=== PATIENT | female | born 1975 | race Caucasian/White ===

== ENCOUNTER 2021-06-09 16:29 | Emergency (ER) | payer MEDICARE, MEDICAID, SELFPAY ==
--- NOTE | 2021-06-09 | ECG_ITS ---
Test Reason : NUMBNESS Blood Pressure : / mmHG Vent. Rate : 072 BPM Atrial Rate : 072 BPM P-R Int : 116 ms QRS Dur : 082 ms QT Int : 404 ms P-R-T Axes : 076 075 080 degrees QTc Int : 442 ms Normal sinus rhythm Normal ECG When compared with ECG of 10-JUN-2014 16:24, No significant change was found Referred By: Generic ED Physician Electronically Signed By:JORDON MOLINA
[2021-06-09 17:55] VITALS: BP 132/69; PULSE 96; RESP 18; TEMP 36.7; O2SAT 98; BMI 24.3
[2021-06-09 20:43] LABS: Alanine Aminotransferase 9 U/L (0-31); Albumin Level 4.3 g/dL (3.5-5.0); Alkaline Phosphatase 106 U/L (39-117); Anion Gap 14 (12-20); Aspartate Amino Transferase 12 U/L (5-31); Bilirubin Total 0.3 mg/dL (0.0-1.0); Blood Urea Nitrogen 8 mg/dL (9-16); Calcium 9.7 mg/dL (8.4-10.2); Carbon Dioxide 29 mmol/L (22-29); Chloride 102 mmol/L (96-108); Creatinine Clr Calc Pharmacy 84.6; Estimated Glomerular Filt Rate > 60; Glucose Random 92 mg/dL (60-115); Potassium 3.8 mmol/L (3.3-5.1); Sodium 141 mmol/L (135-145); Total Protein 6.8 g/dL (6.5-8.0)
[2021-06-09 20:46] LABS: Basophils Absolute Auto 0.1 X10*3/uL (0.0-0.2); Basophils Percent Auto 0.6 % (0-2); Eosinophils Absolute Auto 0.2 X10*3/uL (0.0-0.4); Hemoglobin 11.9 g/dl (12.0-16.0); Imm Gran Pct Auto 0.3 % (0.0-0.4); MANUAL DIFF FLAG SCAN; SCAN SMEAR FLAG 1
[2021-06-09 20:50] LABS: Hematocrit 35.2 % (37.0-47.0); Imm Gran Abs Auto 0.04 X10*3/uL (0.00-0.03); Lymphocytes Absolute Auto 4.3 X10*3/uL (1.2-4.9); Mean Corpuscular HGB Conc 33.8 g/dl (31.0-35.0); Mean Corpuscular Hemoglobin 30.5 pg (27.0-33.0); Mean Corpuscular Volume 90.3 fL (80.0-98.0); Monocytes Absolute Auto 0.6 X10*3/uL (0.1-1.2); Monocytes Percent Auto 4.9 % (2-11); Neutrophils Absolute Auto 6.4 x10*3/uL (2.0-8.3); Neutrophils Percent Auto 55.2 % (45-73); Platelet Count 281 X10*3/uL (160-400); Red Cell Distribution Width 14.4 % (11.0-16.0); White Blood Count 11.6 X10*3/uL (4.8-10.8)
[2021-06-09 21:15] LABS: SLIDE REVIEW VERIFIED
== END 2021-06-09 23:09 | disposition left against medical advice (07) ==
PROVIDERS: Emergency Provider Emergency Medicine; PCP Internal Medicine
DX: R07.89 Other chest pain (principal); R20.0 Anesthesia of skin
CPT/HCPCS: 36415; 80053; 85025; 93005; 99283

== ENCOUNTER 2022-01-15 05:39 | Outpatient (REF) | payer MEDICARE, MEDICAID, SELFPAY | END 2022-01-15 05:40 | disposition home or self-care (01) | LOC: HO.CT 05:39 | PROVIDERS: PCP Internal Medicine; Visit Provider Psychiatry & Neurology Neurology | DX: Z13.89 Encounter for screening for other disorder (principal) ==

== ENCOUNTER 2022-01-22 10:38 | Outpatient (REF) | payer MEDICARE, MEDICAID, SELFPAY ==
--- NOTE | ~2022-01-22 | CT_ITS ---
EXAMINATION: CT HEAD WITH/WITHOUT CONTRAST CLINICAL INFORMATION: 46-year-old with seizures. COMPARISON: 05/19/2014 CT TECHNIQUE: Contiguous axial imaging was performed from the skull base to vertex before and after the administration of 85 mL of Omnipaque [address] examination was performed using dose optimization techniques as appropriate, variously including the following: *Automated exposure control *Adjustment of mA and/or kV according to patient size (this includes techniques or standardized protocols for targeted exams where dose is matched to indication/reason for exam; i.e. extremities or head) *Use of iterative reconstruction technique DLP: 1561 mGy-cm FINDINGS: Brain Volume: Normal for age within the limitations of a qualitative assessment. Structural: Mild cystic dilatation of the vellum interpositum is noted, which is an anatomic variant, unchanged in appearance. Brain and Meninges: The brain appears structurally within normal limits and is unremarkable in morphology and attenuation within the limitations of the study (streak artifact from metallic piercings overlying the right orbit and left ear partially obscuring the anterior and middle cranial fossae as well as the posterior fossa.) Earl-white matter interface is preserved. No intracranial mass lesions, extra-axial fluid collections, space-occupying process or mass effect are identified. No pathologic intracranial enhancement identified within the limitations of the exam. Ventricles and Subarachnoid Spaces: The ventricular system and subarachnoid spaces are within normal limits without hydrocephalus. Orbital Structures: Grossly unremarkable within the limitations of the study. Osseous Structures, Sinuses/Mastoids, Extracranial Soft Tissues: Possible tiny retention cyst in the sphenoid sinus on the left versus retained secretions. Osseous structures appear intact. Visualized extra cranial soft tissue structures appear grossly unremarkable. CT/CT head/brain wo/w con IMPRESSION: Normal CT of the brain without and with contrast within the limitations of the study as described above.
[2022-01-22] MEDS: iohexoL 350 MG/ML 100 ML INFUS..BTL IV (11:35)
== END 2022-01-22 10:39 | disposition home or self-care (01) ==
LOC: HO.CT 10:38
PROVIDERS: PCP Internal Medicine; Visit Provider Psychiatry & Neurology Neurology
DX: R56.9 Unspecified convulsions (principal)
CPT/HCPCS: 70470; Q9967

== ENCOUNTER 2022-07-17 16:30 | Emergency (ER) | payer MEDICARE, MEDICAID, SELFPAY ==
--- NOTE | ~2022-07-17 | XR_ITS ---
EXAMINATION: CHEST 2 VIEWS CLINICAL INFORMATION: chest pain . COMPARISON: 07/17/2016. TECHNIQUE: PA and lateral views of the chest obtained. FINDINGS: The lungs are well expanded. No focal infiltrate, effusion, edema, or pneumothorax. Cardiac and mediastinal silhouettes are within normal limits for technique. No acute bony abnormality seen. Left-sided vagal nerve stimulator incidentally noted XR/XR chest 2V IMPRESSION: No evidence of acute disease compared to 07/17/2016
--- NOTE | ~2022-07-17 | US_ITS ---
EXAMINATION: US ABDOMEN LIMITED CLINICAL INFORMATION: Right upper quadrant pain. COMPARISON: CT abdomen pelvis 03/08/2015 TECHNIQUE: Real-time imaging of the right upper quadrant abdominal viscera. FINDINGS: PANCREAS: The pancreas appears unremarkable, without masses or ductal dilatation, with the exception of the tail which is obscured by bowel gas. LIVER: The liver is normal in size. The liver contour is normal. Parenchymal echogenicity is normal. No focal hepatic lesion. There is no intrahepatic biliary duct dilatation seen. GALLBLADDER: The gallbladder is physiologically distended without evidence of stones, sludge, polyps, wall thickening or pericholecystic fluid. COMMON BILE DUCT: Normal in caliber measuring 0.3 cm in diameter. RIGHT KIDNEY: No hydronephrosis. No renal calculi or focal parenchymal lesions. The kidney measures 11.6 cm in maximum dimension. FREE FLUID: None. US/US abdomen limited IMPRESSION: No significant abnormality is seen. A cause for the patient's right upper quadrant pain has not been found.
[2022-07-17 16:45] VITALS: BP 127/69; PULSE 81; RESP 18; TEMP 36.1; O2SAT 97; BMI 23.0
--- NOTE | 2022-07-17 16:45 | ED_ITS ---
HPI - Chest Pain General Chief Complaint: General Medical Stated Complaint: flank pain Time Seen by Provider: 07/17/22 20:32 Related Data Allergies Allergy/AdvReac Type Severity Reaction Status Date / Time ciprofloxacin [From CIPRO] Allergy Unknown UNKNOWN Verified 07/17/22 16:48 From CIPRO Allergy Unknown UNKNOWN Uncoded 06/09/21 17:55 ON LICENSE OF [facility] Social History Social History Advance Directives: No Advance Directives Information Provided: No Physical Exam Vital Signs: Vital Signs: Last Vital Signs Temp 97.7 F 07/17/22 20:12 Pulse 84 07/17/22 20:12 Resp 16 07/17/22 20:12 BP 103/65 07/17/22 20:12 Pulse Ox 99 07/17/22 20:12 O2 Del Method 07/17/22 20:12 BMI result Body Mass Index 23.0 Course Course Course Narrative: RME - 46 yo female with history of seizures presents to the ER for evaluation of acute onset of severe right lower pleuritic chest pain that radiates to her back that started 1 hour ago. Crying in triage, unable to sit or move. Unable to take a deep breath. Non-tender on exam, lungs are clear on the right. Feels like she is going to pass out. Labs, EKG, CXR ordered for now. Medical Decision Making Lab Data 07/17/22 17:16 07/17/22 17:16 Labs: Lab Results 07/17/22 07/17/22 07/17/22 Range/Units 17:16 17:16 17:16 WBC 13.0 H (4.8-10.8) X10*3/uL RBC 3.85 L (4.20-5.50) X10*6/uL Hgb 11.4 L (12.0-16.0) g/dl Hct 35.0 L (37.0-47.0) % MCV 90.9 (80.0-98.0) fL MCH 29.6 (27.0-33.0) pg MCHC 32.6 (31.0-35.0) g/dl RDW 14.2 (11.0-16.0) % Plt Count 253 (160-400) X10*3/uL MPV 9.2 L (9.4-12.3) fL Immature Gran % (Auto) 0.3 (0.0-0.4) % Neut % (Auto) 62.5 (45-73) % Lymph % (Auto) 29.5 (20-40) % Steele % (Auto) 5.6 (2-11) % Eos % (Auto) 1.5 (0-4) % Baso % (Auto) 0.6 (0-2) % Lymph # (Auto) 3.8 (1.2-4.9) X10*3/uL Steele # (Auto) 0.7 (0.1-1.2) X10*3/uL Eos # (Auto) 0.2 (0.0-0.4) X10*3/uL Baso # (Auto) 0.1 (0.0-0.2) X10*3/uL Abs Immat Gran (auto) 0.04 H (0.00-0.03) X10*3/uL Absolute Neuts (auto) 8.1 (2.0-8.3) x10*3/uL Absolute Nucleated RBC 0.000 (0.0-0.012) X10*3/uL Nucleated RBC % (auto) 0.0 (0.0-0.2) /100WBC PT 11.6 (10.0-13.1) SEC INR 1.0 (0.9-1.1) APTT (26.0-36.4) SEC Sodium 138 (135-145) mmol/L Potassium 4.3 (3.3-5.1) mmol/L Chloride 101 (96-108) mmol/L Carbon Dioxide 27 (22-29) mmol/L Anion Gap 14 (12-20) BUN 8 L (9-16) mg/dL Creatinine 0.69 (0.5-1.4) mg/dL Estim Creat Clear Calc 86.0 Estimated GFR > 60 Random Glucose 88 (60-115) mg/dL Calcium 9.5 (8.4-10.2) mg/dL Magnesium 1.9 (1.6-2.6) mg/dL Total Bilirubin 0.3 (0.0-1.0) mg/dL Direct Bilirubin < 0.2 (0.0-0.5) mg/dL AST 12 (5-31) U/L ALT 8 (0-31) U/L Alkaline Phosphatase 123 H (39-117) U/L Troponin I High Sens (<3.5-17.0) ng/L Total Protein 6.8 (6.5-8.0) g/dL Albumin 4.3 (3.5-5.0) g/dL Urine Color Urine Appearance Urine pH (5.0-9.0) Ur Specific Tutwiler (1.005-1.025) Urine Protein (Neg-Trace) mg/dL Urine Glucose (UA) (Negative) mg/dL Urine Ketones (Negative) mg/dL Urine Blood (Negative) Urine Nitrite (Negative) Ur Leukocyte Esterase (Negative) 07/17/22 07/17/22 07/17/22 Range/Units 17:16 17:16 20:20 WBC (4.8-10.8) X10*3/uL RBC (4.20-5.50) X10*6/uL Hgb (12.0-16.0) g/dl Hct (37.0-47.0) % MCV (80.0-98.0) fL MCH (27.0-33.0) pg MCHC (31.0-35.0) g/dl RDW (11.0-16.0) % Plt Count (160-400) X10*3/uL MPV (9.4-12.3) fL Immature Gran % (Auto) (0.0-0.4) % Neut % (Auto) (45-73) % Lymph % (Auto) (20-40) % Steele % (Auto) (2-11) % Eos % (Auto) (0-4) % Baso % (Auto) (0-2) % Lymph # (Auto) (1.2-4.9) X10*3/uL Steele # (Auto) (0.1-1.2) X10*3/uL Eos # (Auto) (0.0-0.4) X10*3/uL Baso # (Auto) (0.0-0.2) X10*3/uL Abs Immat Gran (auto) (0.00-0.03) X10*3/uL Absolute Neuts (auto) (2.0-8.3) x10*3/uL Absolute Nucleated RBC (0.0-0.012) X10*3/uL Nucleated RBC % (auto) (0.0-0.2) /100WBC PT (10.0-13.1) SEC INR (0.9-1.1) APTT 31.6 (26.0-36.4) SEC Sodium (135-145) mmol/L Potassium (3.3-5.1) mmol/L Chloride (96-108) mmol/L Carbon Dioxide (22-29) mmol/L Anion Gap (12-20) BUN (9-16) mg/dL Creatinine (0.5-1.4) mg/dL Estim Creat Clear Calc Estimated GFR Random Glucose (60-115) mg/dL Calcium (8.4-10.2) mg/dL Magnesium (1.6-2.6) mg/dL Total Bilirubin (0.0-1.0) mg/dL Direct Bilirubin (0.0-0.5) mg/dL AST (5-31) U/L ALT (0-31) U/L Alkaline Phosphatase (39-117) U/L Troponin I High Sens 4.1 (<3.5-17.0) ng/L Total Protein (6.5-8.0) g/dL Albumin (3.5-5.0) g/dL Urine Color Yellow Urine Appearance Clear Urine pH 5.5 (5.0-9.0) Ur Specific Tutwiler <= 1.005 (1.005-1.025) Urine Protein Negative (Neg-Trace) mg/dL Urine Glucose (UA) Negative (Negative) mg/dL Urine Ketones Negative (Negative) mg/dL Urine Blood Small (1+) H (Negative) Urine Nitrite Negative (Negative) Ur Leukocyte Esterase Negative (Negative)
--- NOTE | 2022-07-17 16:47 | ECG_ITS ---
Test Reason : CHEST PAIN Blood Pressure : / mmHG Vent. Rate : 076 BPM Atrial Rate : 076 BPM P-R Int : 126 ms QRS Dur : 076 ms QT Int : 414 ms P-R-T Axes : 071 078 068 degrees QTc Int : 465 ms Normal sinus rhythm Normal ECG When compared with ECG of 09-JUN-2021 19:54, No significant change was found Referred By: Mary Carmen Menchaca Electronically Signed By:Prosper Richard
--- OUTSIDE RECORDS SUMMARY | 2022-07-17 17:25 | XMS_ITS | Continuity of Care Document ---
:1975 Author Organization [address], [address] [place] [address]- Care Team Providers Name Role Phone Leana GUO, Jac Primary Care Physician [place] [facility] [place] 01/31/21 - 03/02/[address], [address] [place], [place] [address] Attending Physician: Marcos Lopez Admitting Physician: AdmtrMarcos Referring Physician: Admtr, Ar8 Allergies, Adverse Reactions, Alerts Substance Reaction Severity Status famotidine Famotidine allergy Persistent Severe Active dizzy,lightheaded Cipro rash Active Medications acetaminophen 325 mg oral capsule 2 capsule = 650 mg, By Mouth, Every 4 hours, PRN as needed for pain, # 90 capsule, 0 Refills, Maintenance, 01/31/21 13:18:00 EDT, Capsule, Partial fill upon patient request if the prescription is for aschedule II opioid drug. Start Date: 01/31/21 Status: Orderedacetaminophen-oxyCODONE 325 mg-5 mg oral tablet 1, tablet, By Mouth, Every 6 hours, PRN, # 20 tablet, Refills 0, Tot. Refills 0, Maintenance, Pain ,Moderate, 01/16/21 10:02:00 EDT, Route to Pharmacy Electronically, [id number] Tablet, Partial fill upon patient request if the prescr... Start Date: 01/16/21 Status: OrderedAlprazolam 0.5 mg, By Mouth, 4 times a day, Refills 0, Tot. Refills 0, 01/25/08 13:42:52 EDT Start Date: 01/25/08 Status: Orderedcitalopram 40 mg oral tablet 40 mg, 1, tablet, By Mouth, Daily in AM, # 30 tablet, Refills 0, Maintenance, 09/14/18 8:57:22 EDT Start Date: 09/14/18 Status: OrderedDilantin = 300 mg, By Mouth, 3 times a day, 0 Refills, 01/25/08 13:41:32 EDT Start Date: 01/25/08 Status: Orderedibuprofen 600 mg oral tablet 600 mg, 1, tablet, By Mouth, Every 6 hours, Refills 0, Maintenance, 01/16/21 7:44:00 EDT, Partial fill upon patient request if the prescription is for a schedule II opioid drug. Start Date: 01/16/21 Status: OrderedLorazepam 0 Refills, Maintenance, 01/03/21 10:41:00 EDT, Partial fill upon patient request if the prescriptionis for a schedule II opioid drug. Start Date: 01/03/21 Status: Ordered Social History Social History Type Response Smoking Status 10 or more cigarettes (1/2 p ack or more)/day in last 30 days entered on: 09/25/18 Sex Female
--- OUTSIDE RECORDS SUMMARY | 2022-07-17 17:25 | XMS_ITS | Continuity of Care Document ---
:1975 Author Organization [address], [address] [place] [address]- Care Team Providers Name Role Phone Leana GUO, [facility] Primary Care Physician Encounter [facility] [place] Date(s): 01/03/21 - 01/10/[address], [address] [place], [place] [address] Attending Physician: Alistair Petty MD Allergies, Adverse Reactions, Alerts Substance Reaction Severity Status famotidine Famotidine allergy Persistent Severe Active dizzy,lightheaded Cipro rash Active Medications Alprazolam 0.5 mg, By Mouth, 4 times a [...] 01/25/08 13:41:32 EDT Start Date: 01/25/08 Status: OrderedLorazepam 0 Refills, Maintenance, 01/03/21 10:41:00 EDT, Partial fill upon patient request if the prescriptionis for a schedule II opioid drug. Start Date: 01/03/21 Status: Ordered Vital Signs Most recent to oldest [Reference Range]: 1 Height 162.56 cm (01/03/21 10:38 AM) Weight 70.5 kg (01/03/21 10:38 AM) Body Mass Index [18.5-24.99] 26.68 *H* (01/03/21 10:38 AM) Social History Social History Type Response Smoking Status 10 or more cigarettes (1/2 p ack or more)/day in last 30 days entered on: 09/25/18 Sex Female
--- OUTSIDE RECORDS SUMMARY | 2022-07-17 17:25 | XMS_ITS | Continuity of Care Document ---
:1975 Author Organization [facility] Address [address] [place] [address]- Care Team Providers Name Role Phone Leana GUO, [facility] Primary Care Physician [id number] Date(s): 01/10/21 - 02/09/21 [facility] [address] [place] [address] Allergies, Adverse Reactions, Alerts Substance Reaction Severity [...] 01/16/21 10:02:00 EDT, Route to Pharmacy Electronically, [facility] #[id number] Tablet, Partial fill upon patient request if [...]
--- OUTSIDE RECORDS SUMMARY | 2022-07-17 17:25 | XMS_ITS | Continuity of Care Document ---
:1975 Author Organization [address], [address] [place] [address]- Care Team Providers Name Role Phone Leana GUO, Jac Primary Care Physician [place] [facility] [place](s): 09/06/20 - 10/06/[address], [address] [place] [address]- Attending Physician: Marcos Lopez Admitting Physician: AdmtrMarcos [...] 01/25/08 13:41:32 EDT Start Date: 01/25/08 Status: Ordered Social History Social History Type Response Smoking Status 10 or more cigarettes (1/2 p ack or more)/day in last 30 days entered on: 09/25/18 Sex Female
--- OUTSIDE RECORDS SUMMARY | 2022-07-17 17:25 | XMS_ITS | Continuity of Care Document ---
:1975 Author Organization [address], [address] [place] [address]- Care Team Providers Name Role Phone Leana GUO, Jac Primary Care Physician [place] [facility] [place] - 03/02/[address], [address] [place], [place] [address] Allergies, Adverse Reactions, Alerts Substance Reaction Severity [...] 01/16/21 10:02:00 EDT, Route to Pharmacy Electronically, [facility] #[id number] Tablet, Partial fill upon patient request if [...]
--- OUTSIDE RECORDS SUMMARY | 2022-07-17 17:25 | XMS_ITS | Continuity of Care Document ---
:1975 Author Organization [address], [address] [place] [address]- Care Team Providers Name Role Phone Jac Dueñas MD Primary Care Physician Encounter [facility] [place] Date(s): 01/05/21 - 03/02/[address], [address] [place], [place] [address] Attending Physician: Alistair Petty MD Referring Physician: Jac Dueñas MD Allergies, Adverse Reactions, Alerts Substance Reaction [...] 01/16/21 10:02:00 EDT, [id number] Tablet, Partial fill upon patient request if [...]
--- OUTSIDE RECORDS SUMMARY | 2022-07-17 17:25 | XMS_ITS | Continuity of Care Document ---
:1975 Author Organization [address], [address] [place] [address]- Care Team Providers Name Role Phone Jac Dueñas MD Primary Care Physician Encounter [facility] [place] Date(s): 01/31/21 - 02/07/[address], [address] [place], [place] [address] Attending Physician: Not on Staff, Attending MD Allergies, Adverse Reactions, Alerts Substance Reaction [...] 01/16/21 10:02:00 EDT, [id number] Tablet, Partial fill upon patient request if [...] oldest [Reference Range]: 1 Height 162.56 cm (01/31/21 1:16 PM) Weight 70.0 kg (01/31/21 1:16 PM) Body Mass Index [18.5-24.99] 26.49 *H* (01/31/21 1:16 PM) Social History Social History Type Response Smoking Status 10 or more cigarettes (1/2 p ack or more)/day in last 30 days entered on: 09/25/18 Sex Female
--- OUTSIDE RECORDS SUMMARY | 2022-07-17 17:25 | XMS_ITS ---
:1975 Author Care Team Providers Name Role Phone JUSTINE GARNER Primary Care Provider [phone] Allergies Code Code System Name Reaction Severity Status Onset NKDA ? Medications Name Status Start Date Stop Date ? ? alprazolam Completed ? 11/05/2021 alprazolam 0.5 mg tablet Active ? Not nicole ilable amoxicillin 500 mg capsule Active ? Not a vailable TAKE 1 CAPSULE EVERY 8 HOURS amoxicillin 875 mg tablet Completed ? 2021 TAKE 1 TABLET BY MOUTH TWICE DAILY FOR 5 DAYS amoxicillin 875 mg-potassium clavulanate 125 mg tablet Completed ? 11/05/2021 TAKE 1 TABLET BY MOUTH EVERY 12 HOURS FOR 10 DAYS cholecalciferol (vitamin D3) 50 mcg (2,000 unit) capsule Active ? Not available TAKE 1 CAPSULE BY MOUTH EVERY DAY citalopram Completed ? 11/05/2021 citalopram 40 mg tablet Active ? Not avai lable TAKE 1 TABLET BY MOUTH EVERY DAY diclofenac sodium 50 mg tablet,delayed release Active 0 02/11/2022 Not available TAKE 1 TABLET BY MOUTH TWICE DAILY ibuprofen Completed ? 02/11/2022 ibuprofen 600 mg tablet Completed ? 11/06/19 22 TAKE 1 TABLET BY MOUTH EVERY 8 HOURS NEEDED FOR PAIN ibuprofen 800 mg tablet Active ? Not avai lable TAKE 1 TABLET BY MOUTH THREE TIMES DAILY NEEDED lorazepam Completed ? 11/05/2021 lorazepam 2 mg tablet Active ? Not availa ble TAKE 1 TABLET BY MOUTH EVERY DAY AT BEDTIME nicotine 21 mg/24 hr daily transdermal patch Completed ? 11/05/2021 TENA 1 PATCH TO THE SKIN QD ofloxacin 0.3 % ear drops Active ? Not av ailable INSTILL 5 DROPS TO AFFECTED EAR TWICE DAILY FOR 7 DAYS oxycodone-acetaminophen 5 mg-325 mg tablet Completed ? 11/05/2021 TAKE 1 TABLET BY MOUTH EVERY 6 HOURS NEEDED FOR MODERATE CHRYSTAL N phenytoin sodium extended 100 mg capsule Completed ? 11/05/2021 TAKE 3 CAPSULES BY MOUTH THREE TIMES DAILY Xcopri 200 mg tablet Completed ? 11/05/2021 TAKE 1 TABLET BY MOUTH EVERY DAY Problems None recorded. Procedures Date Name Performed by ? ? Procedure on Ovary Information not avai lable Results Lab Results None recorded. Past Encounters Encounter Date Diagnosis Provider 02/11/2022 Otitis Externa of Left Ear Bibi cox PA: [address] [place], [place] [phone], Ph. 11/05/2021 Infection of Tooth Kornelia Moysis Mary barrera PA: [address] [place] [phone], Ph. Social History Tobacco Smoking Status Current Every Day Smoker Vaccine List None recorded. Plan of Care Reminders Provider Appointments None recorded. ? ? Lab None recorded. ? ? Referral None recorded. ? ? Procedures None recorded. ? ? Surgeries None recorded. ? ? Imaging None recorded. ? ? Vitals 02/11/2022 03:55PM Established Patient Blood Pressure 112/72 mm[Hg] 11/05/2021 03:45PM Established Patient Blood Pressure 119/73 mm[Hg] 12/08/2020 01:04PM New Patient Blood Pressure 122/80 mm[Hg]
--- OUTSIDE RECORDS SUMMARY | 2022-07-17 17:26 | XMS_ITS | Continuity of Care Document ---
:1975 Author Organization [address], [address] [place] [address]- Care Team Providers Name Role Phone Leana GUO, Jac Primary Care Physician Encounter [facility] [place] Date(s): 09/04/20 - 10/04/[address], [address] [place], [place] [address] Allergies, Adverse Reactions, Alerts Substance Reaction [...]
--- OUTSIDE RECORDS SUMMARY | 2022-07-17 17:26 | XMS_ITS | Continuity of Care Document ---
:1975 Author Organization [address], [address] [place] [address]- Care Team Providers Name Role Phone Leana GUO, Jac Primary Care Physician En[place] [facility] [place](s): 01/02/21 - 02/01/[address], [address] [place], [place] [address] Allergies, Adverse Reactions, Alerts Substance Reaction [...] 01/16/21 10:02:00 EDT, Route to Pharmacy Electronically, [facility] #[id number] Tablet, Partial fill upon patient request if [...]
--- OUTSIDE RECORDS SUMMARY | 2022-07-17 17:26 | XMS_ITS | Continuity of Care Document ---
:1975 Author Organization [address], [address] [place] [address]- Care Team Providers Name Role Phone Leana GUO, Jac Primary Care Physician En[place] [facility] [place] Date(s): 06/07/19 - 06/14/[address], [address] [place] [address]- [facility] Attending Physician: Jovanny GUO, Alistair Haynes Referring Physician: Jac Dueñas MD Allergies, Adverse [...] 13:41:32 EDT Start Date: 01/25/08 Status: Ordered Vital Signs Most recent to oldest [Reference Range]: 1 Height 162.56 cm (06/07/19 9:52 AM) Weight 67.75 kg (06/07/19 9:52 AM) Body Mass Index [18.5-24.99] 25.64 *H* (06/07/19 9:52 AM) Social History Social History Type Response Smoking Status 10 or more cigarettes (1/2 p ack or more)/day in last 30 days entered on: 09/25/18 Sex Female
--- OUTSIDE RECORDS SUMMARY | 2022-07-17 17:26 | XMS_ITS | Continuity of Care Document ---
:1975 Author Organization [address], [address] [place] [address]- Care Team Providers Name Role Phone Leana GUO, Jac Primary Care Physician [place] [facility] [facility] [place] - 10/06/[address], [address] [place], [place] [address] Attending Physician: Jovanny GUO, Alistair Haynes Allergies, Adverse Reactions, Alerts Substance Reaction Severity [...]
--- OUTSIDE RECORDS SUMMARY | 2022-07-17 17:26 | XMS_ITS | Continuity of Care Document ---
:1975 Author Organization [address], [address] [place] [address]- Care Team Providers Name Role Phone Leana GUO, Jac Primary Care Physician [place] [facility] [place]): [place] - 07/21/[address], [address] [place] [address]- [facility] Attending Physician: Jovanyn GUO, Alistair Haynes Referring Physician: Rohini Webb Allergies, Adverse Reactions, Alerts Substance Reaction Severity [...]
--- OUTSIDE RECORDS SUMMARY | 2022-07-17 17:26 | XMS_ITS | Continuity of Care Document ---
:1975 Author Organization [facility] Address [address] [place] [address]- Care Team Providers Name Role Phone Jac Dueñas MD Primary Care Physician Encounter [facility] Date(s): 01/16/21 - 01/16/[address] [address] Discharge Disposition: A-D/C Home Attending Physician: Alistair Petty MD Admitting Physician: Alistair Petty MD Referring Physician: Alistair Petty MD Allergies, Adverse Reactions, Alerts Substance Reaction Severity Status famotidine Famotidine allergy Persistent Severe Active dizzy,lightheaded Cipro rash Active Medications acetaminophen-oxyCODONE 325 mg-5 mg oral tablet 1, tablet, By Mouth, Every 6 hours, PRN, # 20 tablet, Refills 0, Tot. Refills 0, Maintenance, Pain ,Moderate, 01/16/21 10:02:00 EDT, [id number]t, Partial fill upon patient request if [...] 01/25/08 13:41:32 EDT Start Date: 01/25/08 Status: OrderedFENTanyl Inj 25 mcg, Injection, IV Push Slowly, Every 5 minutes for 8 doses/times, in PACU ONLY, Hold for: RR less than 8 or over-sedation, PRN for Pain , Moderate, Repeat until Pain Score is less than or equal to 2, Routine, 01/16/21 8:08:00 EDT, Stop date ... Start Date: 01/16/21 Stop Date: 01/16/21 Status: Discontinuedibuprofen 600 mg oral tablet 600 mg, 1, [...] Ordered Vital Signs Most recent to oldest 1 2 3 [Reference Range]: Height 162.56 cm 162.56 cm (01/16/21 7:48 AM) (01/09/21 5:04 PM) Weight 70.0 kg 70.0 kg (01/16/21 7:48 AM) (01/09/21 5:04 PM) Oxygen Saturation [94-100 95 % 97 % 96 % %] (01/16/21 9:30 AM) (01/16/21 9:15 AM) (01/16/21 9:0 0 AM) Pulse Rate [55-90 bpm] 70 bpm (01/16/21 7:48 AM) Body Mass Index 26.49 26.49 [18.5-24.99] *H* *H* (01/16/21 7:48 AM) (01/09/21 5:04 PM) Blood Pressure 97/56 mm Hg 97/60 mm Hg 101/67 mm Hg [90-138/55-84 mm Hg] (01/16/21 9:30 AM) (01/16/21 9:15 AM) ( 1 9:00 AM) Respiratory Rate [16-30 10 br/min 12 br/min 12 br/mi n br/min] *L* *L* *L* (01/16/21 9:30 AM) (01/16/21 9:15 AM) (01/16/21 9:0 5 AM) Temperature [96.8-100.4 97.4 DegF 97.0 DegF 97.6 Deg F DegF] (01/16/21 9:30 AM) (01/16/21 8:45 AM) (01/16/21 7:4 8 AM) Mode of Delivery (Oxygen) Room air Room air Room a ir (01/16/21 9:30 AM) (01/16/21 9:15 AM) (01/16/21 9:0 0 AM) Blood pressure sites Arm, right Arm, right (01/16/21 8:45 AM) (01/16/21 7:48 AM) Temperature Route Temporal Temporal Temporal (01/16/21 9:30 AM) (01/16/21 8:45 AM) (01/16/21 7:4 8 AM) Dry Weight 69.4 kg 70.0 kg (01/16/21 7:48 AM) (01/09/21 5:04 PM) Weight Obtained Via Patient/family stated (01/09/21 5:04 PM) Dry Weight Obtained Via Standing scale (01/16/21 7:48 AM) Social History Social History Type Response Smoking Status 10 or more cigarettes (1/2 p ack or more)/day in last 30 days entered on: 09/25/18 Sex Female
--- OUTSIDE RECORDS SUMMARY | 2022-07-17 17:26 | XMS_ITS | Continuity of Care Document ---
:1975 Author Organization [address], [address] [place] [address]- Care Team Providers Name Role Phone Leana GUO, Jac Primary Care Physician Encounter [facility] [place] Date(s): 06/21/19 - 07/01/[address], [address] [place] [address]- [facility] Attending Physician: Marcos Lopez Admitting Physician: AdmtrMarcos [...]
[2022-07-17 17:27] LABS: MANUAL DIFF FLAG NO
[2022-07-17 17:34] LABS: Prothrombin Time 11.6 SEC (10.0-13.1)
[2022-07-17 17:37] LABS: Basophils Absolute Auto 0.1 X10*3/uL (0.0-0.2); Basophils Percent Auto 0.6 % (0-2); Eosinophils Absolute Auto 0.2 X10*3/uL (0.0-0.4); Eosinophils Percent Auto 1.5 % (0-4); Hemoglobin 11.4 g/dl (12.0-16.0); Imm Gran Abs Auto 0.04 X10*3/uL (0.00-0.03); Imm Gran Pct Auto 0.3 % (0.0-0.4); Lymphocytes Absolute Auto 3.8 X10*3/uL (1.2-4.9); Lymphocytes Percent Auto 29.5 % (20-40); Mean Corpuscular HGB Conc 32.6 g/dl (31.0-35.0); Mean Corpuscular Hemoglobin 29.6 pg (27.0-33.0); Mean Corpuscular Volume 90.9 fL (80.0-98.0); Mean Platelet Volume 9.2 fL (9.4-12.3); Monocytes Absolute Auto 0.7 X10*3/uL (0.1-1.2); Monocytes Percent Auto 5.6 % (2-11); Neutrophils Absolute Auto 8.1 x10*3/uL (2.0-8.3); Neutrophils Percent Auto 62.5 % (45-73); Partial Thromboplastin Time 31.6 SEC (26.0-36.4); Platelet Count 253 X10*3/uL (160-400); Red Blood Count 3.85 X10*6/uL (4.20-5.50); Red Cell Distribution Width 14.2 % (11.0-16.0)
[2022-07-17 17:50] LABS: Alanine Aminotransferase 8 U/L (0-31); Albumin Level 4.3 g/dL (3.5-5.0); Alkaline Phosphatase 123 U/L (39-117); Anion Gap 14 (12-20); Aspartate Amino Transferase 12 U/L (5-31); Bilirubin Direct < 0.2 mg/dL (0.0-0.5); Bilirubin Total 0.3 mg/dL (0.0-1.0); Blood Urea Nitrogen 8 mg/dL (9-16); Calcium 9.5 mg/dL (8.4-10.2); Carbon Dioxide 27 mmol/L (22-29); Chloride 101 mmol/L (96-108); Estimated Glomerular Filt Rate > 60; Glucose Random 88 mg/dL (60-115); Magnesium 1.9 mg/dL (1.6-2.6); Potassium 4.3 mmol/L (3.3-5.1); Sodium 138 mmol/L (135-145); Total Protein 6.8 g/dL (6.5-8.0)
[2022-07-17 17:58] LABS: Troponin-I High Sensitivity 4.1 ng/L (<3.5-17.0)
[2022-07-17 20:12] VITALS: BP 103/65; PULSE 84; RESP 16; TEMP 36.5; O2SAT 99
--- NOTE | 2022-07-17 20:14 | MHC.EDTECH ---
this pct just assumed care of pt ,vitals sihn taken and urine sample send to lab .
[2022-07-17 20:34] LABS: Appearance Urine Clear; Color Urine Yellow; Glucose Urine UA Negative (Negative); Leukocyte Esterase Urine Negative (Negative); Nitrite Urine Negative (Negative); PH 5.5 (5.0-9.0); Specific Gravity - Urine <= 1.005 (1.005-1.025); UMIC TRIGGER UACC YES; Urine Blood Small (1+) (Negative); Urine Ketones Negative (Negative); Urine Protein Negative (Neg-Trace)
[2022-07-17 20:40] LABS: Bacteria Urine None Seen (None Seen); Hyaline Casts Urine 0-2 /LPF (0-2); RBC Urine 0-2 /HPF (0-2); Squamous Epithelial Cell Urine 0-2 /HPF (0-2); WBC Urine 0-5 /HPF (0-5)
[2022-07-17] MEDS: 0.9 % Sodium Chloride 1,000 ML 999 ML IV (21:02)
--- NOTE | 2022-07-17 21:11 | PC.NURSE ---
PT A&Ox4, reports 5/10 RUQ pain. States hurts to breath . IV established. PT refused ordered pain medications I don't want nothing that is going to make me dizzy . Provider notified.
--- NOTE | 2022-07-17 21:27 | ED.ABDPAIN ---
HPI - Abdominal Pain General Chief Complaint: General Medical Stated Complaint: flank pain Time Seen by Provider: 07/17/22 20:32 Source: patient Mode of arrival: ambulatory Limitations: no limitations History of Present Illness HPI narrative: Patient with no significant abdominal complaints history of seizures noticed sudden onset of pain in the right upper quadrant for last 2 days increases on deep breath no cough no nausea no vomiting no abdominal pain in the past no urinary complaints no fever or chills patient denies any shortness of breath no leg pain or swelling Related Data Previous Rx's Medication Instructions Recorded ibuprofen 600 mg tablet 600 mg PO Q6H PRN fever or pain 07/17/22 #30 tabs Allergies Allergy/AdvReac Type Severity Reaction Status Date / Time ciprofloxacin [From [facility]RO] Allergy Unknown UNKNOWN Verified 07/17/22 16:48 From C[facility]RO Allergy Unknown UNKNOWN Uncoded 06/09/21 17:55 Review of Systems Review of Systems Yes all other systems are reviewed and are negative PMFSH Social History Social History Alcohol intake: never Smoked in Last 30 Days: Yes Use of substances other than those prescribed or required for medical reasons: No Advance Directives: No Advance Directives Information Provided: No Patient : No Physical Exam ED Vital Signs: Vital Signs - 24 hr 07/17/22 16:45 07/17/22 20:12 07/17/22 21:43 Temperature 97.0 F 97.7 F Pulse Rate 81 84 78 Respiratory Rate 18 16 16 Blood Pressure 127/69 103/65 104/62 Pulse Oximetry 97 99 100 Oxygen Delivery Method Room Air Room Air Room Air 07/17/22 21:45 Temperature 97.8 F Pulse Rate Respiratory Rate Blood Pressure Pulse Oximetry Oxygen Delivery Method BMI result Body Mass Index 23.0 Appearance: Alert. Oriented X3. No acute distress. Eyes: PERRLA, No Nystagmus ENT: Pharynx normal. Oral Mucosa moist Neck: Normal inspection. Neck supple. CVS: Normal heart rate and rhythm. Pulses normal. Respiratory: No respiratory distress. Equal air entry bilateral, no wheezing/rales/rhonchi Abdomen: Soft , tenderness right upper quadrant no rebound tenderness or guarding Bowel sounds are present, no mass palpable, no CVA tenderness Skin: Skin warm and dry. Normal skin color. Normal skin turgor. Extremities: No lower extremity edema. No calf tenderness Neuro: Oriented X 3. No motor deficit. Medical Decision Making Medical Decision Making [facility] Narrative: Pain right upper quadrant pain without any nausea or vomiting etiology not very clear we will do ultrasound to rule out cholelithiasis Patient's labs are stable ultrasound negative urine negative slightly leukocytosis etiology not very clear patient D-dimer is also negative unlikely to be PE chest x-ray negative for pneumonia likely patient has pleurisy discharge patient home on ibuprofen Differential Diagnosis Cholelithiasis /cholecystitis/pneumonia/pleurisy/PE Lab Data [facility] Lab Attestation statement: I reviewed the patient's lab results. 07/17/22 17:16 07/17/22 17:16 Labs: Lab Results 07/17/22 07/17/22 07/17/22 Range/Units 17:16 17:16 17:16 WBC 13.0 H (4.8-10.8) X10*3/uL RBC 3.85 L (4.20-5.50) X10*6/uL Hgb 11.4 L (12.0-16.0) g/dl Hct 35.0 L (37.0-47.0) % MCV 90.9 (80.0-98.0) fL MCH 29.6 (27.0-33.0) pg MCHC 32.6 (31.0-35.0) g/dl RDW 14.2 (11.0-16.0) % Plt Count 253 (160-400) X10*3/uL MPV 9.2 L (9.4-12.3) fL Immature Gran % (Auto) 0.3 (0.0-0.4) % Neut % (Auto) 62.5 (45-73) % Lymph % (Auto) 29.5 (20-40) % [place] % (Auto) 5.6 (2-11) % Eos % (Auto) 1.5 (0-4) % Baso % (Auto) 0.6 (0-2) % Lymph # (Auto) 3.8 (1.2-4.9) X10*3/uL [place] # (Auto) 0.7 (0.1-1.2) X10*3/uL Eos # (Auto) 0.2 (0.0-0.4) X10*3/uL Baso # (Auto) 0.1 (0.0-0.2) X10*3/uL Abs Immat Gran (auto) 0.04 H (0.00-0.03) X10*3/uL Absolute Neuts (auto) 8.1 (2.0-8.3) x10*3/uL Absolute Nucleated RBC 0.000 (0.0-0.012) X10*3/uL Nucleated RBC % (auto) 0.0 (0.0-0.2) /100WBC PT 11.6 (10.0-13.1) SEC INR 1.0 (0.9-1.1) APTT (26.0-36.4) SEC D-Dimer High Sensitivty NG/ML Sodium 138 (135-145) mmol/L Potassium 4.3 (3.3-5.1) mmol/L Chloride 101 (96-108) mmol/L Carbon Dioxide 27 (22-29) mmol/L Anion Gap 14 (12-20) BUN 8 L (9-16) mg/dL Creatinine 0.69 (0.5-1.4) mg/dL Estim Creat Clear Calc 86.0 Estimated GFR > 60 Random Glucose 88 (60-115) mg/dL Calcium 9.5 (8.4-10.2) mg/dL Magnesium 1.9 (1.6-2.6) mg/dL Total Bilirubin 0.3 (0.0-1.0) mg/dL Direct Bilirubin < 0.2 (0.0-0.5) mg/dL AST 12 (5-31) U/L ALT 8 (0-31) U/L Alkaline Phosphatase 123 H (39-117) U/L Troponin I High Sens (<3.5-17.0) ng/L Total Protein 6.8 (6.5-8.0) g/dL Albumin 4.3 (3.5-5.0) g/dL Urine Color Urine Appearance Urine pH (5.0-9.0) Ur Specific [place] (1.005-1.025) Urine Protein (Neg-Trace) mg/dL Urine Glucose (UA) (Negative) mg/dL Urine Ketones (Negative) mg/dL Urine Blood (Negative) Urine Nitrite (Negative) Ur Leukocyte Esterase (Negative) Urine RBC (0-2) /HPF Urine WBC (0-5) /HPF Ur Squamous Epith Cells (0-2) /HPF Urine Bacteria (None Seen) Hyaline Casts (0-2) /LPF 07/17/22 07/17/22 07/17/22 Range/Units 17:16 17:16 20:20 WBC (4.8-10.8) X10*3/uL RBC (4.20-5.50) X10*6/uL Hgb (12.0-16.0) g/dl Hct (37.0-47.0) % MCV (80.0-98.0) fL MCH (27.0-33.0) pg MCHC (31.0-35.0) g/dl RDW (11.0-16.0) % Plt Count (160-400) X10*3/uL MPV (9.4-12.3) fL Immature Gran % (Auto) (0.0-0.4) % Neut % (Auto) (45-73) % Lymph % (Auto) (20-40) % [place] % (Auto) (2-11) % Eos % (Auto) (0-4) % Baso % (Auto) (0-2) % Lymph # (Auto) (1.2-4.9) X10*3/uL [place] # (Auto) (0.1-1.2) X10*3/uL Eos # (Auto) (0.0-0.4) X10*3/uL Baso # (Auto) (0.0-0.2) X10*3/uL Abs Immat Gran (auto) (0.00-0.03) X10*3/uL Absolute Neuts (auto) (2.0-8.3) x10*3/uL Absolute Nucleated RBC (0.0-0.012) X10*3/uL Nucleated RBC % (auto) (0.0-0.2) /100WBC PT (10.0-13.1) SEC INR (0.9-1.1) APTT 31.6 (26.0-36.4) SEC D-Dimer High Sensitivty 226 NG/ML Sodium (135-145) mmol/L Potassium (3.3-5.1) mmol/L Chloride (96-108) mmol/L Carbon Dioxide (22-29) mmol/L Anion Gap (12-20) BUN (9-16) mg/dL Creatinine (0.5-1.4) mg/dL Estim Creat Clear Calc Estimated GFR Random Glucose (60-115) mg/dL Calcium (8.4-10.2) mg/dL Magnesium (1.6-2.6) mg/dL Total Bilirubin (0.0-1.0) mg/dL Direct Bilirubin (0.0-0.5) mg/dL AST (5-31) U/L ALT (0-31) U/L Alkaline Phosphatase (39-117) U/L Troponin I High Sens 4.1 (<3.5-17.0) ng/L Total Protein (6.5-8.0) g/dL Albumin (3.5-5.0) g/dL Urine Color Yellow Urine Appearance Clear Urine pH 5.5 (5.0-9.0) Ur Specific [place] <= 1.005 (1.005-1.025) Urine Protein Negative (Neg-Trace) mg/dL Urine Glucose (UA) Negative (Negative) mg/dL Urine Ketones Negative (Negative) mg/dL Urine Blood Small (1+) H (Negative) Urine Nitrite Negative (Negative) Ur Leukocyte Esterase Negative (Negative) Urine RBC 0-2 (0-2) /HPF Urine WBC 0-5 (0-5) /HPF Ur Squamous Epith Cells 0-2 (0-2) /HPF Urine Bacteria None Seen (None Seen) Hyaline Casts 0-2 (0-2) /LPF Medications Administered Discontinued Medications Generic Name Dose Route Start Last Admin Trade Name Freq PRN Reason Stop Dose Admin Sodium Chloride 1,000 mls @ 999 mls/hr 07/17/22 20:53 07/17/22 21:02 Ns IV 07/17/22 21:53 999 mls/hr .Q1H1M ONE Administration Ketorolac Tromethamine 30 mg 07/17/22 21:15 07/17/22 21:46 Ketorolac Tromethamine 30 Mg/Ml Vial IVPUSH 07/17/22 21:16 30 mg ONCE ONE Administration Discharge Plan Discharge Clinical Impression: Pleurisy Patient Disposition: Home, Self-Care Instructions: Pleurisy (ED) Additional Instructions: Drink plenty of fluids Ibuprofen for pain Report to the ER if worsening of pain/shortness of breath/high-grade fever Prescriptions: New ibuprofen 600 mg tablet 600 mg PO Q6H PRN (Reason: fever or pain) Qty: 30 0RF Interventions: ED Discharge Assessment Last Done: 07/17/22 22:28 Discharge Date/Time: 07/17/22 22:32
[2022-07-17 21:43] VITALS: BP 104/62; PULSE 78; RESP 16; O2SAT 100
[2022-07-17 21:45] VITALS: TEMP 36.6
[2022-07-17] MEDS: Ketorolac Tromethamine 30 MG/ML VIAL IVPUSH (21:46)
[2022-07-17 21:50] LABS: D Dimer High Sensitivity 226 NG/ML
== END 2022-07-17 22:32 | disposition home or self-care (01) ==
PROVIDERS: Physician Assistant; Emergency Provider Internal Medicine; PCP Internal Medicine
DX: R10.11 Right upper quadrant pain (principal); R09.1 Pleurisy; Z79.899 Other long term (current) drug therapy
CPT/HCPCS: 36415; 71046; 76705; 80048; 80076; 81001; 83735; 84484; 85025; 85379; 85610; 85730; 93005; 96374; 99284; 99285; J1885

== ENCOUNTER 2023-02-06 10:33 | Emergency (ER) | payer MEDICARE, MEDICAID, SELFPAY ==
--- NOTE | ~2023-02-06 | XR_ITS ---
EXAMINATION: XR CHEST 2 VIEW CLINICAL INFORMATION: Chest tube back pain COMPARISON: 07/17/2022 TECHNIQUE: PA and lateral views of the chest obtained. FINDINGS: The lungs are clear. There are no pleural effusions. The cardiomediastinal silhouette is normal. A left-sided vagal nerve stimulation device is again noted.. XR/XR chest 2V IMPRESSION: No acute cardiopulmonary disease.
--- NOTE | 2023-02-06 11:08 | ED_ITS ---
HPI - General Adult General Chief complaint: Dizziness Stated complaint: dehydrated/ back pain Time Seen by Provider: 02/06/23 11:07 Source: patient and family (patient's mother) Mode of arrival: ambulatory Limitations: no limitations History of Present Illness HPI narrative: Patient is a 47 year old assigned female at with a history of a seizure disorder presenting to the emergency department today feeling generally unwell and left sided flank pain. Patient states that she has been feeling generally unwell over the last few days and at the same time, a burning / tingling sensation started on the left side of her rib cage. Patient states that she did have chickenpox as a child. Patient denies any lightheadedness, abdominal pain, nausea, vomiting, fever, chills, blurry vision, double vision, loss of vision, chest pain, difficulty breathing, shortness of breath, back pain, night sweats, pain with urination, increased urinary frequency, increased urinary urgency, blood in her urine or stool, syncope or a near syncopal episode, recent trauma or falls, bowel incontinence, bladder incontinence, bowel retention, bladder retention, or any other complaints at this time. Onset (ago): day(s) (4) Location: left (torso) Severity: mild Severity scale (1-10): 3 Quality: burning Pain Consistency: constant Relieving factors: none Exacerbating factors: none Associated symptoms: denies other symptoms Treatments prior to arrival: none Related Data Previous Rx's Medication Instructions Recorded ibuprofen 600 mg tablet 600 mg PO Q6H PRN fever or pain 07/17/22 #30 tabs prednisone 20 mg tablet 20 mg PO DAILY 7 days #7 tabs 02/06/23 valacyclovir 1 gram tablet 1,000 mg PO TID 7 days #21 tabs 02/06/23 Allergies Allergy/AdvReac Type Severity Reaction Status Date / Time ciprofloxacin [From [facility]] Allergy Unknown UNKNOWN Verified 02/06/23 10:45 From [facility] Allergy Unknown UNKNOWN Uncoded 02/06/23 10:45 Review of Systems Constitutional: Constitutional: Reports no additional constitutional complaints, Denies chills, Denies fever(s) and Denies night sweats Eyes: Eyes: Reports no additional eye complaints, Denies blurry vision, Denies change in vision, Denies diplopia, Denies eye discharge, Denies loss of vision and Denies eye pain ENT: Denies dizziness Cardiovascular: Cardiovascular: Reports no additional cardiovascular complaints, Denies chest pain, Denies lightheadedness, Denies Loss of Consciousness and Denies dyspnea Respiratory: Respiratory: Reports no additional respiratory complaints and Denies dyspnea Gastrointestinal: Gastrointestinal: Reports no additional gastrointestinal complaints, Denies abdominal pain, Denies melena, Denies hematochezia, Denies change in bowel habits and Denies change in stool character Genitourinary: Genitourinary: Denies hematuria, Denies urinary frequency, Denies dysuria, Denies urinary incontinence, Denies urinary hesitancy and Denies urinary urgency Musculoskeletal: Musculoskeletal: Reports no additional musculoskeletal complaints, Denies numbness and Denies tingling Integumentary/Breasts: Comments: left sided torso burning sensation Neurologic: Denies dizziness, Denies loss of vision, Denies numbness and Denies tingling Psychiatric: Psychiatric: Reports no additional psychiatric complaints Endocrine: Endocrine: Reports no additional endocrine complaints Hematologic/Lymphatic: Hematologic/Lymphatic: Reports no additional hematologic/lymphatic complaints Allergic/Immunologic: Allergic/Immunologic: Reports no additional allergic/immunologic complaints PMFSH Past Medical History Attestation statement: The following information was validated with the patient. (Patient's mother validated all information.) Source: old records reviewed, obtained from family (patient's mother provided additional history and confirmed the history provided by the patient.) and nursing notes reviewed Medical History Grand mal seizure Social History Social History Alcohol intake: never Smoked in Last 30 Days: Yes Use of substances other than those prescribed or required for medical reasons: No Advance Directives: No Advance Directives Information Provided: No Patient : No Physical Exam ED Vital Signs: Vital Signs - 24 hr 02/06/23 11:09 02/06/23 11:31 02/06/23 13:20 Temperature 98 F 98.0 F Pulse Rate 81 73 72 Respiratory Rate 19 18 14 Blood Pressure 119/61 129/66 111/66 Pulse Oximetry 98 100 Oxygen Delivery Method Room Air Room Air Room Air BMI result Body Mass Index 23.7 Const General: cooperative, no acute distress, alert and awake Nutritional Appearance: well nourished Orientation/consciousness: patient oriented x3 Limitations: no limitations HENMT Head: Yes normal to inspection and Yes atraumatic Ears: hearing grossly normal bilaterally and external ears normal General nose exam: Normal external nose present, no nasal discharge noted and no epistaxis Face and sinus: Yes normal facial exam, No abrasion and No laceration Mouth: Normal oral and palatal mucosa present, no drooling and no muffled voice Eyes General: appearance normal, both eyes and all related structures Periorbital: periorbital findings normal Eyelids: Yes eyelids normal Conjunctivae: conjunctivae normal Pupils: Equal, round and reactive pupils present EOM: EOMs intact bilaterally Neck Neck: Yes normal visual inspection, Yes full ROM and Yes no lymphadenopathy Chest Chest palpation & inspection: normal inspection of the chest Resp Effort & Inspection: normal respiratory effort and able to speak in complete sentences GI Inspection: Yes normal to inspection Neuro General: patient oriented x3 and moves all extremities Cranial nerves: Yes Equal, round and reactive pupils present Cognition (Neuro): normal cognition Motor exam (neuro): 5/5 motor strength present throughout Sensory Exam: Normal double simultaneous stimulation for sensation Coordination: [id number] test normal Extrem General: Yes normal to inspection, Yes full ROM and Yes capillary refill normal Psych Appearance: grossly normal Mental Status: mental status grossly normal Affect: normal affect Attitude: cooperative Thought process: Normal thought process present Thought content: Normal thought content present Insight: Good insight present (Psych) Course Course Course Narrative: This is a rapid medical exam: Additional HPI, ROS, PE not included below will be deferred to primary provider. Patient is a 47-year-old female presenting to the emergency department with complaint of decreased appetite, dehydration and left back pain which she describes as pins and needles since friday. Was seen at urgent care on Friday, was told that if symptoms did not improve patient should come to the ED. Plan: EKG, labs Medications Administered Generic Name Dose Route Start Last Admin Trade Name Freq PRN Reason Stop Dose Admin Sodium Chloride 1,000 mls @ 999 mls/hr 02/06/23 14:15 02/06/23 14:07 Ns IV 02/06/23 15:15 999 mls/hr .Q1H1M DENNIS Administration Discontinued Medications Generic Name Dose Route Start Last Admin Trade Name Freq PRN Reason Stop Dose Admin Sodium Chloride 1,000 mls @ 999 mls/hr 02/06/23 11:45 02/06/23 14:08 Ns IV 02/06/23 12:45 Infused .Q1H1M [facility] Infusion Sodium Chloride 250 mls @ 999 mls/hr 02/06/23 14:00 02/06/23 14:04 Ns IV 02/06/23 14:15 Not Given .Q16M DENNIS Medical Decision Making Medical Decision Making [facility] Narrative: Patient is a 47 year old assigned female at with a history of a seizure disorder presenting to the emergency department today with left sided torso stinging and feeling generally unwell. Patient's physical exam was unremarkable. Patient's blood work was unremarkable. Patient's urine showed no acute process. Patient's EKG was unremarkable. Patient's chest x-ray showed no acute process. I explained my physical exam findings as well as all test results to the patient and the patient's mother. I answered all questions asked by the patient and the patient's mother. Patient received IV fluids which she stated helped her symptoms significantly. Patient's clinical presentation is most consistent with the beginning of a shingles out break. Will treat with anti-viral and oral steroid. I stressed the importance of the patient taking her medication as prescribed. I stressed the importance of the patient following up with her primary care provider. I stressed the importance of the patient returning to the emergency department immediately if her symptoms were to worsen or if she were to develop any dizziness, shortness of breath, difficulty breathing, chest pain, blurry vision, loss of vision, nausea, vomiting, abdominal pain, fever, chills, back pain, or any other complaints. Patient and the patient's mother verbalized agreement and understanding with this treatment plan and discharge. Differential Diagnosis Differential Diagnoses: The differential diagnosis associated with the presentation includes Shingles Fatigue Viral illness Admission/Observation Consideration of admission/observation: Escalation of care including admission/observation considered Patient would have been admitted to the hospital had her work up had any findings where hospital admission was appropriate and her clinical presentation warranted hospital admission. Lab Data MDM Lab Attestation statement: I reviewed the patient's lab results. My interpretation of these studies and their corresponding values is that they are grossly normal. 02/06/23 12:29 02/06/23 12:29 Labs: Lab Results 02/06/23 02/06/23 02/06/23 Range/Units 12:10 12:29 12:29 WBC 10.9 H (4.8-10.8) X10*3/uL RBC 3.96 L (4.20-5.50) X10*6/uL Hgb 11.8 L (12.0-16.0) g/dl Hct 35.5 L (37.0-47.0) % MCV 89.6 (80.0-98.0) fL MCH 29.8 (27.0-33.0) pg MCHC 33.2 (31.0-35.0) g/dl RDW 13.8 (11.0-16.0) % Plt Count 261 (160-400) X10*3/uL MPV 9.2 L (9.4-12.3) fL Immature Gran % (Auto) 0.4 (0.0-0.4) % Neut % (Auto) 63.1 (45-73) % Lymph % (Auto) 29.3 (20-40) % Esmeralda % (Auto) 5.9 (2-11) % Eos % (Auto) 0.7 (0-4) % Baso % (Auto) 0.6 (0-2) % Lymph # (Auto) 3.2 (1.2-4.9) X10*3/uL Esmeralda # (Auto) 0.6 (0.1-1.2) X10*3/uL Eos # (Auto) 0.1 (0.0-0.4) X10*3/uL Baso # (Auto) 0.1 (0.0-0.2) X10*3/uL Abs Immat Gran (auto) 0.04 H (0.00-0.03) X10*3/uL Absolute Neuts (auto) 6.9 (2.0-8.3) x10*3/uL Absolute Nucleated RBC 0.000 (0.0-0.012) X10*3/uL Nucleated RBC % (auto) 0.0 (0.0-0.2) /100WBC Sodium 140 (135-145) mmol/L Potassium 4.3 (3.3-5.1) mmol/L Chloride 101 (96-108) mmol/L Carbon Dioxide 26 (22-29) mmol/L Anion Gap 17 (12-20) BUN 7 L (9-16) mg/dL Creatinine 0.66 (0.5-1.4) mg/dL Estim Creat Clear Calc 89.0 Estimated GFR > 60 Random Glucose 92 (60-115) mg/dL Calcium 9.5 (8.4-10.2) mg/dL Total Bilirubin 0.3 (0.0-1.0) mg/dL AST 11 (5-31) U/L ALT 10 (0-31) U/L Alkaline Phosphatase 94 (39-117) U/L Troponin I High Sens (<3.5-17.0) ng/L Total Protein 6.8 (6.5-8.0) g/dL Albumin 4.3 (3.5-5.0) g/dL Urine Color Yellow Urine Appearance Clear Urine pH 6.0 (5.0-9.0) Ur Specific [place] 1.010 (1.005-1.025) Urine Protein Negative (Neg-Trace) mg/dL Urine Glucose (UA) Negative (Negative) mg/dL Urine Ketones 15 (Negative) mg/dL Urine Blood Moderate (2+) H (Negative) Urine Nitrite Negative (Negative) Ur Leukocyte Esterase Negative (Negative) Urine RBC 11-20 H (0-2) /HPF Urine WBC 0-5 (0-5) /HPF Ur Squamous Epith Cells 6-10 (0-2) /HPF Urine Bacteria None Seen (None Seen) Hyaline Casts 0-2 (0-2) /LPF 02/06/23 Range/Units 12:29 WBC (4.8-10.8) X10*3/uL RBC (4.20-5.50) X10*6/uL Hgb (12.0-16.0) g/dl Hct (37.0-47.0) % MCV (80.0-98.0) fL MCH (27.0-33.0) pg MCHC (31.0-35.0) g/dl RDW (11.0-16.0) % Plt Count (160-400) X10*3/uL MPV (9.4-12.3) fL Immature Gran % (Auto) (0.0-0.4) % Neut % (Auto) (45-73) % Lymph % (Auto) (20-40) % Esmeralda % (Auto) (2-11) % Eos % (Auto) (0-4) % Baso % (Auto) (0-2) % Lymph # (Auto) (1.2-4.9) X10*3/uL Esmeralda # (Auto) (0.1-1.2) X10*3/uL Eos # (Auto) (0.0-0.4) X10*3/uL Baso # (Auto) (0.0-0.2) X10*3/uL Abs Immat Gran (auto) (0.00-0.03) X10*3/uL Absolute Neuts (auto) (2.0-8.3) x10*3/uL Absolute Nucleated RBC (0.0-0.012) X10*3/uL Nucleated RBC % (auto) (0.0-0.2) /100WBC Sodium (135-145) mmol/L Potassium (3.3-5.1) mmol/L Chloride (96-108) mmol/L Carbon Dioxide (22-29) mmol/L Anion Gap (12-20) BUN (9-16) mg/dL Creatinine (0.5-1.4) mg/dL Estim Creat Clear Calc Estimated GFR Random Glucose (60-115) mg/dL Calcium (8.4-10.2) mg/dL Total Bilirubin (0.0-1.0) mg/dL AST (5-31) U/L ALT (0-31) U/L Alkaline Phosphatase (39-117) U/L Troponin I High Sens < 2.7 (<3.5-17.0) ng/L Total Protein (6.5-8.0) g/dL Albumin (3.5-5.0) g/dL Urine Color Urine Appearance Urine pH (5.0-9.0) Ur Specific [place] (1.005-1.025) Urine Protein (Neg-Trace) mg/dL Urine Glucose (UA) (Negative) mg/dL Urine Ketones (Negative) mg/dL Urine Blood (Negative) Urine Nitrite (Negative) Ur Leukocyte Esterase (Negative) Urine RBC (0-2) /HPF Urine WBC (0-5) /HPF Ur Squamous Epith Cells (0-2) /HPF Urine Bacteria (None Seen) Hyaline Casts (0-2) /LPF Independent Interpretation I performed an independent interpretation of an: EKG and Plain X-Ray Interpretation: My interpretation is in agreement with the radiologist's impression of this imaging study. --- EXAMINATION: XR CHEST 2 VIEW CLINICAL INFORMATION: Chest tube back pain COMPARISON: 07/17/2022 TECHNIQUE: PA and lateral views of the chest obtained. FINDINGS: The lungs are clear. There are no pleural effusions. The cardiomediastinal silhouette is normal. A left-sided vagal nerve stimulation device is again noted.. XR/XR chest 2V IMPRESSION: No acute cardiopulmonary disease. Dictated By: Raoul Ahumada MD Signed By: Electronically signed by Raoul Ahumada MD 02/06/23 1148 Vent. Rate: 069 BPM ? ? Atrial Rate: 069 BPM P-R Int: 128 ms? QRS Dur: 084 ms QT Int: 412 ms ? ? ? P-R-T Axes: 073 078 079 degrees QTc Int: 441 ms ? Normal sinus rhythm with sinus arrhythmia Normal ECG When compared with ECG of 17-JUL-2022 17:07, No significant change was found DD/ 1208 Radiology Impression Discussion of test interpretation with radiology: I have reviewed the radi ologist's reading. Independent Historian Clinical information obtained from an independent historian. History obtained from or confirmed by: Parent (patient's mother provided additional history and confirmed the history provided by the patient.) Prescription Management I considered prescription management with: Antiviral (patient prescribed an antiviral for shingles) and Other (patient prescribed an oral corticosteroids) Chronic Conditions Patient?s care impacted by: Other (seizure disorder) Discharge Plan Discharge Clinical Impression: Shingles Patient Disposition: Home, Self-Care Instructions: Shingles (ED) Additional Instructions: Follow up with your primary care provider. Return to the emergency department immediately if your symptoms worsen or if you develop any dizziness, shortness of breath, difficulty breathing, chest pain, blurry vision, loss of vision, nausea, vomiting, abdominal pain, fever, chills, back pain, or any other complaints. Prescriptions: New valacyclovir 1 gram tablet 1,000 mg PO TID 7 Days Qty: 21 0RF prednisone 20 mg tablet 20 mg PO DAILY 7 Days Qty: 7 0RF No Action ibuprofen 600 mg tablet 600 mg PO Q6H PRN (Reason: fever or pain) Qty: 30 0RF Referrals: Jac Dueñas MD [Primary Care Provider] - Stand Alone Forms: Work/School Release Print Language: Arabic
[2023-02-06 11:09] VITALS: BP 119/61; PULSE 81; RESP 19; TEMP 36.6; O2SAT 98; BMI 23.7
--- NOTE | 2023-02-06 11:17 | ECG_ITS ---
Test Reason : chest pain Blood Pressure : / mmHG Vent. Rate : 069 BPM Atrial Rate : 069 BPM P-R Int : 128 ms QRS Dur : 084 ms QT Int : 412 ms P-R-T Axes : 073 078 079 degrees QTc Int : 441 ms Normal sinus rhythm with sinus arrhythmia Normal ECG When compared with ECG of 17-JUL-2022 17:07, No significant change was found Referred By: Nannette Owens Electronically Signed By:JORDON MOLINA
[2023-02-06 11:31] VITALS: BP 129/66; PULSE 73; RESP 18; TEMP 36.7
[2023-02-06 12:15] LABS: Appearance Urine Clear; Color Urine Yellow; Glucose Urine UA Negative (Negative); Leukocyte Esterase Urine Negative (Negative); Nitrite Urine Negative (Negative); UMIC TRIGGER UACC YES; Urine Blood Moderate (2+) (Negative); Urine Ketones 15 mg/dL (Negative); Urine Protein Negative (Neg-Trace)
[2023-02-06 12:18] LABS: Bacteria Urine None Seen (None Seen); Hyaline Casts Urine 0-2 /LPF (0-2); WBC Urine 0-5 /HPF (0-5)
--- NOTE | 2023-02-06 12:31 | PC.NURSE ---
pt a&ox3, vss, nsr on the hospital monitor, ekg displayed nsr, pt comes in d/t lack of PO intake and dehydration. pt verbalizes 6/10 pain on the left side of the back/abdomen. pain is a pins/needles/burning sensation. pt has a hx of grand mal seizure - states that her last seizure was on friday. pt verbalizes that she is able to notice an aura prior to the seizure. urine previously sent to lab. labs drawn and sent to lab by [facility].
[2023-02-06 12:34] LABS: MANUAL DIFF FLAG NO
[2023-02-06 12:35] LABS: Basophils Absolute Auto 0.1 X10*3/uL (0.0-0.2); Basophils Percent Auto 0.6 % (0-2); Eosinophils Absolute Auto 0.1 X10*3/uL (0.0-0.4); Eosinophils Percent Auto 0.7 % (0-4); Hematocrit 35.5 % (37.0-47.0); Hemoglobin 11.8 g/dl (12.0-16.0); Imm Gran Abs Auto 0.04 X10*3/uL (0.00-0.03); Imm Gran Pct Auto 0.4 % (0.0-0.4); Lymphocytes Absolute Auto 3.2 X10*3/uL (1.2-4.9); Lymphocytes Percent Auto 29.3 % (20-40); Mean Corpuscular HGB Conc 33.2 g/dl (31.0-35.0); Mean Corpuscular Hemoglobin 29.8 pg (27.0-33.0); Mean Corpuscular Volume 89.6 fL (80.0-98.0); Mean Platelet Volume 9.2 fL (9.4-12.3); Monocytes Absolute Auto 0.6 X10*3/uL (0.1-1.2); Monocytes Percent Auto 5.9 % (2-11); Neutrophils Absolute Auto 6.9 x10*3/uL (2.0-8.3); Neutrophils Percent Auto 63.1 % (45-73); Platelet Count 261 X10*3/uL (160-400); Red Blood Count 3.96 X10*6/uL (4.20-5.50); Red Cell Distribution Width 13.8 % (11.0-16.0); White Blood Count 10.9 X10*3/uL (4.8-10.8)
[2023-02-06 12:55] LABS: Alanine Aminotransferase 10 U/L (0-31); Albumin Level 4.3 g/dL (3.5-5.0); Alkaline Phosphatase 94 U/L (39-117); Anion Gap 17 (12-20); Aspartate Amino Transferase 11 U/L (5-31); Bilirubin Total 0.3 mg/dL (0.0-1.0); Blood Urea Nitrogen 7 mg/dL (9-16); Calcium 9.5 mg/dL (8.4-10.2); Carbon Dioxide 26 mmol/L (22-29); Chloride 101 mmol/L (96-108); Estimated Glomerular Filt Rate > 60; Glucose Random 92 mg/dL (60-115); Potassium 4.3 mmol/L (3.3-5.1); Sodium 140 mmol/L (135-145); Total Protein 6.8 g/dL (6.5-8.0)
[2023-02-06] MEDS: 0.9 % Sodium Chloride 1,000 ML 999 ML IV ×2 (13:01→14:07)
[2023-02-06 13:07] LABS: Troponin-I High Sensitivity < 2.7 ng/L (<3.5-17.0)
[2023-02-06 13:20] VITALS: BP 111/66; PULSE 72; RESP 14; O2SAT 100
--- NOTE | 2023-02-06 14:09 | PC.NURSE ---
IVF administered per provider order.
== END 2023-02-06 15:26 | disposition home or self-care (01) ==
PROVIDERS: Registered Nurse Emergency; Emergency Provider Student in an Organized Health Care Education/Training Program; PCP Internal Medicine
DX: B02.8 Zoster with other complications (principal); R07.89 Other chest pain; R42 Dizziness and giddiness; E86.0 Dehydration; M54.50 Low back pain, unspecified; Z79.899 Other long term (current) drug therapy
CPT/HCPCS: 36415; 71046; 80053; 81001; 84484; 85025; 93005; 96360; 99284; 99285

== ENCOUNTER → 2023-02-06 11:17 | Outpatient (BNV) | payer MEDICARE, MEDICAID, SELFPAY | PROVIDERS: Emergency Provider Student in an Organized Health Care Education/Training Program; PCP Internal Medicine; Visit Provider Internal Medicine | DX: I49.9 Cardiac arrhythmia, unspecified (principal) | CPT/HCPCS: 93010 ==

== ENCOUNTER 2023-07-11 21:57 | Observation (INO) | payer MEDICARE, MEDICAID, SELFPAY ==
[2023-07-11 22:03] VITALS: BP 102/52; PULSE 97; RESP 20; TEMP 36.3; O2SAT 100; BMI 24.9
--- NOTE | 2023-07-11 22:37 | ED.GENADULT ---
HPI - General Adult General Chief complaint: General Medical Stated complaint: Flank pain Time Seen by Provider: 07/11/23 22:33 Source: patient Mode of arrival: ambulatory Limitations: no limitations History of Present Illness HPI narrative: 47 yo female with PMH of seizures, anxiety notes she was diagnosed with bronchitis a couple of weeks ago and was treated with cough medications but no abx or steroids. She notes she woke up last night with worsening symptoms, weakness, coughing, difficulty breathing and pain on R side when she takes a deep breath. She has not traveled and takes no OCPs, family member notes about a year ago she had pleurisy. MD complaint: R sided rib pain Onset (ago): hour(s) (middle of the night 130am) Location: chest Radiation: non-radiation Severity: severe Quality: stabbing Pain Consistency: constant Relieving factors: none Exacerbating factors: other (inspiration, movement, coughing) Associated symptoms: cough, loss of appetite and malaise Treatments prior to arrival: none Related Data Previous Rx's Medication Instructions Recorded ibuprofen 600 mg tablet 600 mg PO Q6H PRN fever or pain 07/17/22 #30 tabs prednisone 20 mg tablet 20 mg PO DAILY 7 days #7 tabs 02/06/23 valacyclovir 1 gram tablet 1,000 mg PO TID 7 days #21 tabs 02/06/23 Allergies Allergy/AdvReac Type Severity Reaction Status Date / Time ciprofloxacin [From CIPRO] Allergy Unknown UNKNOWN Verified 02/06/23 10:45 From CIPRO Allergy Unknown UNKNOWN Uncoded 02/06/23 10:45 Review of Systems Review of Systems: Constitutional : No Weight loss, No Fever, pos Chills ENT/Mouth : No sore throat, No Rhinorrhea Eyes: No Eye Pain, No Swelling Cardiovascular : pos Chest Pain, pos SOB, no Dyspnea on Exertion, No Orthopnea, No Edema, No Palpitations Respiratory : pos Cough, No Sputum Gastrointestinal : pos Nausea, No Vomiting, No Diarrhea, No abdominal Pain, No Hematochezia, No Melena Genitourinary : No Dysuria, No Urinary Frequency Musculoskeletal : No joint pain, No Myalgias, No Joint Swelling Skin : No Skin Lesions, No rash Neuro : pos Weakness, No Numbness, No Dizziness, No Headache Psych : No Anxiety/Panic, No Depression All other systems reviewed and are negative [facility] Past Medical History Attestation statement: The following information was validated with the patient. Source: old records reviewed Onset Date is defined in the Problem List Problems that require an onset date and time if occurred within 24 hrs of arrival to the ED Aortic Dissection and Rupture; Neurologic impairment; Cardiopulmonary Arrest; Endotracheal Intubation; Insertion or Replacement of Mechanical Circulatory Assist Device Medical History Grand mal seizure Social History Social History (Updated 07/11/23 @ 23:10 by Nereida Hope DO) Alcohol intake: never Patient Tobacco Use Status: Tobacco use Unknown Advance Directives: No Advance Directives Information Provided: No Physical Exam ED Vital Signs: Vital Signs - 24 hr 07/11/23 22:03 07/11/23 23:43 Temperature 97.4 F 97 F Pulse Rate 97 84 Respiratory Rate 20 14 Blood Pressure 102/52 L 112/62 Pulse Oximetry 100 100 Oxygen Delivery Method Room Air Room Air BMI result Body Mass Index 24.9 Appearance: Alert. Oriented X3. No acute distress. Eyes: Pupils equal, round and reactive to light. ENT: Pharynx normal. Neck: Normal inspection. Neck supple. CVS: Normal heart rate and rhythm. Pulses normal. Respiratory: No respiratory distress. Breath sounds diminished R base with splinting ?rales R base. Abdomen: Soft and nontender. Skin: Skin warm and dry. Normal skin color. Normal skin turgor. Extremities: No lower extremity edema. No calf ttp Neuro: Oriented X 3. No motor deficit. No sensory deficit. Course Course Course Narrative: repeat morphine for pain with some improvement no issues with bleeding or black/bloody stools - lovenox ordered discussed PE - states Dad had VTE but mom states he was hospitalized and blamed it after prostate cancer Medications Administered Discontinued Medications Generic Name Dose Route Start Last Admin Trade Name Freq PRN Reason Stop Dose Admin Sodium Chloride 1,000 mls @ 999 mls/hr 07/11/23 23:00 07/12/23 00:51 Ns IV 07/12/23 00:00 Infused .Q1H1M DENNIS Infusion Ceftriaxone Sodium 1 gm/ 50 mls @ 100 mls/hr 07/11/23 23:00 07/12/23 00:53 Sodium Chloride IV 07/11/23 23:29 Infused ONCE ONE Infusion Iohexol 65 ml 07/12/23 00:16 07/12/23 00:17 Iohexol 350 Mg/Ml 100 Ml Infus..Btl IV 07/12/23 00:17 65 ml ONCE ONE Administration Ketorolac Tromethamine 15 mg 07/11/23 22:51 07/11/23 23:15 Ketorolac Tromethamine 15 Mg/Ml Vial IVPUSH 07/11/23 22:52 15 mg ONCE ONE Administration Morphine Sulfate 4 mg 07/11/23 22:51 07/11/23 23:17 Morphine Sulfate 4 Mg/Ml Cartridge IVPUSH 07/11/23 22:52 4 mg ONCE ONE Administration Protocol Medical Decision Making Medical Decision Making MDM Narrative: 47 yo female with PMH of seizures, anxiety here with 2 weeks of bronchitis no steroids or antibiotics now with abrupt worsening R sided pain and cough - at this time diminished lung sounds in RLL possible pneumonia, PTX - will obtain labs, CXR, EKG, troponin, ddimer - IV morphine and toradol for pain ordered. Differential Diagnosis Differential Diagnoses: The differential diagnosis associated with the presentation includes pneumonia, VTE, bronchitis, pleurisy Admission/Observation Consideration of admission/observation: Escalation of care including admission/observation considered admit for pain control for infarction and PE Consult Healthcare Provider Management of the patient was discussed with: Hospitalist (will admit) Lab Data [facility] Lab Attestation statement: I reviewed the patient's lab results. 07/11/23 23:11 07/11/23 23:11 Labs: Lab Results 07/11/23 07/11/23 07/11/23 Range/Units 22:25 23:11 23:50 WBC 13.4 H (4.8-10.8) X10*3/uL RBC 3.65 L (4.20-5.50) X10*6/uL Hgb 10.9 L (12.0-16.0) g/dl Hct 32.6 L (37.0-47.0) % MCV 89.3 (80.0-98.0) fL MCH 29.9 (27.0-33.0) pg MCHC 33.4 (31.0-35.0) g/dl RDW 14.3 (11.0-16.0) % Plt Count 301 (160-400) X10*3/uL MPV 8.8 L (9.4-12.3) fL Immature Gran % (Auto) 0.4 (0.0-0.4) % Neut % (Auto) 78.1 H (45-73) % Lymph % (Auto) 14.2 L (20-40) % [place] % (Auto) 6.5 (2-11) % Eos % (Auto) 0.4 (0-4) % Baso % (Auto) 0.4 (0-2) % Lymph # (Auto) 1.9 (1.2-4.9) X10*3/uL [place] # (Auto) 0.9 (0.1-1.2) X10*3/uL Eos # (Auto) 0.1 (0.0-0.4) X10*3/uL Baso # (Auto) 0.1 (0.0-0.2) X10*3/uL Abs Immat Gran (auto) 0.06 H (0.00-0.03) X10*3/uL Absolute Neuts (auto) 10.5 H (2.0-8.3) x10*3/uL Absolute Nucleated RBC 0.000 (0.0-0.012) X10*3/uL Nucleated RBC % (auto) 0.0 (0.0-0.2) /100WBC D-Dimer High Sensitivty 320 NG/ML Sodium 141 (135-145) mmol/L Potassium 3.8 (3.3-5.1) mmol/L Chloride 104 (96-108) mmol/L Carbon Dioxide 27 (22-29) mmol/L Anion Gap 14 (12-20) BUN 11 (9-16) mg/dL Creatinine 0.81 (0.5-1.4) mg/dL Estim Creat Clear Calc 78.4 Estimated GFR > 60 Random Glucose 114 (60-115) mg/dL Lactic Acid 1.3 (0.5-2.0) mmol/L Calcium 9.5 (8.4-10.2) mg/dL Magnesium 1.9 (1.6-2.6) mg/dL Total Bilirubin 0.3 (0.0-1.0) mg/dL Direct Bilirubin 0.2 (0.0-0.5) mg/dL AST 12 (5-31) U/L ALT 7 (0-31) U/L Alkaline Phosphatase 121 H (39-117) U/L Troponin I High Sens < 2.7 (<3.5-17.0) ng/L Total Protein 6.8 (6.5-8.0) g/dL Albumin 3.9 (3.5-5.0) g/dL Urine Color Yellow Urine Appearance Clear Urine pH >= 9.0 (5.0-9.0) Ur Specific [place] 1.010 (1.005-1.025) Urine Protein Negative (Neg-Trace) mg/dL Urine Glucose (UA) Negative (Negative) mg/dL Urine Ketones Negative (Negative) mg/dL Urine Blood Small (1+) H (Negative) Urine Nitrite Negative (Negative) Ur Leukocyte Esterase Negative (Negative) Urine RBC 6-10 H (0-2) /HPF Urine WBC 0-5 (0-5) /HPF Ur Squamous Epith Cells 0-2 (0-2) /HPF Urine Bacteria None Seen (None Seen) Hyaline Casts 0-2 (0-2) /LPF Influenza Type A (PCR) NEGATIVE (Negative) Influenza Type B (PCR) NEGATIVE (Negative) RSV RNA Qual (PCR) NEGATIVE (Negative) SARS-CoV-2 RNA (RT-PCR) NEGATIVE (Negative) Independent Interpretation I performed an independent interpretation of an: EKG, Plain X-Ray (RLL opacity) and CT Scan (VTE) Interpretation: Rate: 94 Rhythm: NSR [place]: normal Normal P waves. Normal BORA. Normal QRS complex. ST T wave : normal no VIVEK qTC: 447 prior studies: no acute ischemia The study has been interpreted contemporaneously by me. . Radiology Impression Discussion of test interpretation with radiology: I discussed test interpretation with the radiologist and I have reviewed the radiologist's reading. Independent Historian Clinical information obtained from an independent historian. History obtained from or confirmed by: Parent External Record Review External record reviewed: Inpatient record Critical Care Time Critical Care Time Critical Care Time: Yes Total Critical Care Time: 60 Attestation: repeat IV morphine for pain x 2, treatment with lovenox for PE I attest to this time spent taking care of the patient Discharge Plan Discharge Clinical Impression: Embolism, pulmonary with infarction, Pleuritic chest pain Patient Disposition: Admitted As Inpatient Prescriptions: No Action ibuprofen 600 mg tablet 600 mg PO Q6H PRN (Reason: fever or pain) Qty: 30 0RF valacyclovir 1 gram tablet 1,000 mg PO TID 7 Days Qty: 21 0RF prednisone 20 mg tablet 20 mg PO DAILY 7 Days Qty: 7 0RF
[2023-07-11 23:43] VITALS: BP 112/62; PULSE 84; RESP 14; TEMP 36.1; O2SAT 100
--- NOTE | 2023-07-12 01:27 | PM.IMHP ---
History of Present Illness Date of Service: 07/12/23 Chief Complaint: Chest Pain This is a 47-year-old female with pertinent history of seizure disorder, mood disorder who presents to the emergency department for evaluation of chest pain. Patient states she started having right-sided chest pain 3 weeks prior to presentation. It has been progressive and worse 1 day prior to presentation. No relieving factors. Worse with inspiration. She went to urgent care about 3 weeks ago and was diagnosed with bronchitis. No relief with inhalers. No similar complaints in the past. Patient states her dad had a history of blood clots in the legs and lungs. No personal history of blood clots. No recent travels, history of trauma. No personal history of malignancy. No fever, chills, nausea, vomiting, palpitations, shortness of breath, abdominal pain, changes in urinary or bowel habits. Endorses dry cough. Not on OCPs In the emergency department, imaging with right-sided pulmonary embolus Review of Systems Constitutional: Constitutional: Reports no additional constitutional complaints Cardiovascular: Cardiovascular: Reports no additional cardiovascular complaints Respiratory: Respiratory: Reports cough and Reports pain on inspiration Gastrointestinal: Gastrointestinal: Reports no additional gastrointestinal complaints Genitourinary: Genitourinary: Reports no additional female genitourinary complaints [facility] Medical History Mood disorder Grand mal seizure Pertinent family history: No family history of early CAD Social History Alcohol intake: never Patient Tobacco Use Status: Tobacco use Unknown Smoked in Last 30 Days: Yes Use of substances other than those prescribed or required for medical reasons: No Advance Directives: No Advance Directives Information Provided: No Patient : No Meds Allergies Allergy/AdvReac Type Severity Reaction Status Date / Time ciprofloxacin [From CIPRO] Allergy Unknown UNKNOWN Verified 02/06/23 10:45 From CIPRO Allergy Unknown UNKNOWN Uncoded 02/06/23 10:45 Home Medications Medication Instructions Recorded Confirmed Last Taken Type alprazolam 0.5 mg tablet 0.5 mg PO DAILY 07/12/23 07/12/23 Unknown History alprazolam 1 mg tablet 1 mg PO TID 07/12/23 07/12/23 Unknown History citalopram 40 mg tablet 40 mg PO DAILY 07/12/23 07/12/23 Unknown History fluoxetine 10 mg capsule 10 mg PO DAILY 07/12/23 07/12/23 Unknown History lorazepam 2 mg tablet 2 mg PO BEDTIME 07/12/23 07/12/23 Unknown History Physical Exam Vital Signs and Narrative: Vital Signs: Last Vital Signs Temp 97 F 07/11/23 23:43 Pulse 84 07/11/23 23:43 Resp 14 07/11/23 23:43 BP 112/62 07/11/23 23:43 Pulse Ox 100 07/11/23 23:43 O2 Del Method Room Air 07/11/23 23:43 BMI result Body Mass Index 24.9 Middle-aged female lying in bed in no distress Neck supple, no JVD Regular rate and rhythm, S1-S2 heard Regular breath sounds bilaterally, no wheezing or crackles appreciated Abdomen soft nontender, no guarding, no rigidity Patient is awake, alert and oriented to self, place, time and person ; no focal motor deficit Psych: Normal mood No pedal edema Results Labs 07/11/23 23:11 07/11/23 23:11 Labs: Laboratory Results - last 24 hr 07/11/23 07/11/23 07/11/23 22:25 23:11 23:50 MCV 89.3 MCH 29.9 MCHC 33.4 RDW 14.3 Plt Count 301 MPV 8.8 L Immature Gran % (Auto) 0.4 Neut % (Auto) 78.1 H Lymph % (Auto) 14.2 L [place] % (Auto) 6.5 Eos % (Auto) 0.4 Baso % (Auto) 0.4 Lymph # (Auto) 1.9 [place] # (Auto) 0.9 Eos # (Auto) 0.1 Baso # (Auto) 0.1 Abs Immat Gran (auto) 0.06 H Absolute Neuts (auto) 10.5 H Absolute Nucleated RBC 0.000 Nucleated RBC % (auto) 0.0 PT 11.3 INR 0.9 APTT 30.5 D-Dimer High Sensitivty 320 Anion Gap 14 Estim Creat Clear Calc 78.4 Estimated GFR > 60 Random Glucose 114 Lactic Acid 1.3 Calcium 9.5 Magnesium 1.9 Total Bilirubin 0.3 Direct Bilirubin 0.2 AST 12 ALT 7 Alkaline Phosphatase 121 H Total Protein 6.8 Albumin 3.9 Urine Color Yellow Urine Appearance Clear Urine pH >= 9.0 Ur Specific [place] 1.010 Urine Protein Negative Urine Glucose (UA) Negative Urine Ketones Negative Urine Blood Small (1+) H Urine Nitrite Negative Ur Leukocyte Esterase Negative Urine RBC 6-10 H Urine WBC 0-5 Ur Squamous Epith Cells 0-2 Urine Bacteria None Seen Hyaline Casts 0-2 Influenza Type A (PCR) NEGATIVE Influenza Type B (PCR) NEGATIVE RSV RNA Qual (PCR) NEGATIVE SARS-CoV-2 RNA (RT-PCR) NEGATIVE Imaging Radiologist's Impressions: Impressions Chest X-Ray 07/11/23 22:35 IMPRESSION: 1. New focal airspace opacities in the right lower lobe concerning for aspiration or pneumonia in the appropriate clinical context. 2. Possible trace amount of right-sided pleural fluid. Chest CTA 07/12/23 00:00 IMPRESSION: Right lower lobe pulmonary emboli. Right lower lung field infiltrate likely early infarction and less likely early infiltrate. VTE: positive. Assessment and Plan (1) Embolism, pulmonary with infarction: Status: Acute Plan This is a 47-year-old female with pertinent history of seizure disorder, mood disorder who presents to the emergency department for evaluation of chest pain #. Acute right lower lobe PE, non massive: Will admit patient and initiate therapeutic Lovenox. Symptomatic p.r.n. for analgesia. Transition to p.o. anticoagulants prior to discharge. Patient's dad with history of VTE. Outpatient follow-up with Hematology. #. Reactive leukocytosis: Defer antibiotics #. Seizure disorder: On Dilantin #. Mood disorder: Continue home antihypertensives Med rec pending DVT prophylaxis: Therapeutic Lovenox Full code Quality Stroke Does the patient have a stroke diagnosis?: No VTE Prior VTE?: No VTE Risk Level:: Medical - moderate - high VTE Device Contraindication: Treatment Not Indicated VTE Drug Contraindication: N/A - Med Ordered
--- NOTE | 2023-07-12 01:48 | PC.NURSE ---
Tool over care at 11:30pm from DAVID Mccollum, pt medicated per sep and pain management. pt able to speak in full sentence, no respiratory distress at this time. report given to DAVID Hand.
[2023-07-12 01:52] VITALS: BP 112/61; PULSE 81; RESP 14; O2SAT 99
--- NOTE | 2023-07-12 02:10 | PC.NURSE ---
pt states feeling too tired to completed rec unsure of accuracy.
--- NOTE | 2023-07-12 02:54 | PC.NURSE ---
pt brought to main ed from [facility] at this time. pt changed into hospital gown. pt reports having home med phenytoin in purse; med counted with pt at bedside med placed in pharmacy bag signed with pt. belongings sheet done with Nima RUSS. nsr on monitor. resp even and unlabored. pt reports pain improved with meds per sep. mom at bedside. call cohen within reach.
--- NOTE | 2023-07-12 06:32 | PC.NURSE ---
pt refusing tylenol/oxy PRN for back pain; requests morphine. Dr. Harlan johnson. nad. call cohen within reach.
[2023-07-12 07:48] VITALS: BP 104/62; PULSE 86; RESP 20; O2SAT 97
--- NOTE | 2023-07-12 07:52 | PC.NURSE ---
assumed care of this pt at 0700. pt a +o x3, vss. she reports 8/10 lower back pain and abdominal soreness that she relates to getting Lovenox shots in her belly. pt given po pain med, effectiveness pending. breakfast given, mother at bedside in recliner. no complaints at this time. plan of care remains the same.
--- NOTE | 2023-07-12 08:16 | PHA.MEDREC ---
Addendum entered by Alicia Medina [facility] 07/12/23 08:23: OF NOTE: patient is on celexa and prozac together, I made sure to mention to the patient that this is not typical but patient endorsed that their PCP wants them on this combination Original Note: Pharmacy Consult ? Medication Reconciliation Pharmacy has completed the medication reconciliation. OF NOTE: patient said she takes Dilantin QID but its prescribed TID, she also stated she splits all her 1 mg alprazolams in half and takes each half 6 x a day instead of taking 1 full tablet three times a day.
--- NOTE | 2023-07-12 11:02 | PM.DS ---
DS: Providers Provider Date of Service: 07/12/23 Date of admission: 07/12/23 01:24 Primary care physician: Jac Dueñas MD DS: Diagnosis Discharge Diagnosis (1) Embolism, pulmonary with infarction: Status: Acute DS: Summary Hospital Course Hospital Course: This is a 47-year-old female with pertinent history of seizure disorder, mood disorder who presents to the emergency department for evaluation of chest pain. Patient states she started having right-sided chest pain 3 weeks prior to presentation. It has been progressive and worse 1 day prior to presentation. No relieving factors. Worse with inspiration. She went to urgent care about 3 weeks ago and was diagnosed with bronchitis. No relief with inhalers. No similar complaints in the past. Patient states her dad had a history of blood clots in the legs and lungs. No personal history of blood clots. No recent travels, history of trauma. No personal history of malignancy. No fever, chills, nausea, vomiting, palpitations, shortness of breath, abdominal pain, changes in urinary or bowel habits. Endorses dry cough. Not on OCPs. In the emergency department, imaging with right-sided pulmonary embolus 47-year-old woman treated for chest pain secondary to acute right lower lobe pulmonary embolus. Patient had reported that she had bronchitis type symptoms for 2 weeks with cough and more sedentary than usual. Chest CT showed pulmonary embolus, non massive, was initially started on Lovenox, changed over to Eliquis. Plan for patient to continue Eliquis 10 mg twice a day for 7 days and 5 mg twice daily, she should also follow-up with Hematology for coagulopathy workup outpatient. COVID, flu and RSV negative. Plan is for patient discharge home. Seizure disorder. No seizure during hospitalization. On [facility]. Continue medications Time Attestation Discharge coordination time: Greater than 30 minutes Quality: Safe Use of Opioids Does Pt have an Active Cancer Diagnosis on the Problem List?: No Quality: Stroke Does the patient have a stroke diagnosis?: No Physical Exam Vital Signs: Vital Signs: Last Vital Signs Temp 97 F 07/11/23 23:43 Pulse 86 07/12/23 07:48 Resp 20 07/12/23 07:48 BP 104/62 07/12/23 07:48 Pulse Ox 97 07/12/23 07:48 O2 Del Method Room Air 07/12/23 07:48 BMI result Body Mass Index 24.9 Appearing in no acute distress head is normocephalic atraumatic eyes pupils are PERRLA sclera is anicteric mouth throat mucous membranes are intact and moist neck is supple no lymphadenopathy, no JVD noted lung sounds are clear to auscultation heart regular rate rhythm, clear S1, S2 positive bowel sounds, abdomen is soft, nontender neuro patient is alert x3, no focal deficits DS: Data Data Completed and Pending Labs on day of discharge: Laboratory Results - last 24 hr 07/11/23 07/11/23 07/11/23 22:25 23:11 23:50 WBC 13.4 H RBC 3.65 L Hgb 10.9 L Hct 32.6 L MCV 89.3 MCH 29.9 MCHC 33.4 RDW 14.3 Plt Count 301 MPV 8.8 L Immature Gran % (Auto) 0.4 Neut % (Auto) 78.1 H Lymph % (Auto) 14.2 L [place] % (Auto) 6.5 Eos % (Auto) 0.4 Baso % (Auto) 0.4 Lymph # (Auto) 1.9 [place] # (Auto) 0.9 Eos # (Auto) 0.1 Baso # (Auto) 0.1 Abs Immat Gran (auto) 0.06 H Absolute Neuts (auto) 10.5 H Absolute Nucleated RBC 0.000 Nucleated RBC % (auto) 0.0 PT 11.3 INR 0.9 APTT 30.5 D-Dimer High Sensitivty 320 Sodium 141 Potassium 3.8 Chloride 104 Carbon Dioxide 27 Anion Gap 14 BUN 11 Creatinine 0.81 Estim Creat Clear Calc 78.4 Estimated GFR > 60 Random Glucose 114 Lactic Acid 1.3 Calcium 9.5 Magnesium 1.9 Total Bilirubin 0.3 Direct Bilirubin 0.2 AST 12 ALT 7 Alkaline Phosphatase 121 H Troponin I High Sens < 2.7 B-Natriuretic Peptide < 10 Total Protein 6.8 Albumin 3.9 Beta HCG, Quant 6 Urine Color Yellow Urine Appearance Clear Urine pH >= 9.0 Ur Specific [place] 1.010 Urine Protein Negative Urine Glucose (UA) Negative Urine Ketones Negative Urine Blood Small (1+) H Urine Nitrite Negative Ur Leukocyte Esterase Negative Urine RBC 6-10 H Urine WBC 0-5 Ur Squamous Epith Cells 0-2 Urine Bacteria None Seen Hyaline Casts 0-2 Influenza Type A (PCR) NEGATIVE Influenza Type B (PCR) NEGATIVE RSV RNA Qual (PCR) NEGATIVE SARS-CoV-2 RNA (RT-PCR) NEGATIVE 07/12/23 05:50 WBC 10.5 RBC 3.22 L Hgb 9.6 L Hct 29.2 L MCV 90.7 MCH 29.8 MCHC 32.9 RDW 14.5 Plt Count 263 MPV 9.4 Immature Gran % (Auto) 0.5 H Neut % (Auto) 62.5 Lymph % (Auto) 28.1 [place] % (Auto) 7.4 Eos % (Auto) 1.0 Baso % (Auto) 0.5 Lymph # (Auto) 2.9 [place] # (Auto) 0.8 Eos # (Auto) 0.1 Baso # (Auto) 0.1 Abs Immat Gran (auto) 0.05 H Absolute Neuts (auto) 6.6 Absolute Nucleated RBC 0.000 Nucleated RBC % (auto) 0.0 PT INR APTT D-Dimer High Sensitivty Sodium 139 Potassium 3.9 Chloride 107 Carbon Dioxide 25 Anion Gap 11 L BUN 11 Creatinine 0.65 Estim Creat Clear Calc 97.7 Estimated GFR > 60 Random Glucose 80 Lactic Acid Calcium 8.2 L D Magnesium Total Bilirubin Direct Bilirubin AST ALT Alkaline Phosphatase Troponin I High Sens B-Natriuretic Peptide Total Protein Albumin Beta HCG, Quant Urine Color Urine Appearance Urine pH Ur Specific [place] Urine Protein Urine Glucose (UA) Urine Ketones Urine Blood Urine Nitrite Ur Leukocyte Esterase Urine RBC Urine WBC Ur Squamous Epith Cells Urine Bacteria Hyaline Casts Influenza Type A (PCR) Influenza Type B (PCR) RSV RNA Qual (PCR) SARS-CoV-2 RNA (RT-PCR) Discharge Plan Discharge Anticipated Discharge Date/Time: 07/12/23 10:37 Patient Disposition: Home, Self-Care Discharge Diagnosis: Pulmonary embolism Referrals: Jaja Berger MD [Physician] - 1 Week Jac Dueñas MD [Primary Care Provider] - 1 Week Discharge Medications: New Eliquis 5 mg Tablet 10 mg PO BID@1000,2200 Qty: 70 0RF Rx Instructions: Take 10mg BID for 7 days then 5 mg BID Continued ibuprofen 600 mg tablet 600 mg PO Q6H PRN (Reason: fever or pain) Qty: 30 0RF citalopram 40 mg tablet 40 mg PO DAILY alprazolam 1 mg tablet 1 mg PO 6XD Rx Instructions: patient reports cutting all 1 mg in half and taking 1 half six times a day @0700,0900,1200,1400, 1600, 1830 alprazolam 0.5 mg tablet 0.5 mg PO DAILY@0400 lorazepam 2 mg tablet 2 mg PO DAILY@1800 fluoxetine 10 mg capsule 15 mg PO DAILY phenytoin sodium extended 100 mg capsule 100 mg PO QID Rx Instructions: @0400, 0600, 1300, 1830 fluticasone propionate 50 mcg/actuation spray,suspension 2 spray intranasal DAILY albuterol sulfate [Ventolin HFA] 90 mcg/actuation Hfa Aerosol Inhaler 1 puff INHALATION Q4H PRN (Reason: Wheezing) Discharge Orders: Discharge Order (Routine); Ordered 07/12/23 Ordered By: Petrona Estevez Diet: Advance to usual diet Activity on Discharge: As tolerated Stand Alone Forms: Patient Portal Discharge page Care Plan Goals: Take medications as prescribed Health Concerns: Pulmonary embolism Plan of Treatment: Follow up with primary care provider as needed Follow up with hematology for further workup regarding pulmonary embolism Assessment: See discharge summary
== END 2023-07-12 12:29 | disposition home or self-care (01) ==
LOC: HO.ED 07-12 01:23 → HO.EDOVER 07-12 01:29
PROVIDERS: Admitting Provider Student in an Organized Health Care Education/Training Program; Emergency Provider Emergency Medicine; PCP Internal Medicine; Visit Provider Nurse Practitioner Acute Care
DX: I26.09 Other pulmonary embolism with acute cor pulmonale (principal); D72.828 Other elevated white blood cell count; G40.909 Epilepsy, unspecified, not intractable, without status epilepticus; F39 Unspecified mood [affective] disorder; R05.9 Cough, unspecified; R07.9 Chest pain, unspecified; R10.9 Unspecified abdominal pain; R07.1 Chest pain on breathing; R07.81 Pleurodynia; R06.00 Dyspnea, unspecified; Z20.822 Contact with and (suspected) exposure to COVID-19; Z20.828 Contact with and (suspected) exposure to other viral communicable diseases
CPT/HCPCS: 0241U; 36415; 71045; 71275; 80048; 80076; 81001; 83605; 83735; 83880; 84484; 84702; 85025; 85379; 85610; 85730; 87040; 93005; 96365; 96372; 96375; 96376; 99221; 99285; J0696; J1650; J1885; J2270; Q9967

== ENCOUNTER → 2023-07-11 22:52 | Outpatient (BNV) | payer MEDICARE, MEDICAID, SELFPAY | PROVIDERS: Admitting Provider Student in an Organized Health Care Education/Training Program; Emergency Provider Emergency Medicine; PCP Internal Medicine; Visit Provider Internal Medicine Cardiovascular Disease | DX: I26.99 Other pulmonary embolism without acute cor pulmonale (principal); R06.02 Shortness of breath | CPT/HCPCS: 93010 ==

== ENCOUNTER → 2023-07-12 01:24 | Outpatient (BNV) | payer MEDICARE, MEDICAID, SELFPAY | PROVIDERS: Admitting Provider Student in an Organized Health Care Education/Training Program; Emergency Provider Emergency Medicine; PCP Internal Medicine; Visit Provider Student in an Organized Health Care Education/Training Program | DX: I26.99 Other pulmonary embolism without acute cor pulmonale (principal) | CPT/HCPCS: 99235; 99499 ==

== ENCOUNTER → 2023-07-30 15:00 | Outpatient (BNV) | payer MEDICARE, MEDICAID, SELFPAY | PROVIDERS: PCP Internal Medicine; Visit Provider Internal Medicine | DX: I26.99 Other pulmonary embolism without acute cor pulmonale (principal); Z79.01 Long term (current) use of anticoagulants | CPT/HCPCS: 99204; 99213 ==

== ENCOUNTER 2024-03-30 09:38 | Emergency (ER) | payer MEDICARE, MEDICAID, SELFPAY ==
--- NOTE | ~2024-03-30 | XR_ITS ---
EXAMINATION: XR CHEST CLINICAL INFORMATION: Back and shoulder pain COMPARISON: 07/11/2023 TECHNIQUE: 2 views of the chest were obtained. FINDINGS: Lungs clear. No pleural effusions. Heart and pulmonary vessels are normal. Neural stimulating device overlies the left chest and left neck. Metallic radiodensity overlies the thoracic inlet as seen on the prior study. XR/XR chest 2V IMPRESSION: Unremarkable examination. Electronically signed by: Vicente Hernandez MD 03/30/2024 11:51 AM EDT
--- NOTE | ~2024-03-30 | CT_ITS ---
EXAMINATION: CT HEAD WITHOUT CONTRAST CLINICAL INFORMATION: Dizziness and difficulty walking COMPARISON: 12/23/2021. TECHNIQUE: Contiguous axial imaging was performed from the skull base to vertex without intravenous administration of contrast. This CT examination was performed using dose optimization techniques as appropriate, variously including the following: *Automated exposure control *Adjustment of mA and/or kV according to patient size (this includes techniques or standardized protocols for targeted exams where dose is matched to indication/reason for exam; i.e. extremities or head) *Use of iterative reconstruction technique DLP: 645 mGy-cm FINDINGS: There is prominence to the sulci and ventricles with mild deep white matter gliosis, which appears more conspicuous today than on 01/22/2022. However, no intra or extra-axial fluid collection or hemorrhage, mass or mass effect. Calvarium is intact. There is mild mucoperiosteal thickening in the left frontal sinus extending to the left ethmoid sinus. CT/CT head/brain wo IV con IMPRESSION: Involutional changes more than one would expect for a patient of this age. Consideration should be given to an MRI. Electronically signed by: Vicente Hernandez MD 03/30/2024 01:38 PM EDT
[2024-03-30 09:47] VITALS: BP 110/69; PULSE 83; RESP 16; TEMP 36.8; O2SAT 100; BMI 27.8
--- NOTE | 2024-03-30 09:52 | ECG_ITS ---
Test Reason : neuro symtoms Blood Pressure : / mmHG Vent. Rate : 073 BPM Atrial Rate : 073 BPM P-R Int : 130 ms QRS Dur : 080 ms QT Int : 412 ms P-R-T Axes : 037 068 059 degrees QTc Int : 453 ms Normal sinus rhythm Normal ECG When compared with ECG of 11-JUL-2023 23:01, No significant change was found Referred By: Generic ED Physician Electronically Signed By:RADHA MOREIRA
[2024-03-30 10:26] LABS: MANUAL DIFF FLAG NO
[2024-03-30 10:39] LABS: Basophils Absolute Auto 0.1 X10*3/uL (0.0-0.2); Basophils Percent Auto 0.7 % (0-2); Eosinophils Absolute Auto 0.1 X10*3/uL (0.0-0.4); Eosinophils Percent Auto 1.1 % (0-4); Hematocrit 35.1 % (37.0-47.0); Imm Gran Abs Auto 0.04 X10*3/uL (0.00-0.03); Imm Gran Pct Auto 0.4 % (0.0-0.4); Lymphocytes Absolute Auto 2.9 X10*3/uL (1.2-4.9); Lymphocytes Percent Auto 27.6 % (20-40); Mean Corpuscular HGB Conc 34.2 g/dl (31.0-35.0); Mean Corpuscular Hemoglobin 30.8 pg (27.0-33.0); Mean Platelet Volume 8.9 fL (9.4-12.3); Monocytes Absolute Auto 0.5 X10*3/uL (0.1-1.2); Monocytes Percent Auto 4.9 % (2-11); Neutrophils Absolute Auto 6.8 x10*3/uL (2.0-8.3); Neutrophils Percent Auto 65.3 % (45-73); Platelet Count 279 X10*3/uL (160-400); Prothrombin Time 23.4 SEC (10.9-12.4); Red Cell Distribution Width 14.6 % (11.0-16.0); White Blood Count 10.4 X10*3/uL (4.8-10.8)
[2024-03-30 10:41] LABS: Alanine Aminotransferase 8 U/L (0-31); Albumin Level 3.8 g/dL (3.5-5.0); Alkaline Phosphatase 119 U/L (39-117); Anion Gap 10 (12-20); Aspartate Amino Transferase 13 U/L (5-31); Bilirubin Total 0.3 mg/dL (0.0-1.0); Blood Urea Nitrogen 13 mg/dL (9-16); Calcium 8.8 mg/dL (8.4-10.2); Carbon Dioxide 28 mmol/L (22-29); Chloride 107 mmol/L (96-108); Creatinine Clr Calc Pharmacy 91.8; Estimated Glomerular Filt Rate > 60; Glucose Random 89 mg/dL (60-115); Potassium 4.3 mmol/L (3.3-5.1); Sodium 141 mmol/L (135-145); Total Protein 6.5 g/dL (6.5-8.0)
[2024-03-30 10:46] VITALS: BP 137/72; PULSE 77; RESP 14; TEMP 36.4; O2SAT 98
[2024-03-30 10:49] LABS: Troponin-I High Sensitivity 3.1 ng/L (<3.5-17.0)
--- NOTE | 2024-03-30 12:06 | ED_ITS ---
HPI - Neuro Symptoms/Deficit General Chief Complaint: Neuro Symptoms/Deficit Stated Complaint: Blurry vision, L shoulder/back pain Time Seen by Provider: 03/30/24 12:06 History of Present Illness ED Provider: Seferino PINEDA Narrative: The patient is a 48-year-old female with a history of a pulmonary embolism who is on warfarin. She says that she is not able to take DOACs because they interfere with her antiepileptic medications. She went to her regular doctor's office today because she has been having pain in the region of her posterior left shoulder that radiates down her left back both in the left posterior thorax on the left lower back. The pain has been present for over a month and is worse with movements. Sometimes it is severe she says. She does not think she had any injury. She also says that for about the last week and a half she has been having episodes of lightheadedness and dizziness. Her last significant episode was 2 days ago on Friday. She gets episodes of dizziness associated with blurred vision, fatigue and shaking as. The episodes can last about 10 minutes. Over the past month her INRs have been somewhat labile. On February 24 her INR was 7.3 Although it was 1.82 days later. Her INR was 4.0 yesterday. The patient was seen at a primary care doctor's office this morning and mentioned these symptoms and the PCP felt the patient should be evaluated at the emergency department. Patient has not had any significant headache. No definite chest pain other than the left-sided posterior thoracic pain. She does not feel like she has symptoms consistent with her pulmonary embolism. No nausea or vomiting. No fever, sweats, chills. No pain or swelling in her legs. Patient says that she has been told that she should be on lifelong anticoagulation because her pulmonary embolism was unprovoked. The patient is a smoker. Related Data Home Medications ?Medication ?Instructions ?Recorded ?Confirmed albuterol sulfate 90 mcg/actuation 1 puff inhalation Q4H PRN Wheezing 07/12/23 10/13/23 aerosol inhaler (Ventolin HFA) alprazolam 0.5 mg tablet 0.5 mg PO DAILY@0400 07/12/23 10/13/23 alprazolam 1 mg tablet 1 mg PO 6XD 07/12/23 10/13/23 citalopram 40 mg tablet 40 mg PO DAILY 07/12/23 10/13/23 fluoxetine 10 mg capsule 15 mg PO DAILY 07/12/23 10/13/23 fluticasone propionate 50 2 spray intranasal DAILY 07/12/23 10/13/23 mcg/actuation nasal spray,suspension lorazepam 2 mg tablet 2 mg PO DAILY@1800 07/12/23 10/13/23 phenytoin sodium extended 100 mg 100 mg PO QID 07/12/23 10/13/23 capsule Previous Rx's ?Medication ?Instructions ?Recorded cyanocobalamin (vitamin B-12) 1,000 mcg PO DAILY #90 tabs 08/01/23 1,000 mcg tablet (Vitamin B-12) folic acid 0.8 mg capsule 0.8 mg PO DAILY #90 caps 08/01/23 warfarin 5 mg tablet 5 mg PO DAILY #30 tabs 08/01/23 Allergies Allergy/AdvReac Type Severity Reaction Status Date / Time ciprofloxacin [From [facility]RO] Allergy Unknown UNKNOWN Verified 03/30/24 09:50 From CIPRO Allergy Unknown UNKNOWN Uncoded 10/13/23 15:13 Review of Systems 2 Review of Systems: Yes all other systems are reviewed and are negative [facility] Past Medical History Medical History (Updated 03/30/24 @ 13:57 by Neto Gentile MD) Mood disorder Grand mal seizure Surgical History S/P removal of right ovary S/P removal of left ovary Family History Family History Maternal Grandmother Breast CA Maternal Aunt Lung cancer Father Prostate CA Social History Social History Household Members: Spouse Alcohol intake: never Patient Tobacco Use Status: Current everyday Tobacco user Smoked in Last 30 Days: Yes Use of substances other than those prescribed or required for medical reasons: No Advance Directives: No Advance Directives Information Provided: No Patient : No service: No Current occupational status: disabled Physical Exam 2 Vital Signs: Vital Signs: Last Vital Signs Temp 97.5 F 03/30/24 14:05 Pulse 77 03/30/24 14:05 Resp 14 03/30/24 14:05 BP 137/72 03/30/24 14:05 Pulse Ox 98 03/30/24 14:05 O2 Del Method Room Air 03/30/24 14:05 BMI result Body Mass Index 27.8 Const: Other: The patient is a 48-year-old woman who looks older than her age but who does not appear in acute distress. She is pleasant cooperative. HEENT: Other: the face is symmetrical. Mucous membranes are moist. Tongue is midline. Posterior pharynx is unremarkable. Eyes: Other: Pupils are round equal. Extraocular movements are intact. No nystagmus. Conjunctivae are clear. Neck: Other: The neck is supple. No cervical adenopathy. Resp: Effort & Inspection: normal respiratory effort Auscultation: clear to auscultation bilaterally Cardio: Rate: regular rate Rhythm: regular rhythm Heart sounds: S1 normal heart sound present and S2 normal heart sound present GI: Other: The abdomen is soft and nontender Back/Spine/Pelvis: Other: The patient seems to have a lot of muscular tenderness in the left posterior thorax near the scapula and also in the left lower back. Skin: Other: skin is dry and unremarkable. Neuro: Other: The patient is awake and alert with normal mental status and normal level of consciousness. Pupils are round equal, extraocular movements are intact, no nystagmus. face is symmetrical. Speech is clear without aphasia or dysarthria. She has symmetrical strength in the extremities. There is no pronator drift. Finger-nose is normal. She seemed very mildly unsteady when she changed position to a standing position but ultimately she seemed to walk fairly steadily although slowly. No broad-based gait. No ataxia. Medical Decision Making Medical Decision Making [facility] Narrative: the patient is a 48-year-old woman with a history of a seizure disorder. She also has a history of a pulmonary embolism and is on warfarin. She has had left-sided back pain that extends from her left shoulder down the left side of the back to the left lower back for over a month. On physical exam this seems to be muscular pain. She also describes almost daily episodes of dizziness and lightheadedness associated with blurry vision and nausea for about a week. Clinically she does not appear obviously acutely ill to me. Her vital signs are all unremarkable. She has an essentially normal EKG which is unchanged from previous EKGs. Labs are unremarkable and show a normal white count and differential. She is mildly anemic but less anemic than she usually has been when her blood has been tested. Her INR is therapeutic at 2.0. Her comprehensive metabolic panel is unremarkable. Overall my suspicion for a particularly dangerous process in this patient is clinically very low. I think her back pain is musculoskeletal. I do not have a good explanation for the episodes of dizziness and lightheadedness she has been experiencing but these episodes do not really sound like a stroke or any other kind of vascular emergency to me. The patient also did not seem to think that she was having any kind of an acute emergency. I think the patient may be discharged. She should resume her normal warfarin scheduling. She has a neurologist and I think who be good for her to follow-up with her neurologist. If acutely worse she should return to the emergency room. Lab Data 03/30/24 10:21 03/30/24 10:21 Labs: Lab Results 03/30/24 Range/Units 10:21 WBC 10.4 (4.8-10.8) X10*3/uL RBC 3.90 L (4.20-5.50) X10*6/uL Hgb 12.0 (12.0-16.0) g/dl Hct 35.1 L (37.0-47.0) % MCV 90.0 (80.0-98.0) fL MCH 30.8 (27.0-33.0) pg MCHC 34.2 (31.0-35.0) g/dl RDW 14.6 (11.0-16.0) % Plt Count 279 (160-400) X10*3/uL MPV 8.9 L (9.4-12.3) fL Immature Gran % (Auto) 0.4 (0.0-0.4) % Neut % (Auto) 65.3 (45-73) % Lymph % (Auto) 27.6 (20-40) % Overton % (Auto) 4.9 (2-11) % Eos % (Auto) 1.1 (0-4) % Baso % (Auto) 0.7 (0-2) % Lymph # (Auto) 2.9 (1.2-4.9) X10*3/uL Overton # (Auto) 0.5 (0.1-1.2) X10*3/uL Eos # (Auto) 0.1 (0.0-0.4) X10*3/uL Baso # (Auto) 0.1 (0.0-0.2) X10*3/uL Abs Immat Gran (auto) 0.04 H (0.00-0.03) X10*3/uL Absolute Neuts (auto) 6.8 (2.0-8.3) x10*3/uL Absolute Nucleated RBC 0.000 (0.0-0.012) X10*3/uL Nucleated RBC % (auto) 0.0 (0.0-0.2) /100WBC PT 23.4 H (10.9-12.4) SEC INR 2.0 H (0.9-1.1) Sodium 141 (135-145) mmol/L Potassium 4.3 (3.3-5.1) mmol/L Chloride 107 (96-108) mmol/L Carbon Dioxide 28 (22-29) mmol/L Anion Gap 10 L (12-20) BUN 13 (9-16) mg/dL Creatinine 0.72 (0.5-1.4) mg/dL Estim Creat Clear Calc 91.8 Estimated GFR > 60 Random Glucose 89 (60-115) mg/dL Calcium 8.8 D (8.4-10.2) mg/dL Total Bilirubin 0.3 (0.0-1.0) mg/dL AST 13 (5-31) U/L ALT 8 (0-31) U/L Alkaline Phosphatase 119 H (39-117) U/L Troponin I High Sens 3.1 (<3.5-17.0) ng/L Total Protein 6.5 (6.5-8.0) g/dL Albumin 3.8 (3.5-5.0) g/dL Independent Interpretation I performed an independent interpretation of an: EKG Interpretation: EKG at 10:09 shows normal sinus rhythm at 73 beats per minute. No acute ischemic changes. No significant change from previous EKGs. Discharge Plan Discharge Clinical Impression: Dizziness, Left-sided back pain Patient Disposition: Home, Self-Care Additional Instructions: Your testing in the emergency room today seems reassuring. With regard to your warfarin dosing your INR today is 2.0 so it was appropriate for to resume your warfarin dosing. Please stay in touch with the whoever supervise his your warfarin dosing for additional advice going forward. Please contact your neurologist to make an appointment to discuss the episodes of dizziness. Please follow up with your regular doctor's office as well. Continue Tylenol as needed for your left-sided pain which I think is muscular pain. Return to the emergency room if you feel significantly worse. Prescriptions: No Action warfarin 5 mg tablet 5 mg PO DAILY Qty: 30 0RF folic acid 0.8 mg Capsule 0.8 mg PO DAILY Qty: 90 1RF cyanocobalamin (vitamin B-12) [Vitamin B-12] 1,000 mcg Tablet 1,000 mcg PO DAILY Qty: 90 1RF citalopram 40 mg tablet 40 mg PO DAILY alprazolam 1 mg tablet 1 mg PO 6XD Rx Instructions: patient reports cutting all 1 mg in half and taking 1 half six times a day @0700,0900,1200,1400, 1600, 1830 alprazolam 0.5 mg tablet 0.5 mg PO DAILY@0400 lorazepam 2 mg tablet 2 mg PO DAILY@1800 fluoxetine 10 mg capsule 15 mg PO DAILY phenytoin sodium extended 100 mg capsule 100 mg PO QID Rx Instructions: @0400, 0600, 1300, 1830 fluticasone propionate 50 mcg/actuation spray,suspension 2 spray intranasal DAILY albuterol sulfate [Ventolin HFA] 90 mcg/actuation Hfa Aerosol Inhaler 1 puff INHALATION Q4H PRN (Reason: Wheezing) Referrals: Kaylin Jiménez MD [Physician] - (episodes of dizziness) Jac Dueñas MD [Primary Care Provider] - (Left-sided back pain, episodes of dizziness) Interventions: ED Discharge Assessment Last Done: 03/30/24 14:05 Discharge Date/Time: 03/30/24 14:07 Print Language: Russian
[2024-03-30 14:05] VITALS: BP 137/72; PULSE 77; RESP 14; TEMP 36.4; O2SAT 98
== END 2024-03-30 14:07 | disposition home or self-care (01) ==
PROVIDERS: Emergency Provider Emergency Medicine; PCP Internal Medicine
DX: R42 Dizziness and giddiness (principal); H53.8 Other visual disturbances; M54.50 Low back pain, unspecified; Z86.711 Personal history of pulmonary embolism; Z79.01 Long term (current) use of anticoagulants; Z79.899 Other long term (current) drug therapy
CPT/HCPCS: 36415; 70450; 71046; 80053; 84484; 85025; 85610; 93005; 99284; 99285

== ENCOUNTER 2025-01-19 09:06 | Outpatient (AMB) | payer MEDICARE, MEDICAID, SELFPAY ==
--- OUTSIDE RECORDS SUMMARY | 2025-01-19 09:22 | XMS_ITS | Clinical Summary ---
Author Organization [facility] [address] [place] [address] Address [address] [place] [address] Phone Care Team Providers Care Hand Iii Cutter Name Role Phone Jac Dueñas MD Primary Care Provider [phone] Allergies Active Allergy Reactions Criticality Noted Date Comments Ciprofloxacin Rash 08/14/2006 dizzy and nausea Ciprofloxacin Hcl 06/11/2024 Famotidine 01/07/2024 Other Reaction(s): dizzy,lightheaded, Famotidine allergy Other reaction(s): dizzy,lightheaded, Famotidine allergy Medications acetaminophen (TYLENOL) 325 mg capsule OTC Active ALPRAZolam (XANAX) 1 mg tablet Take 1 tablet (1 mg total) by mouth 3 (three) times a day if needed for anxiety. Take in the day time only Prescribed by neurologist Active citalopram (CeleXA) 40 mg tablet Take 1 tablet (40 mg total) by mouth 1 (one) time each day. Patient by neurologist Active phenytoin sodium extended (DILANTIN ORAL) Take 100 mg by mouth 3 (three) times a day. 300 mg morning and 400 mg in the afternoon and 300 mg in the evening Prescribe by neurologist Active FLUoxetine (PROzac) 10 mg tablet Take 1.5 tablets (15 mg total) by mouth 1 (one) time each day. Prescribed by neurologist Active folic acid (FOLVITE) 800 mcg tablet 0 Refills, Maintenance, 09/03/23 10:38:00 EST, Partial fill upon patient request if the prescription is for a schedule II opioid drug. 09/03/19 24 Active LORazepam (ATIVAN) 2 mg tablet Take 1 tablet (2 mg total) by mouth 1 (one) time each day. Patient takes at bedtime Prescribed by Neurologist Active omeprazole (PriLOSEC) [address] capsule TAKE 1 CAPSULE BY MOUTH TWICE DAILY BEFORE MEALS 180 capsule 1 09/10/19 25 Active fluticasone propionate (FLONASE) 50 mcg/actuation nasal spray USE 1 SPRAY IN EACH NOSTRIL EVERY DAY 48 g 1 10/08/19 25 Active diclofenac (VOLTAREN) 1 % topical gel Apply 2 gram four times daily to affected joint 100 g 12/21/19 25 Active warfarin (COUMADIN) 5 mg tablet TAKE 1 TO 1.5 TABLETS(5 TO 7.5 MG) BY MOUTH 1 TIME EACH DAY 60 tablet 01/06/20 25 Active warfarin (COUMADIN) 5 mg tablet Take 1-1.5 tablets (5-7.5 mg total) by mouth 1 (one) time each day. 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 Final recommendations still pending from GI Mild concentric left ventricular hypertrophy (LV H) 09/16/2023 Right ovarian cyst 03/28/2017 Tobacco use disorder 07/11/2006 Iron deficiency anemia 07/02/2005 Overview (06/11/2024): S/p hysterectomy Irritable bowel syndrome 07/02/2005 Migraine without aura 07/02/2005 Overview (06/11/2024): IMO update Paroxysmal supraventricular tachycardia (CMS/HCC V24) 07/02/2005 Convulsions (CMS/HCC V24, CMS/HCC V28) 5 Overview (06/11/2024): s/p stimulator placement at [facility], followed by Dr. Jiménez Encounters Date Type Department Care Team Description 01/05/2025 9:45 AM EDT Anticoagulation - Warfarin Visit Coumadin [address] [phone] Pulmonary embolism, unspecified chronicity, unspecified pulmonary embolism type, unspecified whether acute cor pulmonale present (CMS/HCC V24, CMS/HCC V28) (Primary Dx); residential (current) use of anticoagulants 12/20/2024 11:00 AM EDT Office Visit [address] [phone] Rome Velazquez, [employer] Carpal tunnel syndrome of right wrist (Primary Dx); Right wrist pain; Pulmonary embolism, unspecified chronicity, unspecified pulmonary embolism type, unspecified whether acute cor pulmonale present (CMS/HCC V24, CMS/HCC V28); Seizure (CMS/HCC V24, CMS/HCC V28); Anxiety and depression; Gastroesophageal reflux disease without esophagitis; Need for hepatitis C screening test; Encounter for screening mammogram for malignant neoplasm of breast; Encounter for screening for cardiovascular disorders 12/20/[address] [phone] Rome Velazquez, [employer] Labs Only (Elevated Alk Phose ) 12/15/2024 9:45 AM EDT Anticoagulation - Warfarin Visit Coumadin [address] [phone] Pulmonary embolism, unspecified chronicity, unspecified pulmonary embolism type, unspecified whether acute cor pulmonale present (CMS/HCC V24, CMS/HCC V28) (Primary Dx); 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 12/08/2024 9:00 AM EDT Anticoagulation - Warfarin Visit Coum[address] [phone] Pulmonary embolism, unspecified chronicity, unspecified pulmonary embolism type, unspecified whether acute cor pulmonale present (CMS/HCC V24, CMS/HCC V28) (Primary Dx); 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 11/12/2024 11:45 AM EDT Anticoagulation - Warfarin Visit Coumadin [address] [phone] Pulmonary embolism, unspecified chronicity, unspecified pulmonary embolism type, unspecified whether acute cor pulmonale present ([facility] V24, [facility] V28) (Primary Dx); 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 11/04/2024 1:30 PM EDT Anticoagulation - Warfarin Visit Coumadin [address] [phone] Ramila Monte LPN Pulmonary embolism, unspecified chronicity, unspecified pulmonary embolism type, unspecified whether acute cor pulmonale present ([facility] V24, [facility] V28) (Primary Dx); 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 10/26/2024 11:45 AM EDT Anticoagulation - Warfarin Visit Coumadin [address] [phone] Ramila Monte LPN Pulmonary embolism, unspecified chronicity, unspecified pulmonary embolism type, unspecified whether acute cor pulmonale present ([facility] V24, [facility] V28) (Primary Dx); residential (current) use of anticoagulants from Last 3 Months Immunizations Name Administration Dates Next Due Tdap Tetanus diptheria acell ular pertussis (Boostrix; Adacel) 7yo and older 12/06/2008 Surgical History Surgery Date Site/Laterality Comments HYSTERECTOMY 05/14/2005 PROCEDURE: HISTORICAL HYSTERECTOMY; COMMENT: [facility] Pastrana), endometriosis excised SALPINGOOPHORECTOMY Right PROCEDURE: TX LAPAROSCOPY W/RMVL ADNEXAL STRUCTURES; COMMENT: cysteadenoma benign OTHER SURGICAL HISTORY PROCEDURE: NERVE STIMULATOR FOR TX [place] Medical History Medical History Date Comments Migraine without aura, witho ut mention of intractable migraine without mention of status migrainosus 07/02/2005 DX:Migraine with out aura, without mention of intractable migraine without mention of status migrainosus Irritable bowel syndrome 07/02/2005 DX:Irri table bowel syndrome Paroxysmal supraventricular tachycardia ([facility] V24) 07/02/2005 DX:Paroxysmal supraventricul ar tachycardia (HCC) Iron deficiency anemia, unspecified 07/02/2005 DX:Iron deficiency anemia, unspecified Endometriosis of pelvic peritoneum 05/14/2005 DX:Endometriosis of pelvic peritoneum; COMMENT: S/P hysterectomy, ovaries conserved Other convulsions 07/02/2005 DX:Other convu lsions Paroxysmal supraventricular tachycardia (CMS/HCC V24) 07/02/2005 DX:Paroxysmal supraventricul ar tachycardia (HCC) Convulsions, unspecified con vulsion type (CMS/HCC V24, CMS/HCC V28) 07/02/2005 DX:Convulsions, unspec ified convulsion type (HCC); COMMENT: s/p stimulator placement at [facility], followed by Dr. Jiménez Family History Medical History Relation Name Comments Lung cancer Aunt No Known Problems Brother Other: a fib Father DM, Breast cancer Maternal Grandmother Diabetes Maternal Grandmother Diabetes Mother Blindness Neg Hx Cataracts Neg Hx Glaucoma Neg Hx Macular degeneration Neg Hx Strabismus Neg Hx Relation Name Status Comments Aunt Alive Brother Alive Father Alive Maternal Grandmother Mother Alive Social History Tobacco Use Types Packs/Day Years Used Date Smoking Tobacco: Every Day Cigarettes Smokeless Tobacco: Never Alcohol Use Standard Drinks/Week Comments No 0 (1 standard drink = 0.6 oz pur e alcohol) Comments Unknown Sex and Gender Information Value Date Recorded Sex Assigned at Not on file Legal Sex Female 3:22 AM EST Gender Identity Female 08/09/2023 6:27 AM EST Sexual Orientation Straight 08/09/2023 6: 27 AM EST Obstetrics History Last Filed Vital Signs Vital Sign Reading Time Taken Comments Blood Pressure 108/77 12/20/2024 9:41 AM EDT Pulse 97 12/20/2024 9:41 AM EDT Temperature 35.8 C (96.4 F) 12/20/2024 9:41 AM EDT Respiratory Rate 16 12/20/2024 9:41 AM EDT Oxygen Saturation 98% 12/20/2024 9:41 AM EDT Inhaled Oxygen Concentration - - Weight 80.1 kg (176 lb 9.6 oz) 12/20/2024 9:41 A M EDT Height 162.6 cm (5' 4 ) 12/20/2024 9:41 AM EDT Body Mass Index 30.31 12/20/2024 9:41 AM EDT Plan of Treatment Upcoming Encounters Date Type Department Care Team (Late st Contact Info) Description 01/20/2025 11:45 AM EDT Anticoagulation - Warfarin Visit [facility] [place] [address] [place] [phone] 02/02/2025 11:30 AM EDT Consult Orthopedic Surgery - [place] [address] [facility] [address] [place] [phone] Kayla Medina PA [address] [facility] [address] [place] [phone] 06/21/2025 9:00 AM EST Office Visit Adult Medicine [facility] [address] [place] [phone] Jac Dueñas MD [address] [place] [address] Health Maintenance Due Date Last Done Comments Breast Cancer Screening 1975 Cervical Cancer Screening: Pap Smear 12/05/2009 12/05/2008 Medicare Annual Wellness Visit 06/13/2022 Social Influencers of Health Screening 06/13/2022 Influenza Vaccine (#1) 2025 Depression Screening 12/20/2025 12/20/2024 Cholesterol Screening (Lipid Panel) 12/20/2029 12/20/2024, 03/04/2023 Colorectal Cancer Screening: Colonoscopy 04/21/2034 04/21/2024, 04/21/2024 DTaP,Tdap,and Td Vaccines Discontinued 12/06/2008 COVID-19 Vaccine Discontinued 12/20/2020, 11/29/2020 Hepatitis C Screening Completed 12/20/2024 HIB Vaccines Aged Out No longer eligi ble based on patient's age to complete this topic HIV Screening Discontinued HPV Vaccines Aged Out No longer eligi ble based on patient's age to complete this topic Hepatitis A Vaccines Aged Out No long er eligible based on patient's age to complete this topic Hepatitis B Vaccines Discontinued IPV Vaccines Aged Out No longer eligi ble based on patient's age to complete this topic MMR Vaccines Aged Out No longer eligi ble based on patient's age to complete this topic Meningococcal ACWY Vaccine Aged Out N o longer eligible based on patient's age to complete this topic Meningococcal B Vaccine Aged Out No l onger eligible based on patient's age to complete this topic Pneumococcal Vaccine: 50+ Years Discontinued RSV Immunization Patients Under 20 months Aged Out No longer eligible based on patient's age to complete this topic Varicella Vaccines Aged Out No longer eligible based on patient's age to complete this topic Zoster Vaccines Discontinued Procedures Procedure Name Priority Date/Time Associated Diagnosis Comments POC PROTIME INR BLOOD Routine 01/05/2025 Pulmonary embolism, unspecified chronicity, unspecified pulmonary embolism type, unspecified whether acute cor pulmonale present (CMS/HCC V24, CMS/HCC V28) 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 CBC WITH AUTO DIFFERENTIAL Routine 12/20/2024 10:48 AM EDT Carpal tunnel syndrome of right wrist Right wrist pain Need for hepatitis C screening test Encounter for screening mammogram for malignant neoplasm of breast Encounter for screening for cardiovascular disorders HEPATITIS C ANTIBODY Routine 12/20/2024 10:48 AM EDT Need for hepatitis C screening test LIPID PANEL WITH REFLEX TO DIRECT LDL Routine 12/20/2024 10:48 AM EDT Encounter for screening for cardiovascular disorders CBC AND DIFFERENTIAL Routine 12/20/2024 10:48 AM EDT Carpal tunnel syndrome of right wrist Right wrist pain Need for hepatitis C screening test Encounter for screening mammogram for malignant neoplasm of breast Encounter for screening for cardiovascular disorders THYROID STIMULATING HORMONE WITH REFLEX TO FREE T4 AND FREE T3 Routine 12/20/2024 10:48 AM EDT Carpal tunnel syndrome of right wrist Right wrist pain Need for hepatitis C screening test Encounter for screening mammogram for malignant neoplasm of breast Encounter for screening for cardiovascular disorders COMPREHENSIVE METABOLIC PANEL Routine 12/20/2024 10:48 AM EDT Carpal tunnel syndrome of right wrist Right wrist pain Need for hepatitis C screening test Encounter for screening mammogram for malignant neoplasm of breast Encounter for screening for cardiovascular disorders POC PROTIME INR BLOOD Routine 12/15/2024 Pulmonary embolism, unspecified chronicity, unspecified pulmonary embolism type, unspecified whether acute cor pulmonale present (CMS/HCC V24, CMS/HCC V28) residential (current) use of anticoagulants PROTHROMBIN TIME WITH INR Routine 12/08/2024 POC PROTIME INR BLOOD Routine 11/12/2024 Pulmonary embolism, unspecified chronicity, unspecified pulmonary embolism type, unspecified whether acute cor pulmonale present (CMS/HCC V24, CMS/HCC V28) residential (current) use of anticoagulants POC PROTIME INR BLOOD Routine 11/04/2024 Pulmonary embolism, unspecified chronicity, unspecified pulmonary embolism type, unspecified whether acute cor pulmonale present (CMS/HCC V24, CMS/HCC V28) residential (current) use of anticoagulants POC PROTIME INR BLOOD Routine 10/26/2024 Pulmonary embolism, unspecified chronicity, unspecified pulmonary embolism type, unspecified whether acute cor pulmonale present (CMS/HCC V24, CMS/HCC V28) 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 Lot Number INR POC 3.0 Prothrombin Time POC Exp Date Blood 01/05/2025 Cely Hawthorne MD POINT OF CARE TEST ENTER/EDIT ORDERABLES Final Result * Hepatitis C antibody (12/20/2024 10:48 AM EDT) Hepatitis C Antibody Negative Negative LAB CHEMISTRY METHOD 12/20/2024 5:58 PM EDT [facility] Blood Venous blood specimen / Unknown Venipuncture / Unknown 12/20/2024 10:48 AM EDT 12/20/2024 10:48 AM EDT Rome Velazquez [employer] LAB BLOOD ORDERABLES Final R esult Performing Organization Address [facility]/ZIP Co de Phone Number [facility] [address] [place] [address], [place] [phone] * Thyroid stimulating hormone with reflex to free t4 and free t3 (12/20/2024 10:48 AM EDT) TSH 0.97 0.40 - 4.00 mcIU/mL LAB CHEMISTRY METHOD 12/20/2024 5:18 PM EDT [facility] Blood Venous blood specimen / Unknown Venipuncture / Unknown 12/20/2024 10:48 AM EDT 12/20/2024 10:48 AM EDT Rome Velazquez [employer] LAB BLOOD ORDERABLES Final R esult Performing Organization Address [facility] Co de Phone Number [facility] [address] [place] [address], [place] [phone] * (ABNORMAL) Lipid panel with reflex to direct LDL (12/20/2024 10:48 AM EDT) Cholesterol 261(H) 0 - 200 mg/dL LAB CHEMISTRY METHOD 12/20/2024 4:52 PM EDT [facility] Triglycerides 249(H) 0 - 150 mg/dL LAB CHEMISTRY METHOD 12/20/2024 4:52 PM EDT [facility] HDL 73 >=40 mg/dL LAB CHEMISTRY METHOD 12/20/2024 4:52 PM EDT [facility] LDL Calculated 138(H) 0 - 100 mg/dL LAB CHEMISTRY METHOD 12/20/2024 4:52 PM EDT [facility] VLDL Cholesterol [place] 49.8 mg/dL LAB CHEMISTRY METHOD 12/20/2024 4:52 PM EDT [facility] Non HDL Chol. (LDL+VLDL) 188(H) <145 mg/dL LAB CHEMISTRY METHOD 12/20/2024 4:52 PM EDT [facility] Chol/HDL Ratio 3.6 0.0 - 4.4 LAB CHEMISTRY METHOD 12/20/2024 4:52 PM EDT [facility] Blood Venous blood specimen / Unknown Venipuncture / Unknown 12/20/2024 10:48 AM EDT 12/20/2024 10:48 AM EDT us Rome Velazquez [employer] LAB BLOOD ORDERABLES Final R esult [facility] [address] [place] [address], * (ABNORMAL) CBC auto differential (12/20/2024 10:48 AM EDT) WBC 9.7 4.8 - 10.8 K/mcL LAB HEMETOLOGY METHOD 12/20/2024 12:[address] [facility] RBC 3.80 3.80 - 4.80 M/mcL LAB HEMETOLOGY METHOD 12/20/2024 12:[address] [facility] Hemoglobin 11.3(L) 11.5 - 16.0 g/dL LAB HEMETOLOGY METHOD 12/20/2024 12:[address] [facility] Hematocrit 35.2 35.0 - 47.0 % LAB HEMETOLOGY METHOD 12/20/2024 12:[address] [facility] MCV 92.6 79.0 - 98.0 FL LAB HEMETOLOGY METHOD 12/20/2024 12:[address] [facility] MCH 29.7 27.0 - 32.0 pcg LAB HEMETOLOGY METHOD 12/20/2024 12:[address] [facility] MCHC 32.1 32.0 - 37.0 g/dL LAB HEMETOLOGY METHOD 12/20/2024 12:[address] [facility] RDW 15.0 11.0 - 15.0 % LAB HEMETOLOGY METHOD 12/20/2024 12:[address] [facility] Platelets 305 130 - 400 K/mcL LAB HEMETOLOGY METHOD 12/20/2024 12:[address] [facility] MPV 9.7 7.0 - 11.0 FL LAB HEMETOLOGY METHOD 12/20/2024 12:[address] [facility] NRBC 0.0 <1.0 % LAB HEMETOLOGY METHOD 12/20/2024 12:[address] [facility] NRBC Absolute 0.00 <0.10 K/mcL LAB HEMETOLOGY METHOD 12/20/2024 12:[address] [facility] Neutrophils Relative 52.0 % LAB HEMETOLOGY METHOD 12/20/2024 12:[address] [facility] Lymphocytes Relative 39.5 % LAB HEMETOLOGY METHOD 12/20/2024 12:[address] [facility] Monocytes Relative 6.0 % LAB HEMETOLOGY METHOD 12/20/2024 12:[address] [facility] Eosinophils Relative 1.4 % LAB HEMETOLOGY METHOD 12/20/2024 12:[address] [facility] Basophils Relative 0.7 % LAB HEMETOLOGY METHOD 12/20/2024 12:[address] [facility] Immature Granulocytes Relative 0.4 % LAB HEMETOLOGY METHOD 12/20/2024 12:[address] [facility] Neutrophils Absolute 5.03 1.50 - 7.00 K/mcL LAB HEMETOLOGY METHOD 12/20/2024 12:41 PM EDT [facility] Lymphocytes Absolute 3.83 1.00 - 5.00 K/mcL LAB HEMETOLOGY METHOD 12/20/2024 12:41 PM EDT [facility] Monocytes Absolute 0.58 0.20 - 1.00 K/mcL LAB HEMETOLOGY METHOD 12/20/2024 12:41 PM EDT [facility] Eosinophils Absolute 0.14 0.00 - 0.50 K/[facility] HEMETOLOGY METHOD 12/20/2024 12:41 PM EDT [facility] Basophils Absolute 0.07 0.00 - 0.20 K/[facility] HEMETOLOGY METHOD 12/20/2024 12:41 PM EDT [facility] Immature Granulocytes Absolute 0.04(H) 0.00 - 0.03 K/[facility] HEMETOLOGY METHOD 12/20/2024 12:41 PM EDT [facility] Blood Venous blood specimen / Unknown Venipuncture / Unknown 12/20/2024 10:48 AM EDT 12/20/2024 10:48 AM EDT us Rome Velazquez [employer] LAB BLOOD ORDERABLES Final R esult [facility] [address] [place] [address], * (ABNORMAL) Comprehensive metabolic panel (12/20/2024 10:48 AM EDT) Sodium 139 133 - 145 mmol/L LAB CHEMISTRY METHOD 12/20/2024 4:52 PM EDT [facility] Potassium 4.5 3.5 - 5.5 mmol/L LAB CHEMISTRY METHOD 12/20/2024 4:52 PM EDT [facility] Chloride 106 96 - 110 mmol/L LAB CHEMISTRY METHOD 12/20/2024 4:[address] [facility] CO2 30 21 - 32 mmol/L LAB CHEMISTRY METHOD 12/20/2024 4:[address] [facility] Anion Gap 3 3 - 11 LAB CHEMISTRY METHOD 12/20/2024 4:[address] [facility] Glucose 89 70 - 100 mg/dL LAB CHEMISTRY METHOD 12/20/2024 4:[address] [facility] BUN 12 5 - 25 mg/dL LAB CHEMISTRY METHOD 12/20/2024 4:[address] [facility] Creatinine 0.78 0.50 - 1.10 mg/dL LAB CHEMISTRY METHOD 12/20/2024 4:[address] [facility] eGFR 92 >=60 mL/min/1. 73m2 LAB CHEMISTRY METHOD 12/20/2024 4:[address] [facility] Comment:Calculation based on the Chronic Kidney Disease Epidemiology Collaboration (CKD-EPI) equation refit without adjustment for race. BUN/Creatinine Ratio 15.4 LAB CHEMISTRY METHOD 12/20/2024 4:[address] [facility] Calcium 8.7 8.5 - 10.5 mg/dL LAB CHEMISTRY METHOD 12/20/2024 4:[address] [facility] AST (SGOT) 20 10 - 42 unit/L LAB CHEMISTRY METHOD 12/20/2024 4:[address] [facility] ALT (SGPT) 20 10 - 60 unit/L LAB CHEMISTRY METHOD 12/20/2024 4:[address] [facility] Alkaline Phosphatase 155(H) 42 - 121 unit/L LAB CHEMISTRY METHOD 12/20/2024 4:[address] [facility] Total Protein 6.6 6.0 - 8.0 g/dL LAB CHEMISTRY METHOD 12/20/2024 4:[address] [facility] Albumin 3.4 3.2 - 5.0 g/dL LAB CHEMISTRY METHOD 12/20/2024 4:52 PM EDT [facility] Total Bilirubin 0.2 0.0 - 1.4 mg/dL LAB CHEMISTRY METHOD 12/20/2024 4:52 PM EDT [facility] Blood Venous blood specimen / Unknown Venipuncture / Unknown 12/20/2024 10:48 AM EDT 12/20/2024 10:48 AM EDT Rome Velazquez NP LAB BLOOD ORDERABLES Final R esult [facility] [address] [place] [address], * Prothrombin time with INR (12/08/2024) INR 1.8 Prothrombin Time POC Blood Venous blood specimen / Unknown 12/08/2024 Cely Hawthorne MD LAB BLOOD ORDERABL ES Final Result * Colonoscopy (04/21/2024) Colonoscopy abnormal, abstracted Anatomical Region Laterality Modality Other Historical Provider HEALTH MAINTENANCE Final Result * Pap Smear (12/05/2008) Pap smear no interpretation , abstracted Historical Provider HEALTH MAINTENANCE Final Result from Last 3 Months or Most Recently Relevant to Health Maintenance Insurance MEDICARE [place]ICA[place] - [place] Care Teams Hand Iii Cutter Relationship Specialty Start Date End Date Jac Dueñas MD [address] [place] [id number] PCP - General 05/06/1999
--- NOTE | 2025-01-19 09:23 | MHC.OFFVIS ---
Intake Visit Reasons: f/u for Seizures Allergies ciprofloxacin (From CIPRO) Allergy (Unknown, Verified 03/30/24 09:50) UNKNOWN From CIPRO Allergy (Unknown, Uncoded 10/13/23 15:13) UNKNOWN Medication List - Last Reconciled 01/19/25 by Kaylin Jiménez MD albuterol sulfate 90 mcg/actuation (Ventolin HFA) 1 puff inhalation Q4H PRN alprazolam 0.5 mg PO .7 Xd citalopram 40 mg PO DAILY fluoxetine 10 mg PO DAILY fluticasone propionate 50 mcg/actuation 2 sprays intranasal DAILY lorazepam 2 mg PO DAILY@1800 phenytoin sodium extended 100 mg orally TAKE 3 CAPSULES BY MOUTH EVERY MORNING, TAKE 4 CAPSULES IN THE AFTERNOON AND 3 CAPSULES EVERY EVENING; 30 days warfarin 5 mg PO DAILY HPI Comments Details: 49yr old woman with 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 For the first time she went 6 months with no Sz of any type till 2024 had 3-4 Sz with 1 GM Sz in sleep with tongue biting an dincontinence followed by 3 partial Sz. iIn April we reduced Alprazolam by 1/2 mg 9 from 3.5 to 3mg a day) and she had 7 GM Sz in 2 weeks.? She has since gone back on it at 3.5mg/ day. Also had a sz on 07/04/24. Medication reviewed and explaned to patient. She had a single GM sz 03/09/24 during sleep. VNS battery replaced 10/03/2023. Had aura sz 10/09/2023, 10/10/2023, and 10/12/2023. She gets a warning before this type, body starts to feel funny and goes numb. Partner says she stares into space for about 5 minutes. Afterwards, she is confused, tired, and sore. No triggers. Previous VNS battery changed in January 2021. She is still doing TAC 12%( Ultra Sour Chem OG Preroll) 1 drag tid. No longer driving as she had a GM Sz driving on 03/13/20 but daughter was able to control the car. She had multiple GM Sz at night. Briviact 100mg hs for 5 months ineffective. She has intractable epilepsy . [facility] Medical History (Updated 01/19/25 @ 09:31 by Kaylin Jiménez MD) Localization-related (focal) (partial) idiopathic epilepsy and epileptic syndromes with seizures of localized onset, intractable, without status epilepticus Panic attacks Seizures Partial epilepsy with impairment of consciousness, with intractable epilepsy Mood disorder Grand mal seizure Surgical History (Updated 01/17/25 @ 11:11 by Andree Blum MA) S/P placement of VNS (vagus nerve stimulation) device S/P removal of right ovary S/P removal of left ovary Family History Maternal Grandmother Breast CA Maternal Aunt Lung cancer Father Prostate CA Social History Household Members: Spouse Alcohol intake: never Patient Tobacco Use Status: Current everyday Tobacco user service: No Current occupational status: disabled Review of Systems Const Details: General/Constitutional:? Change in appetitedenies.? Fatiguedenies.? Feverdenies.? Weight gaindenies.? Weight lossdenies. ???Sleep:? Difficulty getting to sleepdenies.? Difficulty maintaining sleepdenies?.? Daytime sleepinessdenies. ???Respiratory:? Shortness of breathdenies.? Chest paindenies. ???Cardiovascular:? Chest pain at restdenies.? Chest pain with exertiondenies.? Dizzinessdenies.? Fluid accumulation in the legsdenies.? Irregular heartbeatdenies.? Palpitationsdenies. ???Gastrointestinal:? Constipationdenies.? Diarrheadenies.? Difficulty swallowingdenies.? Heartburndenies.? Nauseadenies. ???Genitourinary:? Frequent urinationdenies.? Urgencydenies.? Incontinencedenies. ???Musculoskeletal:? Neck paindenies.? Back paindenies.? Joint stiffnessdenies.? Sciaticadenies. ???Neurologic:? Difficulty swallowingdenies.? Balance difficultydenies.? Coordinationnormal.? Difficulty speakingdenies.? Dizzinessdenies.? Faintingdenies.? Gait abnormalitydenies.? Headachedenies.? Loss of strengthdenies.? Loss of use of extremitydenies.? Low back paindenies.? Memory lossdenies.? Seizuresadmits.? Ticsdenies.? Tingling/Numbnessdenies.? Transient loss of visiondenies.? Tremordenies. ???Psychiatric:? Anxietythat is severe.? Auditory/visual hallucinationsdenies.? Delusionsdenies.? Depressed moodadmits.? Stressorsboth at work and in family.? Suicidal thoughtsdenies. Physical Exam Neuro Other: Mini Mental Status Exam: Level of Consciousness:??Alert.?Orientation:??Knows correct year, month, date, day and season,?Knows correct city, county and state. Knows correct location and floor.?Registration:??Able to register 3 objects.?Attention:??Serial 7's performed accurately.?Recall:??Able to recall 3 out of 3 objects.?Language:??Normal spontaneous speech, fluency, repetition,naming, comprehension, reading and writing.?Total Score:??30/30.? Neurological: Abnormal neurological findings:??none.?Mental Status:??alert and oriented X 3,?Normal attention, orientation, memory and affect.?Cranial Nerves:??Pupils are equal, round and reactive to light. Fundoscopy shows normal disc bilaterally. External occular muscles are intact. Visual diggs are full, no ptosis. Face is symmetrical, no facial weakness or droop. Facial sensations are normal. Tongue protrudes in midline. Palate elevates symmetrically. Shoulder shrugging is normal..?Motor Examination:??Normal muscle tone, bulk and strength,?No atrophy or fasciculations,?No drift of the extended upper extremities,?Deep tendon reflexes are 2+?,?Plantars are flexor?.?Straight Leg Raising:??90 degrees.?Sensory Exam:??Normal light touch, temperature, pinprick, vibration and joint-position sensations?,?Rhomberg sign is absent.?Coordination:??no ataxia,?no titubation,?mrjycp-[id number]-hfpy, pipi-vqfk-wzbe test and rapid alternating movements were normal.?Gait Exam:??Within normal limits.?Cerebellar Signs:??Pbpxtf-bd-vxdc and abeo-ey-caim is normal,?no dysdiadochokinesia?.?Extrapyramidal System:??No tremor, rigidity with normal facial expressions,?No bradykinesia, no bradyphrenia. Normal arm swing and posture. No propulsion or retropulsion.?Speech:??Normal,?no dysphasia or dysarthria..? General Examination: GENERAL APPEARANCE:??normal,?in no acute distress.?HEART:??S1, S2 normal,?no murmurs.?LUNGS:??clear anteriorly and posteriorly.?MUSCULOSKELETAL:??normal.?EXTREMITIES:??no edema.?PSYCH:??alert, oriented,?cognitive function intact,?cooperative with exam.? Assessment & Plan Assessment & Plan (1) Partial epilepsy with impairment of consciousness, with intractable epilepsy: Code(s): G40.219 - Localization-related (focal) (partial) symptomatic epilepsy and epileptic syndromes with complex partial seizures, intractable, without status epilepticus Category: Medical Plan Continue current meds. VNS working Medications: Changed From lorazepam 2 mg PO DAILY@1800 To lorazepam 2 mg PO DAILY@1800 30 tabs 4RF 30 days Coding Level of Care Code Est Pt Level 4 (47496) Diagnoses Partial epilepsy with impairment of consciousness, with intractable epilepsy G40.219
== END 2025-01-19 09:46 | disposition home or self-care (01) ==
LOC: HO.HSM 09:07
PROVIDERS: PCP Internal Medicine; Visit Provider Psychiatry & Neurology Neurology
DX: G40.219 Localization-related (focal) (partial) symptomatic epilepsy and epileptic syndromes with complex partial seizures, intractable, without status epilepticus (principal)
CPT/HCPCS: 99214

== ENCOUNTER → 2025-01-19 09:06 | Outpatient (BNVA) | payer MEDICARE, MEDICAID, SELFPAY | PROVIDERS: PCP Internal Medicine; Visit Provider Psychiatry & Neurology Neurology | DX: G40.219 Localization-related (focal) (partial) symptomatic epilepsy and epileptic syndromes with complex partial seizures, intractable, without status epilepticus (principal) | CPT/HCPCS: 99212 ==

== ENCOUNTER 2025-02-28 19:15 | Emergency (ER) | payer MEDICARE, MEDICAID, SELFPAY ==
--- NOTE | ~2025-02-28 | CT_ITS ---
CLINICAL HISTORY: LLQ abd pain CT abdomen and pelvis with contrast Comparison: CT/SR - CT CHEST ANGIOGRAPHY WITH IV CONTRAST - 07/11/23 23:54 EST US/SR - US ABDOMEN LIMITED - 07/17/22 21:02 EST Findings: Bibasilar dependent atelectasis. The gallbladder is unremarkable. Stable 1 cm right adrenal lipoma. Other solid organs unremarkable. No renal stones. No bowel obstruction, pneumoperitoneum, or pneumatosis. Status post appendectomy. Status post TAHBSO. Urinary bladder unremarkable. The bones are intact. IMPRESSION: No acute findings. This document has been electronically signed by: Ga Odonnell MD on 02/28/2025 23:42:21
[2025-02-28 19:24] VITALS: BP 111/68; PULSE 82; RESP 18; TEMP 35.9; O2SAT 100; BMI 28.3
--- NOTE | 2025-02-28 19:26 | ED.GENADULT ---
HPI - General Adult General Chief complaint: Abdominal Pain Stated complaint: bad abd pain Time Seen by Provider: 02/28/25 22:12 Source: patient and family Mode of arrival: ambulatory Limitations: no limitations History of Present Illness ED Provider: Dr. Janene Krueger HPI narrative: 49-year-old female with history of seizure disorder, pulmonary embolism on warfarin presenting with generalized abdominal pain, nausea, vomiting and diarrhea ongoing for the last several hours today. Denies recent travel intake or known sick contacts. Potential for questionable fried chicken that she may have eaten yesterday but her ate the same chicken in his not sick. No hematemesis or hematochezia. No reported fever. Denies urine complaints. Denies chest pain or difficulty breathing. Had been feeling well prior to this. Only abdominal surgery is total hysterectomy. Related Data Home Medications ?Medication ?Instructions ?Recorded ?Confirmed albuterol sulfate 90 mcg/actuation 1 puff inhalation Q4H PRN Wheezing 07/12/23 01/19/25 aerosol inhaler (Ventolin HFA) citalopram 40 mg tablet 40 mg PO DAILY 07/12/23 01/19/25 fluticasone propionate 50 2 spray intranasal DAILY 07/12/23 01/19/25 mcg/actuation nasal spray,suspension alprazolam 1 mg tablet 0.5 mg PO .7 Xd 01/19/25 01/19/25 fluoxetine 10 mg capsule 10 mg PO DAILY 01/19/25 01/19/25 Previous Rx's ?Medication ?Instructions ?Recorded warfarin 5 mg tablet 5 mg PO DAILY #30 tabs 08/01/23 phenytoin sodium extended 100 mg 100 mg PO .COMPLEX 30 days #300 01/04/25 capsule caps lorazepam 2 mg tablet 2 mg PO DAILY@1800 30 days #30 tabs 01/19/25 dicyclomine 20 mg tablet 20 mg PO TID #10 tabs 03/01/25 ondansetron 4 mg disintegrating 4 mg PO Q8H PRN nausea and 03/01/25 tablet vomiting #10 tabs Allergies Allergy/AdvReac Type Severity Reaction Status Date / Time ciprofloxacin (From CIPRO) Allergy Unknown UNKNOWN Verified 02/28/25 19:27 From CIPRO Allergy Unknown UNKNOWN Uncoded 02/28/25 19:27 Review of Systems Review of Systems: As per HPI, full review of systems performed and negative but for the above mentioned pertinent positives and negatives. [facility] Past Medical History Medical History Localization-related (focal) (partial) idiopathic epilepsy and epileptic syndromes with seizures of localized onset, intractable, without status epilepticus Panic attacks Seizures Partial epilepsy with impairment of consciousness, with intractable epilepsy Mood disorder Grand mal seizure Surgical History S/P placement of VNS (vagus nerve stimulation) device S/P removal of right ovary S/P removal of left ovary Family History Family History Maternal Grandmother Breast CA Maternal Aunt Lung cancer Father Prostate CA Social History Social History Household Members: Spouse Alcohol intake: never Patient Tobacco Use Status: Current everyday Tobacco user service: No Current occupational status: disabled Physical Exam ED Exam Exam: GENERAL: Ill-Appearing, appears uncomfortable. SKIN: Normal skin color for ethnicity, warm, dry, no rashes noted. HEENT: Normocephalic, atraumatic, no stridor, dry mucous membranes, dentition intact, EOMI, PERRLA. NECK: Soft, supple, full ROM, midline structures nontender, no step-offs, no deformities, no lymphadenopathy. CHEST: Heart regular tachycardia, no murmurs, symmetric chest rise and fall. PULMONARY: Clear to auscultation bilaterally, diminished at the bases, no labored breathing, no wheezes/rhales/rhonchi. ABDOMINAL: Soft, nondistended, diffusely tender to palpation with voluntary guarding, no rebound tenderness, hyperactive bowel sounds in all quadrants. : Deferred. MUSCULOSKELETAL: Normal tone, full range of motion, no deformities, no peripheral edema. NEURO: Alert and oriented x3, CN II through XII intact, equal strength and sensation bilateral upper and lower extremities, no focal neurologic deficits. PSYCHIATRIC: Flat affect, fluid speech, good eye contact and appropriate demeanor. Vital Signs: Vital Signs - 24 hr 02/28/25 21:33 02/28/25 22:35 03/01/25 00:51 Temperature 98.3 F 98 F Pulse Rate 70 75 Respiratory Rate 16 16 16 Blood Pressure 124/73 109/70 Pulse Oximetry 100 99 Oxygen Delivery Method Room Air Room Air BMI result Body Mass Index 28.3 Course Course Course Narrative: Rapid medical examination performed in triage by Sadie Berman PA-C. Patient is a 49 year old assigned female at presenting to the emergency department with left sided abdominal pain. Detailed physical exam and review of systems are deferred to the substance abuse clinician. Labs ordered. Patient placed back in the waiting room pending room availability and results. Medications Administered Discontinued Medications Generic Name Dose Route Start Last Admin Trade Name Abiodun PRN Reason Stop Dose Admin Lactated Ringer's 1,000 mls @ 999 mls/hr 02/28/25 22:28 02/28/25 23:40 Lr IV 02/28/25 23:28 Infused .Q1H1M ONE Infusion Iohexol 100 ml 02/28/25 23:05 02/28/25 23:06 Iohexol 350 Mg/Ml 100 Ml Infus..Btl IV 02/28/25 23:06 85 ml ONCE ONE Administration Morphine Sulfate 4 mg 02/28/25 22:28 02/28/25 22:35 Morphine Sulfate 4 Mg/Ml Cartridge IVPUSH 02/28/25 22:29 4 mg ONCE ONE Administration Protocol Ondansetron HCl 4 mg 02/28/25 22:28 02/28/25 22:35 Ondansetron Hcl 4 Mg/2 Ml Vial IVPUSH 02/28/25 22:29 4 mg ONCE ONE Administration Medical Decision Making Medical Decision Making MDM Narrative: Patient presents today with a chief complaint of vomiting. Differential diagnosis includes surgical emergency such as obstruction or enteritis, as well as hyperglycemia, acidosis, food or drug ingestion, pancreatitis, CVA, allergic reaction such as anaphylaxis, cannabis hyperemesis syndrome or cyclic vomiting syndrome, among many others. Patient is not showing signs of acute dehydration or hemodynamic instability. They are having associated abdominal pain. Broad-based work-up was initiated based on above history and physical exam. CT does not show evidence of acute process. Suspect viral gastroenteritis. Discussed this with patient at length who is now feeling improved after medications for vomiting and IV fluids. Using shared decision making, plan for discharge home to follow-up with primary care and/or specialist. Patient understands and agrees with plan for discharge. Discharged home in stable condition. Differential Diagnosis Differential Diagnoses: The differential diagnosis associated with the presentation includes (As above) Admission/Observation Consideration of admission/observation: Escalation of care including admission/observation considered Lab Data MDM Lab Attestation statement: I reviewed the patient's lab results. 02/28/25 19:37 02/28/25 19:37 Labs: Lab Results 02/28/25 02/28/25 02/28/25 Range/Units 19:37 21:33 22:45 WBC 12.6 H (4.8-10.8) X10*3/uL RBC 3.68 L (4.20-5.50) X10*6/uL Hgb 11.3 L (12.0-16.0) g/dl Hct 32.6 L (37.0-47.0) % MCV 88.6 (80.0-98.0) fL MCH 30.7 (27.0-33.0) pg MCHC 34.7 (31.0-35.0) g/dl RDW 15.1 (11.0-16.0) % Plt Count 259 (160-400) X10*3/uL MPV 8.9 L (9.4-12.3) fL Immature Gran % (Auto) 0.2 (0.0-0.4) % Neut % (Auto) 60.2 (45-73) % Lymph % (Auto) 32.0 (20-40) % [place] % (Auto) 5.3 (2-11) % Eos % (Auto) 1.7 (0-4) % Baso % (Auto) 0.6 (0-2) % Lymph # (Auto) 4.0 (1.2-4.9) X10*3/uL [place] # (Auto) 0.7 (0.1-1.2) X10*3/uL Eos # (Auto) 0.2 (0.0-0.4) X10*3/uL Baso # (Auto) 0.1 (0.0-0.2) X10*3/uL Abs Immat Gran (auto) 0.03 (0.00-0.03) X10*3/uL Absolute Neuts (auto) 7.6 (2.0-8.3) x10*3/uL Absolute Nucleated RBC 0.000 (0.0-0.012) X10*3/uL Nucleated RBC % (auto) 0.0 (0.0-0.2) /100WBC Smear Tech's Comments VERIFIED PT 29.2 H D (10.9-12.4) SEC INR 2.5 H (0.9-1.1) Sodium 138 (135-145) mmol/L Potassium 4.2 (3.3-5.1) mmol/L Chloride 102 (96-108) mmol/L Carbon Dioxide 26 (22-29) mmol/L Anion Gap 14 (12-20) BUN 9 (9-16) mg/dL Creatinine 0.82 (0.5-1.4) mg/dL Estim Creat Clear Calc 80.4 Estimated GFR > 60 Random Glucose 92 (60-115) mg/dL Calcium 8.7 (8.4-10.2) mg/dL Magnesium 1.8 (1.6-2.6) mg/dL Total Bilirubin 0.2 (0.0-1.0) mg/dL AST 22 (5-31) U/L ALT 12 (0-31) U/L Alkaline Phosphatase 154 H (39-117) U/L Total Protein 6.5 (6.5-8.0) g/dL Albumin 4.1 (3.5-5.0) g/dL Urine Color Yellow Urine Appearance Clear Urine pH 6.0 (5.0-9.0) Ur Specific [place] <= 1.005 (1.005-1.025) Urine Protein Negative (Neg-Trace) mg/dL Urine Glucose (UA) Negative (Negative) mg/dL Urine Ketones Negative (Negative) mg/dL Urine Blood Moderate (2+) H (Negative) Urine Nitrite Negative (Negative) Ur Leukocyte Esterase Negative (Negative) Urine RBC 11-20 H (0-2) /HPF Urine WBC 0-5 (0-5) /HPF Ur Squamous Epith Cells 0-2 (0-2) /HPF Urine Bacteria None Seen (None Seen) Hyaline Casts 0-2 (0-2) /LPF COVID-19 (LINH) Negative (Negative) COVID-19 Clin Com See Note Influenza Type A (MIHAI) Negative (Negative) Influenza Type B (MIHAI) Negative (Negative) Influenza A & B Note See Note Radiology Impression Discussion of test interpretation with radiology: I have reviewed the radiologist's reading. Radiologist Impression: CT abdomen and pelvis with contrast Comparison: CT/SR - CT CHEST ANGIOGRAPHY WITH IV CONTRAST - 07/11/23 23:54 EST US/SR - US ABDOMEN LIMITED - 07/17/22 21:02 EST Findings: Bibasilar dependent atelectasis. The gallbladder is unremarkable. Stable 1 cm right adrenal lipoma. Other solid organs unremarkable. No renal stones. No bowel obstruction, pneumoperitoneum, or pneumatosis. Status post appendectomy. Status post TAHBSO. Urinary bladder unremarkable. The bones are intact. IMPRESSION: No acute findings. This document has been electronically signed by: Ga Odonnell MD on 02/28/2025 23:42:21 Independent Historian Clinical information obtained from an independent historian. History obtained from or confirmed by: Spouse Prescription Management I considered prescription management with: Pain Medication and Other (Antiemetics) Chronic Conditions Patient?s care impacted by: Other (Epilepsy, PE) Discharge Plan Discharge Clinical Impression: Viral gastroenteritis, Acute abdominal pain Patient Disposition: Home, Self-Care Instructions: Enteritis (ED) Additional Instructions: DIAGNOSIS & TREATMENT: You were seen in the Emergency Department for your abdominal pain. We performed[laboratory work and a CT scan of your abdomen and pelvis which did not reveal any acute abnormalities that would explain your symptoms. FURTHER CARE: We have not found any emergent physical exam or lab abnormalities that would require admission to the hospital today. Many people who come to the ER with abdominal pain do not leave with a specific diagnosis at the end of their visit. In the Emergency Department we try to make sure that there is no emergent problem that needs surgery or antibiotics right now. This does not mean that your evaluation is complete--please be sure to follow up with your regular doctor as additional testing as an outpatient may be indicated Please be certain to drink plenty of fluids over the next several. You should advance your diet as tolerated. You may wish to start with the BRAT diet (bananas, rice, applesauce, toast). WHEN YOU SHOULD BE SEEN NEXT: Please follow-up with your primary care provider within the next 2-3 days for reevaluation of your symptoms. WHEN TO RETURN TO THE ED: Monitor your symptoms closely and return to the emergency department immediately for any new/worsening symptoms, worsening abdominal pain, pain which changes location (particularly if it moved to the right lower quadrant), nausea, vomiting, blood in your stool, black/tarry stools, chest pain, shortness of breath, fevers, chills, night sweats, you are unable to arrange follow-up care, or any other concerning symptoms. For reference, your INR was 2.5 Prescriptions: New dicyclomine 20 mg tablet 20 mg PO TID Qty: 10 0RF ondansetron 4 mg tablet,disintegrating 4 mg PO Q8H PRN (Reason: nausea and vomiting) Qty: 10 0RF No Action phenytoin sodium extended 100 mg capsule 100 mg PO .COMPLEX 30 Days Qty: 300 5RF Rx Instructions: 100 mg orally TAKE 3 CAPSULES BY MOUTH EVERY MORNING, TAKE 4 CAPSULES IN THE AFTERNOON AND 3 CAPSULES EVERY EVENING; warfarin 5 mg tablet 5 mg PO DAILY Qty: 30 0RF citalopram 40 mg tablet 40 mg PO DAILY fluticasone propionate 50 mcg/actuation spray,suspension 2 spray intranasal DAILY albuterol sulfate [Ventolin HFA] 90 mcg/actuation Hfa Aerosol Inhaler 1 puff INHALATION Q4H PRN (Reason: Wheezing) alprazolam 1 mg tablet 0.5 mg PO .7 Xd Rx Instructions: patient reports cutting all 1 mg in half and taking 1 half seven times a day @0700,0900,1200,1400, 1600, 1800, 2000 fluoxetine 10 mg capsule 10 mg PO DAILY lorazepam 2 mg tablet 2 mg PO DAILY@1800 30 Days Qty: 30 4RF Interventions: ED Discharge Assessment Last Done: 03/01/25 00:51 Discharge Date/Time: 03/01/25 00:52 Print Language: Urdu
[2025-02-28 19:44] LABS: Hematocrit 32.6 % (37.0-47.0); Hemoglobin 11.3 g/dl (12.0-16.0); Imm Gran Abs Auto 0.03 X10*3/uL (0.00-0.03); Imm Gran Pct Auto 0.2 % (0.0-0.4); Lymphocytes Absolute Auto 4.0 X10*3/uL (1.2-4.9); MANUAL DIFF FLAG SCAN; Mean Corpuscular HGB Conc 34.7 g/dl (31.0-35.0); Mean Corpuscular Hemoglobin 30.7 pg (27.0-33.0); Mean Corpuscular Volume 88.6 fL (80.0-98.0); NRBC Abs Auto 0.000 X10*3/uL (0.0-0.012); NRBC Pct Auto 0.0 /100WBC (0.0-0.2); Platelet Count 259 X10*3/uL (160-400); Red Blood Count 3.68 X10*6/uL (4.20-5.50); SCAN SMEAR FLAG 1; White Blood Count 12.6 X10*3/uL (4.8-10.8)
[2025-02-28 19:58] LABS: COVID-19 Test Negative (Negative); IDNOW Serial# 08D9AD1C
[2025-02-28 20:00] LABS: Alanine Aminotransferase 12 U/L (0-31); Albumin Level 4.1 g/dL (3.5-5.0); Alkaline Phosphatase 154 U/L (39-117); Anion Gap 14 (12-20); Aspartate Amino Transferase 22 U/L (5-31); Blood Urea Nitrogen 9 mg/dL (9-16); Calcium 8.7 mg/dL (8.4-10.2); Carbon Dioxide 26 mmol/L (22-29); Chloride 102 mmol/L (96-108); Creatinine Clr Calc Pharmacy 80.4; Estimated Glomerular Filt Rate > 60; Magnesium 1.8 mg/dL (1.6-2.6); Potassium 4.2 mmol/L (3.3-5.1); Sodium 138 mmol/L (135-145); Total Protein 6.5 g/dL (6.5-8.0)
[2025-02-28 20:01] LABS: IDNOW Serial# 58CA691E; Influenza B2 Negative (Negative)
[2025-02-28 21:33] VITALS: BP 124/73; PULSE 70; RESP 16; TEMP 36.8; O2SAT 100
[2025-02-28 21:43] LABS: Appearance Urine Clear; Glucose Urine UA Negative (Negative); PH 6.0 (5.0-9.0); Specific Gravity - Urine <= 1.005 (1.005-1.025); UMIC TRIGGER UACC YES
--- OUTSIDE RECORDS SUMMARY | 2025-02-28 21:49 | XMS_ITS ---
Author Name [facility] Organization Unknown Care Team Organization Name Specialty Phone Email Start Date End Da te [facility] 02/23/2025 [facility] 05/14/2022 02/23/2024
--- OUTSIDE RECORDS SUMMARY | 2025-02-28 21:49 | XMS_ITS | Clinical Summary ---
Author Organization [facility] [address] [place] [address] Address [address] [place] [address] Phone Care Team Providers Care Primer Inspector Name Role Phone Jac Dueñas MD Primary Care Provider [phone] Allergies Active Allergy Reactions Criticality Noted Date [...] (COUMADIN) 5 mg tablet TAKE 1 TO 1 AND 1/2 TABLETS(5 TO 7.5 MG) BY MOUTH DAILY 135 tablet 1 02/16/20 25 Active warfarin (COUMADIN) 5 mg tablet TAKE 1 TO 1.5 TABLETS(5 TO 7.5 MG) BY MOUTH 1 TIME EACH DAY 60 tablet 01/06/20 25 025 Discontinued Active Problems Problem Noted Date Diagnosed Date Pulmonary embolism (CMS/[facility] V24, CMS/HCC V28) 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, followed by Dr. 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 02/14/2025 9:00 AM EDT Consult Orthopedic Surgery - [place] [address] [place] [address] Kayla Medina PA Carpal tunnel syndrome of right wrist; Right wrist pain 01/20/2025 11:45 AM EDT Anticoagulation - Warfarin Visit Coumadin [address] [phone] Pulmonary embolism, unspecified chronicity, unspecified pulmonary embolism type, unspecified whether acute cor pulmonale present ([facility]/HCC V24, CMS/HCC V28) (Primary Dx); 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 01/05/2025 9:45 AM EDT Anticoagulation - Warfarin Visit Coumadin [address] [phone] Pulmonary embolism, unspecified chronicity, unspecified pulmonary embolism type, unspecified whether acute cor pulmonale present ([facility]/HCC V24, CMS/HCC V28) (Primary Dx); 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 12/20/2024 11:00 AM EDT Office Visit Adult [address] [phone] Rome Velazquez [employer] Carpal tunnel syndrome of right wrist (Primary [...] for screening for cardiovascular disorders 12/20/2024 Telephone Adult [address] [phone] Rome Velazquez NP 12/15/2024 9:45 AM EDT Anticoagulation - Warfarin Visit [facility] Clinic [address] [phone] Pulmonary embolism, unspecified chronicity, unspecified pulmonary embolism type, unspecified whether acute cor pulmonale present (CMS/HCC V24, CMS/HCC V28) (Primary Dx); 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 12/08/2024 9:00 AM EDT Anticoagulation - Warfarin Visit Coumadin Clinic [address] [phone] Pulmonary embolism, unspecified chronicity, unspecified pulmonary embolism type, unspecified whether acute cor pulmonale present (CMS/HCC V24, CMS/HCC V28) (Primary Dx); 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 from Last 3 Months Immunizations Name Administration Dates Next Due Tdap Tetanus diptheria acell ular pertussis (Boostrix; Adacel) 7yo and older 12/06/2008 Surgical History Surgery Date Site/Laterality Comments HYSTERECTOMY 05/14/2005 PROCEDURE: HISTORICAL HYSTERECTOMY; COMMENT: [facility]), endometriosis excised SALPINGOOPHORECTOMY Right PROCEDURE: [place] LAPAROSCOPY W/RMVL ADNEXAL STRUCTURES; COMMENT: cysteadenoma benign OTHER SURGICAL HISTORY PROCEDURE: NERVE STIMULATOR FOR TX [place] Medical History Medical History Date Comments Migraine without aura, witho ut mention of intractable migraine without mention of status migrainosus 07/02/2005 DX:Migraine with out aura, without mention of intractable migraine without mention of status migrainosus Irritable bowel syndrome 07/02/2005 DX:Irri table bowel syndrome Paroxysmal supraventricular tachycardia (CMS/HCC V24) 07/02/2005 DX:Paroxysmal [...] type (HCC); COMMENT: s/p stimulator placement at [facility], followed by Dr. Jiménez Family History Medical [...] EDT Inhaled Oxygen Concentration - - Weight 79.4 kg (175 lb) 02/14/2025 8:52 AM EDT Height 162.6 cm (5' 4 ) 02/14/2025 8:52 AM EDT Body Mass Index 30.04 02/14/2025 8:52 AM EDT Plan of Treatment Upcoming Encounters Date Type Department Care Team (Late st Contact Info) Description 03/21/2025 11:00 AM EDT Anticoagulation - Warfarin Visit Coumadin [address] [phone] 03/28/2025 10:00 AM EDT Office Visit Orthopedic Surgery - [place] [address] [place] [address] Kayla Medina PA [address] [place] [phone] 06/21/2025 9:00 AM EST Office Visit Adult Medicine [facility] [place] [address] [place] [phone] Jac Dueñas MD [address] [place] [address] Health Maintenance Due Date Last Done Comments Breast Cancer Screening 1975 Cervical Cancer Screening: Pap Smear 12/05/2009 12/05/2008 Medicare Annual Wellness Visit 06/13/2022 Social Influencers of Health Screening 06/13/2022 Influenza Vaccine (#1) 2025 Cholesterol Screening (Lipid Panel) 12/20/2029 12/20/2024, 03/04/2023 Colorectal Cancer Screening: Colonoscopy 04/21/2034 04/21/2024, 04/21/2024 DTaP,Tdap,and Td Vaccines Discontinued 12/06/2008 COVID-19 Vaccine Discontinued 12/20/2020, 11/29/2020 Depression Screening Completed 12/20/2024 Hepatitis C Screening Completed 12/20/2024 HIB Vaccines [...] Diagnosis Comments POC PROTIME INR BLOOD Routine 02/22/2025 Pulmonary embolism, unspecified chronicity, unspecified pulmonary embolism type, unspecified whether acute cor pulmonale present (CMS/HCC V24, CMS/HCC V28) 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 POC PROTIME INR BLOOD Routine 01/20/2025 Pulmonary embolism, unspecified chronicity, unspecified pulmonary embolism type, unspecified whether acute cor pulmonale present (CMS/HCC V24, CMS/HCC V28) 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 POC PROTIME INR BLOOD Routine 01/05/2025 Pulmonary embolism, unspecified chronicity, unspecified pulmonary embolism type, unspecified whether acute cor pulmonale present (CMS/HCC V24, CMS/HCC V28) 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 Lot Number INR POC 2.3 Prothrombin Time POC Exp Date Blood 02/22/2025 us Felicity Welsh MD POINT OF CARE TEST ENT ER/EDIT ORDERABLES Final Result * Hepatitis C antibody (12/20/2024 10:48 AM EDT) Pathologist [facility] Hepatitis C Antibody Negative Negative LAB CHEMISTRY METHOD 12/20/2024 5:58 PM EDT [facility] Blood Venous blood specimen / Unknown Venipuncture / Unknown 12/20/2024 10:48 AM EDT 12/20/2024 10:48 AM EDT us Rome Velazquez NP LAB BLOOD ORDERABLES Final R esult [facility] [address] [place] [address], [place] [phone] * Thyroid stimulating hormone with reflex to free t4 and free t3 (12/20/2024 10:48 AM EDT) TSH 0.97 0.40 - 4.00 mcIU/mL LAB CHEMISTRY METHOD 12/20/2024 5:18 PM EDT [facility] Blood Venous blood specimen / Unknown Venipuncture / Unknown 12/20/2024 10:48 AM EDT 12/20/2024 10:48 AM EDT us Rome Velazquez [employer] LAB BLOOD ORDERABLES Final R esult [facility] [address] [place] [address], [place] [phone] * (ABNORMAL) Lipid panel with reflex to direct LDL (12/20/2024 10:48 AM EDT) Cholesterol 261(H) 0 - 200 mg/dL LAB CHEMISTRY [facility] Triglycerides 249(H) 0 - 150 mg/dL LAB CHEMISTRY METHOD 12/20/2024 4:52 PM [facility] HDL 73 >=40 mg/dL LAB CHEMISTRY METHOD 12/20/2024 4:52 PM T [facility] LDL Calculated 138(H) 0 - 100 mg/dL LAB CHEMISTRY METHOD 12/20/2024 4:52 PM [facility] VLDL Cholesterol Kend[place] 49.8 mg/dL LAB CHEMISTRY METHOD 12/20/2024 4:52 PM T [facility] Non HDL Chol. (LDL+VLDL) 188(H) <145 mg/dL LAB CHEMISTRY METHOD 12/20/2024 4:52 PM [facility] Chol/HDL Ratio 3.6 0.0 - 4.4 LAB CHEMISTRY METHOD 12/20/2024 4:52 PM [facility] Blood Venous blood specimen / Unknown Venipuncture / Unknown 12/20/2024 10:48 AM EDT 12/20/2024 10:48 AM EDT us Rome Velazquez [employer] LAB BLOOD ORDERABLES Final R esult [facility] [address] [place] [address], [place] [phone] * (ABNORMAL) CBC auto differential (12/20/2024 10:48 AM EDT) WBC 9.7 4.8 - 10.8 K/mcL LAB HEMETOLOGY METHOD 12/20/2024 12:41 PM EDT [facility] RBC 3.80 3.80 - 4.80 M/mcL LAB HEMETOLOGY METHOD 12/20/2024 12:41 PM EDT [facility] Hemoglobin 11.3(L) 11.5 - 16.0 g/dL LAB HEMETOLOGY METHOD 12/20/2024 12:41 PM EDT [facility] Hematocrit 35.2 35.0 - 47.0 % LAB HEMETOLOGY METHOD 12/20/2024 12:41 PM EDT [facility] MCV 92.6 79.0 - 98.0 FL LAB HEMETOLOGY METHOD 12/20/2024 12:41 PM EDT [facility] MCH 29.7 27.0 - 32.0 pcg LAB HEMETOLOGY METHOD 12/20/2024 12:41 PM EDT [facility] MCHC 32.1 32.0 - 37.0 g/dL LAB HEMETOLOGY METHOD 12/20/2024 12:41 PM EDT [facility] RDW 15.0 11.0 - 15.0 % LAB HEMETOLOGY METHOD 12/20/2024 12:[facility] Platelets 305 130 - 400 K/mcL LAB HEMETOLOGY METHOD 12/20/2024 12:41 PM EDT [facility] MPV 9.7 7.0 - 11.0 FL LAB HEMETOLOGY METHOD 12/20/2024 12:41 PM [facility] NRBC 0.0 <1.0 % LAB HEMETOLOGY METHOD 12/20/2024 12:41 PM [facility] NRBC Absolute 0.00 <0.10 K/mcL LAB HEMETOLOGY METHOD 12/20/2024 12:41 PM [facility] Neutrophils Relative 52.0 % LAB HEMETOLOGY METHOD 12/20/2024 12:41 PM [facility] Lymphocytes Relative 39.5 % LAB HEMETOLOGY METHOD 12/20/2024 12:41 PM [facility] Monocytes Relative 6.0 % LAB HEMETOLOGY METHOD 12/20/2024 12:41 PM [facility] Eosinophils Relative 1.4 % LAB HEMETOLOGY METHOD 12/20/2024 12:41 PM [facility] Basophils Relative 0.7 % LAB HEMETOLOGY METHOD 12/20/2024 12:41 PM [facility] Immature Granulocytes Relative 0.4 % LAB HEMETOLOGY METHOD 12/20/2024 12:41 PM [facility] Neutrophils Absolute 5.03 1.50 - 7.00 K/mcL LAB HEMETOLOGY METHOD 12/20/2024 12:41 PM [facility] Lymphocytes Absolute 3.83 1.00 - 5.00 K/mcL LAB HEMETOLOGY METHOD 12/20/2024 12:41 PM [facility] Monocytes Absolute 0.58 0.20 - 1.00 K/mcL LAB HEMETOLOGY METHOD 12/20/2024 12:41 PM [facility] Eosinophils Absolute 0.14 0.00 - 0.50 K/mcL LAB HEMETOLOGY METHOD 12/20/2024 12:41 PM EDT [facility] Basophils Absolute 0.07 0.00 - 0.20 K/mcL LAB HEMETOLOGY METHOD 12/20/2024 12:41 PM EDT [facility] Immature Granulocytes Absolute 0.04(H) 0.00 - 0.03 K/mcL LAB HEMETOLOGY METHOD 12/20/2024 12:41 PM T [facility] Blood Venous blood specimen / Unknown Venipuncture / Unknown 12/20/2024 10:48 AM EDT 12/20/2024 10:48 AM EDT us Rome Velazquez [employer] LAB BLOOD ORDERABLES Final R esult [facility] [address] [place] [address], [place] [phone] * (ABNORMAL) Comprehensive metabolic panel (12/20/2024 10:48 AM EDT) Sodium 139 133 - 145 mmol/L LAB CHEMISTRY METHOD 12/20/2024 4:52 PM [facility] Potassium 4.5 3.5 - 5.5 mmol/L LAB CHEMISTRY METHOD 12/20/2024 4:52 PM [facility] Chloride 106 96 - 110 mmol/L LAB CHEMISTRY METHOD 12/20/2024 4:52 PM [facility] CO2 30 21 - 32 mmol/L LAB CHEMISTRY METHOD 12/20/2024 4:52 PM [facility] Anion Gap 3 3 - 11 LAB CHEMISTRY METHOD 12/20/2024 4:52 PM [facility] Glucose 89 70 - 100 mg/dL LAB CHEMISTRY METHOD 12/20/2024 4:52 PM [facility] BUN 12 5 - 25 mg/dL LAB CHEMISTRY METHOD 12/20/2024 4:52 PM [facility] Creatinine 0.78 0.50 - 1.10 mg/dL LAB CHEMISTRY METHOD 12/20/2024 4:52 PM [facility] eGFR 92 >=60 mL/min/1. 73m2 LAB CHEMISTRY METHOD 12/20/2024 4:52 PM [facility] Comment:Calculation based on the Chronic Kidney Disease Epidemiology Collaboration (CKD-EPI) equation refit without adjustment for race. BUN/Creatinine Ratio 15.4 LAB CHEMISTRY METHOD 12/20/2024 4:52 PM [facility] Calcium 8.7 8.5 - 10.5 mg/dL LAB CHEMISTRY METHOD 12/20/2024 4:52 PM [facility] AST (SGOT) 20 10 - 42 unit/L LAB CHEMISTRY METHOD 12/20/2024 4:52 PM [facility] ALT (SGPT) 20 10 - 60 unit/L LAB CHEMISTRY METHOD 12/20/2024 4:52 PM [facility] Alkaline Phosphatase 155(H) 42 - 121 unit/L LAB CHEMISTRY METHOD 12/20/2024 4:52 PM [facility] Total Protein 6.6 6.0 - 8.0 g/dL LAB CHEMISTRY METHOD 12/20/2024 4:52 PM [facility] Albumin 3.4 3.2 - 5.0 g/dL LAB CHEMISTRY METHOD 12/20/2024 4:52 PM [facility] Total Bilirubin 0.2 0.0 - 1.4 mg/dL LAB CHEMISTRY METHOD 12/20/2024 4:52 PM [facility] Blood Venous blood specimen / Unknown Venipuncture / Unknown 12/20/2024 10:48 AM EDT 12/20/2024 10:48 AM EDT us Rome Velazquez NP LAB BLOOD ORDERABLES Final R esult [facility] [address] [place] [address], [place] [phone] * Prothrombin time with INR (12/08/2024) Pathologist [facility] INR 1.8 Prothrombin Time POC Blood Venous blood specimen / Unknown 12/08/2024 Cely Hawthorne MD LAB BLOOD ORDERABL ES Final Result * Colonoscopy (04/21/2024) Colonoscopy abnormal, abstracted Anatomical Region Laterality Modality Other Historical Provider HEALTH MAINTENANCE Final Result * Pap Smear (12/05/2008) Pathologist [facility] Pap smear no interpretation , abstracted Historical Provider HEALTH MAINTENANCE Final Result from Last 3 Months or Most Recently Relevant to Health Maintenance Insurance MEDICARE MEDICAID - [place] Care Teams Primer Inspector Relationship Specialty Start Date End Date Jac Dueñas MD [address] [place] [address] [facility] - General 05/06/1999
[2025-02-28 22:35] VITALS: RESP 16
[2025-02-28] MEDS: Lactated Ringers 1,000 ML 999 ML IV (22:35)
[2025-02-28] MEDS: iohexoL 350 MG/ML 100 ML INFUS..BTL IV (23:06)
[2025-02-28 23:07] LABS: INTERNATIONAL NORM RATIO 2.5 (0.9-1.1); Prothrombin Time 29.2 SEC (10.9-12.4)
[2025-03-01 00:51] VITALS: BP 109/70; PULSE 75; RESP 16; TEMP 36.6; O2SAT 99
== END 2025-03-01 00:52 | disposition home or self-care (01) ==
PROVIDERS: Physician Assistant Medical; Emergency Provider Emergency Medicine; PCP Internal Medicine
DX: R10.2 Pelvic and perineal pain (principal); R11.2 Nausea with vomiting, unspecified; R19.7 Diarrhea, unspecified; Z79.01 Long term (current) use of anticoagulants; Z79.899 Other long term (current) drug therapy; Z03.818 Encounter for observation for suspected exposure to other biological agents ruled out
CPT/HCPCS: 36415; 74177; 80053; 81001; 83735; 85025; 85610; 87502; 87635; 96361; 96374; 96375; 99284; 99285; J2270; J2405; J7120; Q9967

== ENCOUNTER 2025-07-04 11:28 | Emergency (ER) | payer MEDICARE, MEDICAID, SELFPAY ==
--- NOTE | ~2025-07-04 | CT_ITS ---
CLINICAL HISTORY: right flank pain, hematuria CT abdomen and pelvis without contrast Comparison: CT/SR - CT ABDOMEN PELVIS W IV CON - 02/28/25 22:55 EDT Findings: LIMITED CHEST: Lung bases are clear. LIVER: No focal liver lesion. BILIARY: No gallbladder wall thickening, radiopaque stone, or ductal dilatation. PANCREAS: No mass or ductal dilatation. SPLEEN: No splenomegaly. KIDNEYS: No hydronephrosis or radiopaque stone. ADRENALS: Similar fat containing right adrenal myelolipoma. VASCULAR: No aneurysm. RETROPERITONEUM: No lymphadenopathy or mass. BOWEL/MESENTERY: No evidence of obstruction. No free fluid or air. ABDOMINAL WALL: No mass or significant abnormality. URINARY BLADDER: No focal wall thickening. PELVIC NODES: No pelvic lymphadenopathy. PELVIC ORGANS: Hysterectomy. BONES: No acute fracture. OTHER: Negative. IMPRESSION: No acute abnormality. No hydronephrosis or nephrolithiasis. This document has been electronically signed by: Leigh Vale MD on 07/04/2025 19:01:43
[2025-07-04 12:02] VITALS: BP 140/74; PULSE 89; RESP 16; TEMP 36.9; O2SAT 98; BMI 29.2
--- NOTE | 2025-07-04 12:02 | ED.GENADULT ---
HPI - General Adult General Chief complaint: Urogenital-Female Stated complaint: History Of Blood Clots- R Flank Area Pain Time Seen by Provider: 07/04/25 17:43 Source: patient, RN notes reviewed and old records reviewed Mode of arrival: ambulatory Limitations: no limitations History of Present Illness ED Provider: Reinaldo HPI narrative: 49-year-old female with a past medical history significant for epilepsy, pulmonary embolism on Coumadin, mood disorder presents for evaluation of right flank pain. Patient reports severe right flank pain that radiates to her right lower abdomen for the last 5 days. She reports a significant amount of blood in the urine. Denies any fevers, chills pain Denies any burning with urination. She reports that she is urinating frequently. Her pain waxes and wanes in intensity. She took some Tylenol without any improvement Related Data Home Medications ?Medication ?Instructions ?Recorded ?Confirmed albuterol sulfate 90 mcg/actuation 1 puff inhalation Q4H PRN Wheezing 07/12/23 01/19/25 aerosol inhaler (Ventolin HFA) fluticasone propionate 50 2 spray intranasal DAILY 07/12/23 01/19/25 mcg/actuation nasal spray,suspension Previous Rx's ?Medication ?Instructions ?Recorded warfarin 5 mg tablet 5 mg PO DAILY #30 tabs 08/01/23 phenytoin sodium extended 100 mg 100 mg PO .COMPLEX 30 days #300 01/04/25 capsule caps dicyclomine 20 mg tablet 20 mg PO TID #10 tabs 03/01/25 ondansetron 4 mg disintegrating 4 mg PO Q8H PRN nausea and 03/01/25 tablet vomiting #10 tabs citalopram 40 mg tablet 40 mg PO DAILY 90 days #90 tabs 04/11/25 fluoxetine 10 mg tablet 15 mg (1.5 x 10 mg) PO DAILY 30 04/12/25 days #45 tabs alprazolam 1 mg tablet 0.5 mg (1/2 x 1 mg) PO .COMPLEX 30 06/13/25 days #105 tabs lorazepam 2 mg tablet 2 mg PO DAILY@1800 30 days #30 tabs 06/13/25 Allergies Allergy/AdvReac Type Severity Reaction Status Date / Time ciprofloxacin (From CIPRO) Allergy Unknown UNKNOWN Verified 07/04/25 12:05 From CIPRO Allergy Unknown UNKNOWN Uncoded 07/04/25 12:05 Review of Systems Constitutional: Constitutional: Denies body ache(s), Denies chills, Denies fever(s) and Denies headache(s) ENT: Denies headache(s) Cardiovascular: Cardiovascular: Denies chest pain and Denies dyspnea on exertion Respiratory: Respiratory: Denies cough and Denies dyspnea on exertion Gastrointestinal: Gastrointestinal: Reports abdominal pain, Denies melena, Denies diarrhea, Denies loose stools, Reports nausea and Denies vomiting Genitourinary: Genitourinary: Reports hematuria, Denies pelvic pain and Reports flank pain Musculoskeletal: Musculoskeletal: Reports back pain Integumentary/Breasts: Skin/Breast: Denies rash Neurologic: Denies headache(s) PMFSH Past Medical History Medical History Localization-related (focal) (partial) idiopathic epilepsy and epileptic syndromes with seizures of localized onset, intractable, without status epilepticus Panic attacks Seizures Partial epilepsy with impairment of consciousness, with intractable epilepsy Mood disorder Grand mal seizure Surgical History S/P placement of VNS (vagus nerve stimulation) device S/P removal of right ovary S/P removal of left ovary Family History Family History Maternal Grandmother Breast CA Maternal Aunt Lung cancer Father Prostate CA Social History Social History Household Members: Spouse Alcohol intake: never Patient Tobacco Use Status: Current everyday Tobacco user Advance Directives: No Advance Directives Information Provided: No Do you have a plan to hurt others: No Plan service: No Current occupational status: disabled Physical Exam ED Vital Signs: Vital Signs - 24 hr 07/04/25 12:02 Temperature 98.5 F Pulse Rate 89 Respiratory Rate 16 Blood Pressure 140/74 H Pulse Oximetry 98 Oxygen Delivery Method Room Air BMI result Body Mass Index 29.2 Const General: healthy appearing, no acute distress, alert and awake Nutritional Appearance: well nourished Orientation/consciousness: patient oriented x3 HENMT Head: Yes normocephalic and Yes atraumatic Eyes Eyelids: Yes eyelids normal Conjunctivae: conjunctivae normal Sclerae: sclerae normal Corneas: corneas normal Pupils: Equal, round and reactive pupils present EOM: EOMs intact bilaterally Neck Neck: Yes full ROM Resp Effort & Inspection: normal respiratory effort, able to speak in complete sentences and not labored GI Other: Tenderness palpation of the right flank. Positive CVA tenderness on right. Inspection: No distended Palpation (GI): Soft to palpation, not firm, Tenderness to palpation present (GI), no guarding and not rigid Skin General skin exam: no rashes or lesions noted and elasticity normal Neuro General: patient oriented x3 Cranial nerves: Yes Equal, round and reactive pupils present and Yes Bilaterally intact EOM present Cognition (Neuro): normal cognition Extrem Other: Moving all extremities well without any obvious deformities Course Course Course Narrative: Rapid medical examination performed in triage by Sadie Berman PA-C: Patient is a 49 year old female presenting to the emergency department with right sided flank / low back pain. Patient states that she has a history of a PE and this is where it was last time. Detailed physical exam and review of systems are deferred to the court liaison. Labs and imaging ordered. Patient placed back in the waiting room pending room availability and results. Reevaluation(s) Reevaluation #1: Patient's CT scan of the abdomen pelvis did not show any obstructive uropathy or obvious source of her hematuria. There was no evidence of infection. I discussed these results with the patient. Her flank pain is reproducible on exam and may be musculoskeletal in origin. Her vital signs are within normal limits, Time: 19:10 Medical Decision Making Medical Decision Making [facility] Narrative: 49-year-old female presents for evaluation of right flank pain in the last 5 days. She also reports blood in the urine. Her urinalysis is consistent with hematuria. She is on Coumadin with an INR that is therapeutic at 2.8. Her labs are reassuring, [place] [address]. Renal function within normal limits. plan for a CT scan of the abdomen pelvis to evaluate for obstructive uropathy. Differential Diagnosis Differential Diagnoses: The differential diagnosis associated with the presentation includes Obstructive uropathy Pyelonephritis UTI Flank pain Muscle strain Lab Data [facility] Lab Attestation statement: I reviewed the patient's lab results. Mild leukocytosis, chronic, stable anemia. Normal platelet count. No electrolyte abnormalities warranting dimension. 07/04/25 13:28 07/04/25 13:28 Labs: Lab Results 07/04/25 Range/Units 13:28 WBC 13.2 H (4.8-10.8) X10*3/uL RBC 3.85 L (4.20-5.50) X10*6/uL Hgb 11.7 L (12.0-16.0) g/dl Hct 35.3 L (37.0-47.0) % MCV 91.7 (80.0-98.0) fL MCH 30.4 (27.0-33.0) pg MCHC 33.1 (31.0-35.0) g/dl RDW 14.3 (11.0-16.0) % Plt Count 260 (160-400) X10*3/uL MPV 8.9 L (9.4-12.3) fL Immature Gran % (Auto) 0.4 (0.0-0.4) % Neut % (Auto) 61.8 (45-73) % Lymph % (Auto) 31.4 (20-40) % [place] % (Auto) 4.6 (2-11) % Eos % (Auto) 1.2 (0-4) % Baso % (Auto) 0.6 (0-2) % Lymph # (Auto) 4.1 (1.2-4.9) X10*3/uL [place] # (Auto) 0.6 (0.1-1.2) X10*3/uL Eos # (Auto) 0.2 (0.0-0.4) X10*3/uL Baso # (Auto) 0.1 (0.0-0.2) X10*3/uL Abs Immat Gran (auto) 0.05 H (0.00-0.03) X10*3/uL Absolute Neuts (auto) 8.1 (2.0-8.3) x10*3/uL Absolute Nucleated RBC 0.000 (0.0-0.012) X10*3/uL Nucleated RBC % (auto) 0.0 (0.0-0.2) /100WBC Smear Tech's Comments VERIFIED PT 33.5 H (11.2-13.5) SEC INR 2.8 H (0.9-1.1) Sodium 142 (135-145) mmol/L Potassium 4.3 (3.3-5.1) mmol/L Chloride 107 (96-108) mmol/L Carbon Dioxide 29 (22-29) mmol/L Anion Gap 10 L (12-20) BUN 11 (9-16) mg/dL Creatinine 0.78 (0.5-1.4) mg/dL Estim Creat Clear Calc 85.7 Estimated GFR > 60 Random Glucose 87 (60-115) mg/dL Calcium 8.7 (8.4-10.2) mg/dL Magnesium 1.9 (1.6-2.6) mg/dL Total Bilirubin 0.2 (0.0-1.0) mg/dL AST 25 (5-31) U/L ALT 21 (0-31) U/L Alkaline Phosphatase 145 H (39-117) U/L Total Protein 6.6 (6.5-8.0) g/dL Albumin 4.1 (3.5-5.0) g/dL Urine Color Yellow Urine Appearance Clear Urine pH 6.5 (5.0-9.0) Ur Specific [place] 1.010 (1.005-1.025) Urine Protein Trace (Neg-Trace) mg/dL Urine Glucose (UA) Negative (Negative) mg/dL Urine Ketones Negative (Negative) mg/dL Urine Blood Moderate (2+) H (Negative) Urine Nitrite Negative (Negative) Ur Leukocyte Esterase Negative (Negative) Urine RBC >20 H (0-2) /HPF Urine WBC 0-5 (0-5) /HPF Ur Squamous Epith Cells 3-5 (0-2) /HPF Urine Bacteria Trace (None Seen) Hyaline Casts 0-2 (0-2) /LPF Radiology Impression Discussion of test interpretation with radiology: I have reviewed the radiologist's reading. Radiologist Impression: Findings: LIMITED CHEST: Lung bases are clear. LIVER: No focal liver lesion. BILIARY: No gallbladder wall thickening, radiopaque stone, or ductal dilatation. PANCREAS: No mass or ductal dilatation. SPLEEN: No splenomegaly. KIDNEYS: No hydronephrosis or radiopaque stone. ADRENALS: Similar fat containing right adrenal myelolipoma. VASCULAR: No aneurysm. RETROPERITONEUM: No lymphadenopathy or mass. BOWEL/MESENTERY: No evidence of obstruction. No free fluid or air. ABDOMINAL WALL: No mass or significant abnormality. URINARY BLADDER: No focal wall thickening. PELVIC NODES: No pelvic lymphadenopathy. PELVIC ORGANS: Hysterectomy. BONES: No acute fracture. OTHER: Negative. IMPRESSION: No acute abnormality. No hydronephrosis or nephrolithiasis. This document has been electronically signed by: Leigh Vale MD on 07/04/2025 19:01:43 Tests considered The following testing was considered but not selected: Consider CT angiography of the chest due to history of PE but the patient is anticoagulated, she is therapeutic. She is not hypoxic, tachycardic or tachypneic. Her pain is reproducible on exam, I do not suspect that her right flank pain is related to a pulmonary embolism. Discharge Plan Discharge Clinical Impression: Hematuria Patient Disposition: Home, Self-Care Instructions: Hematuria (ED) Additional Instructions: Your blood work today was reassuring pain Your urinalysis had a significant amount of blood in the urine but no signs of kidney stone or any other source of bleeding. I recommend that you follow up with Urology for a cystoscopy to see if they can locate the source of the bleeding. In the meantime follow up with your primary doctor and return for new or worsening symptoms [facility] will be contacting you within 2 business?days after being discharged from the Emergency?Department.? During this?phone call, they will inform you when your follow up appointment will be scheduled. If you have not received a call from [facility] after 2 business?days, please call the?office at [phone]. Prescriptions: No Action phenytoin sodium extended 100 mg capsule 100 mg PO .COMPLEX 30 Days Qty: 300 5RF Rx Instructions: 100 mg orally TAKE 3 CAPSULES BY MOUTH EVERY MORNING, TAKE 4 CAPSULES IN THE AFTERNOON AND 3 CAPSULES EVERY EVENING; citalopram 40 mg tablet 40 mg PO DAILY 90 Days Qty: 90 1RF fluoxetine 10 mg tablet 15 mg PO DAILY 30 Days Qty: 45 5RF alprazolam 1 mg tablet 0.5 mg PO .COMPLEX 30 Days Qty: 105 2RF Rx Instructions: 0.5 mg orally 1/2 tablet q2h x 7 doses/day (total 3.5mg/day); lorazepam 2 mg tablet 2 mg PO DAILY@1800 30 Days Qty: 30 2RF warfarin 5 mg tablet 5 mg PO DAILY Qty: 30 0RF fluticasone propionate 50 mcg/actuation spray,suspension 2 spray intranasal DAILY albuterol sulfate [Ventolin HFA] 90 mcg/actuation Hfa Aerosol Inhaler 1 puff INHALATION Q4H PRN (Reason: Wheezing) dicyclomine 20 mg tablet 20 mg PO TID Qty: 10 0RF ondansetron 4 mg tablet,disintegrating 4 mg PO Q8H PRN (Reason: nausea and vomiting) Qty: 10 0RF Referrals: Francisco Faulkner MD [Physician, Urology] Referral Note: right flank pain, hematuria Interventions: ED Discharge Assessment Last Done: 07/04/25 19:18 Print Language: Japanese
[2025-07-04 13:46] LABS: Appearance Urine Clear; Glucose Urine UA Negative (Negative); Hematocrit 35.3 % (37.0-47.0); Hemoglobin 11.7 g/dl (12.0-16.0); Imm Gran Abs Auto 0.05 X10*3/uL (0.00-0.03); Imm Gran Pct Auto 0.4 % (0.0-0.4); Lymphocytes Absolute Auto 4.1 X10*3/uL (1.2-4.9); MANUAL DIFF FLAG SCAN; Mean Corpuscular HGB Conc 33.1 g/dl (31.0-35.0); Mean Corpuscular Hemoglobin 30.4 pg (27.0-33.0); Mean Corpuscular Volume 91.7 fL (80.0-98.0); NRBC Abs Auto 0.000 X10*3/uL (0.0-0.012); NRBC Pct Auto 0.0 /100WBC (0.0-0.2); PH 6.5 (5.0-9.0); Platelet Count 260 X10*3/uL (160-400); Red Blood Count 3.85 X10*6/uL (4.20-5.50); SCAN SMEAR FLAG 1; Specific Gravity - Urine 1.010 (1.005-1.025); UMIC TRIGGER UACC YES; White Blood Count 13.2 X10*3/uL (4.8-10.8)
[2025-07-04 13:51] LABS: INTERNATIONAL NORM RATIO 2.8 (0.9-1.1); Prothrombin Time 33.5 SEC (11.2-13.5)
[2025-07-04 14:01] LABS: Alanine Aminotransferase 21 U/L (0-31); Albumin Level 4.1 g/dL (3.5-5.0); Alkaline Phosphatase 145 U/L (39-117); Anion Gap 10 (12-20); Aspartate Amino Transferase 25 U/L (5-31); Blood Urea Nitrogen 11 mg/dL (9-16); Calcium 8.7 mg/dL (8.4-10.2); Carbon Dioxide 29 mmol/L (22-29); Chloride 107 mmol/L (96-108); Creatinine Clr Calc Pharmacy 85.7; Estimated Glomerular Filt Rate > 60; Magnesium 1.9 mg/dL (1.6-2.6); Potassium 4.3 mmol/L (3.3-5.1); Sodium 142 mmol/L (135-145); Total Protein 6.6 g/dL (6.5-8.0)
--- OUTSIDE RECORDS SUMMARY | 2025-07-04 18:15 | XMS_ITS | Encounter Summary ---
Author Organization [facility] [place] [address] Care Team Providers Care Quarter Supervisor Name Role Phone Jac Dueñas MD Primary Care Provider [phone] Reason for Visit * Reason Onset Date Comments Blood in Urine 07/04/2025 Encounter Details Date Type Department Care Team (Late st Contact Info) Description 07/04/2025 Telephone Adult Medicine [facility] [place] [address] [place] [address] Jac Dueñas MD [address] [place] [address] Social History Tobacco Use Types Packs/Day Years Used Date Smoking Tobacco: Every Day Cigarettes 1 30 Started: 1995 Smokeless Tobacco: Never Alcohol Use Standard Drinks/Week Comments No 0 (1 standard drink = 0.6 oz pur e alcohol) Comments No Sex and Gender Information Value Date Recorded Sex Assigned at Not on file Legal Sex Female 3:22 AM EST Gender Identity Female 08/09/2023 6:27 AM EST Sexual Orientation Straight 08/09/2023 6: 27 AM EST documented as of this encounter Progress Notes * Olesya Acosta RN - 07/04/2025 2:36 PM EST Pt is at the [facility] , [facility] [place] she will wait to be seen at the ed and call for f/u * Liz Guajardo - 07/04/2025 2:15 PM EST Patient call requires triage: Symptoms patient is presenting: Patient states she [facility] to [facility] 07/[facility]/2025 for Blood in Urine. Offered next available - patient declined requesting for sooner. Patient states blood in urine has increased since last office visit with PCP on 06/21/2025. Lower back pain and lower right abdomen pain. Patient states urgent care would like patient to get CT Scan with contrast assoon as possible. Please advise. How long has patient had these symptoms?: For ALL patients calling to schedule any appointment (routine, sick visit, follow up, consult, etc.) in the outpatient setting please ask the following questions: Do you have fever of higher than 101, sore throat with difficulty swallowing or severe shortness ofbreath? no If YES to any of these above symptoms, send a message to triage and do not book. Red dot. If no, an audio or video visit should be booked. Have you had close contact with someone with Coronavirus in the last 14 days? no Have you traveled abroad? no Have you traveled recently to another state outside of [place], [place], [place], [place], [place], [place], [place]? no o If yes, did you quarantine for 14 days or have a negative covid test? no If yes to any of the above, patient is not to be scheduled in office until after 14 day quarantine or negative covid test. If pain or injury related was it due to an accident at work or from a motor vehicle accident? If yes, date of accident/Injury: No If yes, gather 3rd republican insurance information Third Democrat Information: not applicable PCP: Jac Dueñas MD Payor: MEDICARE / Plan: MEDICARE PART A & B / Product Type: Medicare / documented in this encounter Plan of Treatment Upcoming Encounters Date Type Department Care Team (Late st Contact Info) Description 07/05/2025 9:00 AM EST Clinical Support Coumadin [address] [phone] 07/25/2025 8:30 AM EST Office Visit [facility] [place] [facility] [place] [address], [place] [phone] Rome Velazquez NP [address], [place] 03/08/2026 2:40 PM EDT Office Visit Gastroenterology - [address] [phone] Susannah Harris, SULLY [address] [address] documented as of this encounter Visit Diagnoses Not on filedocumented in this encounter Additional Health Concerns Assessment Noted Time PHQ-9 Depression Total Score: 0 12/21/19 25 10:00 AM EDT documented as of this encounter Care Teams Quarter Supervisor Relationship Specialty Start Date End Date Jac Dueñas MD [address], [place] PCP - General 05/06/1999 documented as of this encounter
--- OUTSIDE RECORDS SUMMARY | 2025-07-04 18:15 | XMS_ITS | Clinical Summary ---
Author Organization [facility] [address] [place] [address] [place] [phone] Phone Care Team Providers Care Network Engineer Administrator Name Role Phone Jac Dueñas MD Primary Care Provider [phone] Allergies Active Allergy Reactions Criticality Noted Date [...] Active folic acid (FOLVITE) 800 mcg tablet Prescribed in Gastroenterology 024 Active LORazepam (ATIVAN) 2 mg tablet Take 1 tablet (2 mg total) by mouth 1 (one) time each day. Patient takes at bedtime Prescribed by Neurologist Active fluticasone propionate (FLONASE) 50 mcg/actuation nasal spray USE 1 SPRAY IN EACH NOSTRIL EVERY DAY 48 g 1 025 Active diclofenac (VOLTAREN) 1 % topical gel Apply 2 gram four times daily to affected joint 100 g 025 Active ondansetron ODT (ZOFRAN-ODT) 4 mg disintegrating tabletIndication s:Hematuria, unspecified type,Lower abdominal pain Dissolve 1 tablet (4 mg total) on top of the tongue if needed for nausea or vomiting. Prescribed at [facility] 20 tablet 025 Active warfarin (COUMADIN) 5 mg tablet TAKE 1 TO 1 AND 1/2 TABLETS(5 TO 7.5 MG) BY MOUTH DAILY 135 tablet 1 025 Active omeprazole (PriLOSEC) [address] capsule Take 1 capsule (40 mg total) by mouth 1 (one) time each day. Do not crush or chew. 30 each 11 025 06/21 Active omeprazole (PriLOSEC) [address] capsule Take 1 capsule (20 mg total) by mouth 2 (two) times a day before meals. 180 each 3 025 06/21 Discontinued Active Problems Problem Noted Date Diagnosed Date Pulmonary embolism 05/19/2024 shelter (current) use of anticoagulants 2023 Colon polyps [...] Overview (06/11/2024): IMO update Paroxysmal supraventricular tachycardia 07/02/20 05 Convulsions 07/02/2005 Overview (06/11/2024): s/p stimulator placement at [facility], followed by Dr. Jiménez Encounters Date Type Department Care Team Description 07/04/2025 Telephone Adult Medicine [address] [phone] Jac Dueñas MD 06/28/2025 9:00 AM EST Clinical Support Coumadin [address] [phone] Pulmonary embolism, unspecified chronicity, unspecified pulmonary embolism type, unspecified whether acute cor pulmonale present (CMS/HCC V24, CMS/HCC V28) (Primary Dx); shelter (current) use of anticoagulants 06/21/2025 10:45 AM EST - 06/21/2025 11:59 PM EST Hospital Encounter [facility] CT Scan [address] [place] [phone] Encounter for screening for malignant neoplasm of respiratory organs; Nicotine dependence, cigarettes, uncomplicated Discharge Disposition: Home or Self Care 06/21/2025 10:30 AM EST Office Visit Lung Screening Program - [address] [phone] Christin Dewitt NP Encounter for screening for malignant neoplasm of lung in current smoker with 30 pack year history or greater (Primary Dx) 06/21/2025 9:00 AM EST Office Visit Adult Medicine [address] [phone] Jac Dueñas MD Epigastric pain (Primary Dx); Black stool; Iron deficiency anemia, unspecified iron deficiency anemia type; 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; Irritable bowel syndrome, unspecified type 06/21/2025 8:30 AM EST Clinical Support Coumadin [address] [phone] Pulmonary embolism, unspecified chronicity, unspecified pulmonary embolism type, unspecified whether acute cor pulmonale present (CMS/HCC V24, CMS/HCC V28) (Primary Dx); shelter (current) use of anticoagulants 05/31/2025 9:00 AM EST Clinical Support Coumadin [address] [phone] Pulmonary embolism, unspecified chronicity, unspecified pulmonary embolism type, unspecified whether acute cor pulmonale present (CMS/HCC V24, CMS/HCC V28) (Primary Dx); 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 05/11/2025 8:35 AM EST Lab Draw [address] Hematuria, unspecified type; Lower abdominal pain; Alkaline phosphatase elevation 05/11/2025 7:30 AM EST Office Visit [address] [phone] Rome Velazquez, SULLY Hematuria, unspecified type (Primary Dx); Lower abdominal pain; Nausea; Encounter for screening for malignant neoplasm of lung; Encounter for screening mammogram for malignant neoplasm of breast 05/11/2025 Results Follow-Up [address] [phone] Rome Velazquez NP 05/11/2025 Results Follow-Up [address] [phone] Rome Velazquez, JAZZ MUSICIAN 05/03/2025 9:00 AM EDT Clinical Support Coumadin [address] [phone] Pulmonary embolism, unspecified chronicity, unspecified pulmonary embolism type, unspecified whether acute cor pulmonale present (CMS/HCC V24, CMS/HCC V28) (Primary Dx); shelter (current) use of anticoagulants 05/03/2025 - 05/04/2025 1:49 AM EDT Emergency [facility] Emergency [address] [place] [phone] Discharge Disposition: ED Dismiss - Never Arrived 04/26/2025 9:00 AM EDT Clinical Support Coumadin [address] [phone] Pulmonary embolism, unspecified chronicity, unspecified pulmonary embolism type, unspecified whether acute cor pulmonale present (CMS/[facility] V24, CMS/[facility] V28) (Primary Dx); shelter (current) use of anticoagulants from Last 3 Months Immunizations Immunization Administration Dates Next Due Tdap Tetanus diptheria acell ular pertussis (Boostrix; Adacel) 7yo and older 12/06/2008 Surgical History Surgery Date Site/Laterality Comments HYSTERECTOMY 05/14/2005 PROCEDURE: HISTORICAL HYSTERECTOMY; COMMENT: MARIA DEL ROSARIO (Radha), endometriosis excised SALPINGOOPHORECTOMY Right PROCEDURE: UT LAPAROSCOPY W/RMVL ADNEXAL STRUCTURES; COMMENT: cysteadenoma benign OTHER SURGICAL HISTORY PROCEDURE: NERVE STIMULATOR FOR [place] Medical History Medical History Date Comments Migraine without aura, witho ut mention of intractable migraine without mention of status migrainosus 07/02/2005 DX:Migraine with out aura, without mention of intractable migraine without mention of status migrainosus Irritable bowel syndrome 07/02/2005 DX:Irri table bowel syndrome Paroxysmal supraventricular tachycardia ([facility] V24) 07/02/2005 DX:Paroxysmal supraventricul ar tachycardia (HCC) Iron deficiency anemia, unspecified 07/02/2005 DX:Iron deficiency anemia, unspecified Endometriosis of pelvic peritoneum 05/14/2005 DX:Endometriosis of pelvic peritoneum; COMMENT: S/P hysterectomy, ovaries conserved Other convulsions 07/02/2005 DX:Other convu lsions Paroxysmal supraventricular tachycardia ([facility] V24) 07/02/2005 DX:Paroxysmal supraventricul ar tachycardia (HCC) Convulsions, unspecified con vulsion type (CMS/HCC V24, CMS/HCC V28) 07/02/2005 DX:Convulsions, unspec ified convulsion type (HCC); COMMENT: s/p stimulator placement at [facility], followed by Dr. Jiménez Family History Medical [...] Used Date Smoking Tobacco: Every Day Cigarettes 08 05 Started: 1995 Smokeless Tobacco: Never Tobacco Cessation:Ready to Q uit: Not Asked; Counseling Given: Not Answered Alcohol Use Standard Drinks/Week Comments No 0 (1 standard drink = 0.6 oz pur e alcohol) Comments No Sex and Gender Information Value Date Recorded Sex Assigned at Not on file Legal Sex Female 3:22 AM EST Gender Identity Female 08/09/2023 6:27 AM EST Sexual Orientation Straight 08/09/2023 6: 27 AM EST Last Filed Vital Signs Vital Sign Reading Time Taken Comments Blood Pressure 126/66 06/21/2025 9:00 AM EST Pulse 92 06/21/2025 9:00 AM EST Temperature 36.7 C (98.1 F) 06/21/2025 10:26 AM EST Respiratory Rate 16 06/21/2025 9:00 AM EST Oxygen Saturation 98% 06/21/2025 9:00 AM EST Inhaled Oxygen Concentration - - Weight 77.1 kg (170 lb) 06/21/2025 9:00 AM EST Height 162.6 cm (5' 4 ) 05/11/2025 7:37 AM EST Body Mass Index 29.18 05/11/2025 7:37 AM EST Plan of Treatment Upcoming Encounters Date Type Department Care Team (Late st Contact Info) Description 07/05/2025 9:00 AM EST Clinical Support Coumadin [address] [phone] 07/25/2025 8:30 AM EST Office Visit Adult Medicine [address] [phone] Rome Velazquez NP [address] [place] [address] 03/08/2026 2:40 PM EDT Office Visit Gastroenterology - [address] [phone] Susannah Harris NP [address] [address] Health Maintenance Due Date Last Done Comments Breast Cancer Screening 1975 Drug Screen 1973 Non-Opioid Controlled Substance Agreement 1973 Cervical Cancer Screening: Pap Smear 12/05/2009 12/05/2008 Medicare Annual Wellness Visit 06/13/2022 Social Influencers of Health Screening 06/13/2022 RSV Immunization Adult Patients (1 - Risk 50-74 years 1-dose series) 11/08/2023 Influenza Vaccine (#1) 2025 Lung Cancer Screening (Low Dose CT) 06/21/2026 06/21/2025 Cholesterol Screening (Lipid Panel) 12/20/2029 12/20/2024, 03/04/2023 [...] Diagnosis Comments POC PROTIME INR BLOOD Routine 06/28/2025 8:50 AM EST Pulmonary embolism, unspecified chronicity, unspecified pulmonary embolism type, unspecified whether acute cor pulmonale present (CMS/HCC V24, CMS/HCC V28) shelter (current) use of anticoagulants CT LUNG SCREENING Routine 06/21/2025 10: 53 AM EST Encounter for screening for malignant neoplasm of respiratory organs Nicotine dependence, cigarettes, uncomplicated POC PROTIME INR BLOOD Routine 06/21/2025 8:20 AM EST Pulmonary embolism, unspecified chronicity, unspecified pulmonary embolism type, unspecified whether acute cor pulmonale present (CMS/HCC V24, CMS/HCC V28) 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 POC PROTIME INR BLOOD Routine 05/31/2025 9:02 AM EST Pulmonary embolism, unspecified chronicity, unspecified pulmonary embolism type, unspecified whether acute cor pulmonale present (CMS/HCC V24, CMS/HCC V28) shelter (current) use of anticoagulants BILIRUBIN DUPLICATE PROCEDURE TO ORDER Routine 05/11/2025 8:41 AM EST Alkaline phosphatase elevation CBC WITH AUTO DIFFERENTIAL Routine 05/11/2025 8:41 AM EST Hematuria, unspecified type Lower abdominal pain COMPREHENSIVE METABOLIC PANEL Routine 05/11/2025 8:41 AM EST Hematuria, unspecified type Lower abdominal pain CBC AND DIFFERENTIAL Routine 05/11/2025 8:41 AM EST Hematuria, unspecified type Lower abdominal pain EARL URINE CULTURE TUBE Routine 05/11/2025 8:18 AM EST Hematuria, unspecified type Lower abdominal pain URINALYSIS WITH REFLEX MICROSCOPIC AND CULTURE Routine 05/11/2025 8:18 AM EST Hematuria, unspecified type Lower abdominal pain URINALYSIS WITH REFLEX MICROSCOPIC AND CULTURE Routine 05/11/2025 8:18 AM EST Hematuria, unspecified type Lower abdominal pain POC URINE AUTO W/O MICRO Routine 05/11/2025 7:56 AM EST Hematuria, unspecified type POC PROTIME INR BLOOD Routine 05/03/2025 9:03 AM EDT Pulmonary embolism, unspecified chronicity, unspecified pulmonary embolism type, unspecified whether acute cor pulmonale present (CMS/HCC V24, CMS/HCC V28) shelter (current) use of anticoagulants POC PROTIME INR BLOOD Routine 04/26/2025 9:07 AM EDT Pulmonary embolism, unspecified chronicity, unspecified pulmonary embolism type, unspecified whether acute cor pulmonale present (CMS/HCC V24, CMS/HCC V28) 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 Lot Number INR POC 2.1 Prothrombin Time POC Exp Date Blood 06/28/2025 8:50 AM EST Jac Dueñas MD POINT OF CARE TEST ENTER/EDIT OR DERABLES Final Result * CT Lung Screening (06/21/2025 10:53 AM EST) Anatomical Region Laterality Modality Chest Computed Tomogra phy 06/24/2025 4:02 AM EST Impressions 06/24/2025 4:11 AM EST No suspicious pulmonary nodules Lung RADS 2: Benign Appearance or Behavior - Continue annual screening with LDCT in 12 months. -------- FINAL REPORT -------- Dictated By: Alma Delia Cooper Dictated Date: 06/24/2025 04:02 ET Assigned Physician: Alma Delia Cooper Reviewed and Electronically Signed By: Alma Delia Cooper Signed Date: 06/24/2025 04:11 ET Workstation ID: [id number] Transcribed By: Self Edit Transcribed Date: 06/24/2025 04:02 ET Narrative 06/24/2025 4:11 AM EST Indication: Greater than 20 total pack-year smoking history, asymptomatic current smoker Technique: Low-dose CT scan of the chest obtained as a lung cancer screening study. Multiplanar reformatted images were obtained. Dose reduction technique: ASIR (Adaptive statistical iterative reconstruction) and/or AEC (automated exposure control) DLP: 170.39 mGy-cm COMPARISON: None.. FINDINGS: Lack of intravenous contrast limits evaluation of the [place], vascular structures and visualized abdominal viscera. Lungs/airways: Trachea and central airways are patent. Mild bronchial wall thickening. Mild emphysematous changes. Scattered sub-5 mm pulmonary nodules. Bibasilar atelectasis. Calcified granulomata. Base of the neck, mediastinum, heart, chest wall, vessels: The assessment of hilar lymphadenopathy is difficult without the use of IV contrast. Left-sided pacing device noted. Nonenlarged mediastinal lymph nodes. Prominent subcarinal lymph node measuring 9 mm. Minimal coronary artery calcification. Upper abdomen: This study was performed without contrast and with lower than standard dose. These factors reduce the sensitivity for detection of small lesions in the upper abdomen. Possible small hiatal hernia. Bones/soft tissues: Mild degenerative changes Procedure Note Alma Delia Cooper MD - 06/24/2025 Indication: Greater than 20 total pack-year smoking history, asymptomaticcurrent smoker Technique: Low-dose CT scan of the chest obtained as a lung cancerscreening study. Multiplanar reformatted images were obtained. Dosereduction technique: ASIR (Adaptive statistical iterative reconstruction)and/or AEC (automated exposure control) DLP: 170.39 mGy-cm COMPARISON: None.. FINDINGS: Lack of intravenous contrast limits evaluation of the [place],vascular structures and visualized abdominal viscera. Lungs/airways: Trachea and central airways are patent. Mild bronchialwall thickening. Mild emphysematous changes. Scattered sub-5 mm pulmonary nodules. Bibasilar atelectasis. Calcifiedgranulomata. Base of the neck, mediastinum, heart, chest wall, vessels: The assessmentof hilar lymphadenopathy is difficult without the use of IV contrast.Left-sided pacing device noted. Nonenlarged mediastinal lymph nodes.Prominent subcarinal lymph node measuring 9 mm. Minimal coronary arterycalcification. Upper abdomen: This study was performed without contrast and with lowerthan standard dose. These factors reduce the sensitivity for detection ofsmall lesions in the upper abdomen. Possible small hiatal hernia. Bones/soft tissues: Mild degenerative changes IMPRESSION: No suspicious pulmonary nodules Lung RADS 2: Benign Appearance or Behavior - Continue annual screeningwith LDCT in 12 months. -------- FINAL REPORT -------- Dictated By: Alma Delia Cooper Dictated Date: 06/24/2025 04:02 ET Assigned Physician: Alma Delia Cooper Reviewed and Electronically Signed By: Alma Delia Cooper Signed Date: 06/24/2025 04:11 ET Workstation ID: [id number] Transcribed By: Self Edit Transcribed Date: 06/24/2025 04:02 ET us Susu Rankin MD IM CT PROCEDURES Final Result * Bilirubin duplicate procedure to order (05/11/2025 8:41 AM EST) Total Bilirubin 0.2 0.0 - 1.4 mg/dL LAB CHEMISTRY METHOD 05/11/2025 1:03 PM EST [facility] Bilirubin, Direct <0.1 0.0 - 0.3 mg/dL LAB CHEMISTRY METHOD 05/11/2025 1:03 PM EST [facility] Bilirubin, Indirect LAB CHEMISTRY METHOD 05/11/2025 1:03 PM EST [facility] Comment:Unable to calculate Indirect Bilirubin. Blood Venous blood specimen / Unknown Venipuncture / Unknown 05/11/2025 8:41 AM EST 05/11/2025 8:41 AM EST us Rome Velazquez JAZZ MUSICIAN LAB BLOOD ORDERABLES Final R esult [facility] [address] [place] [address], [place] [phone] * (ABNORMAL) CBC auto differential (05/11/2025 8:41 AM EST) [facility] WBC 10.3 4.8 - 10.8 K/mcL LAB HEMETOLOGY METHOD 05/11/2025 10:27 AM [facility] RBC 3.80 3.80 - 4.80 M/mcL LAB HEMETOLOGY METHOD 05/11/2025 10:27 AM [facility] Hemoglobin 11.4(L) 11.5 - 16.0 g/dL LAB HEMETOLOGY METHOD 05/11/2025 10:27 AM [facility] Hematocrit 35.1 35.0 - 47.0 % LAB HEMETOLOGY METHOD 05/11/2025 10:27 AM [facility] MCV 92.4 79.0 - 98.0 FL LAB HEMETOLOGY METHOD 05/11/2025 10:27 AM [facility] MCH 30.0 27.0 - 32.0 pcg LAB HEMETOLOGY METHOD 05/11/2025 10:27 AM [facility] MCHC 32.5 32.0 - 37.0 g/dL LAB HEMETOLOGY METHOD 05/11/2025 10:27 AM [facility] RDW 15.0 11.0 - 15.0 % LAB HEMETOLOGY METHOD 05/11/2025 10:27 AM [facility] Platelets 288 130 - 400 K/mcL LAB HEMETOLOGY METHOD 05/11/2025 10:27 AM [facility] MPV 9.7 7.0 - 11.0 FL LAB HEMETOLOGY METHOD 05/11/2025 10:27 AM [facility] NRBC 0.0 <1.0 % LAB HEMETOLOGY METHOD 05/11/2025 10:27 AM [facility] NRBC Absolute 0.00 <0.10 K/mcL LAB HEMETOLOGY METHOD 05/11/2025 10:27 AM [facility] Neutrophils Relative 54.6 % LAB HEMETOLOGY METHOD 05/11/2025 10:27 AM [facility] Lymphocytes Relative 36.3 % LAB HEMETOLOGY METHOD 05/11/2025 10:27 AM [facility] Monocytes Relative 5.9 % LAB HEMETOLOGY METHOD 05/11/2025 10:27 AM [facility] Eosinophils Relative 1.7 % LAB HEMETOLOGY METHOD 05/11/2025 10:27 AM [facility] Basophils Relative 1.0 % LAB HEMETOLOGY METHOD 05/11/2025 10:27 AM [facility] Immature Granulocytes Relative 0.5 % LAB HEMETOLOGY METHOD 05/11/2025 10:27 AM [facility] Neutrophils Absolute 5.61 1.50 - 7.00 K/mcL LAB HEMETOLOGY METHOD 05/11/2025 10:27 AM [facility] Lymphocytes Absolute 3.73 1.00 - 5.00 K/mcL LAB HEMETOLOGY METHOD 05/11/2025 10:27 AM [facility] Monocytes Absolute 0.61 0.20 - 1.00 K/mcL LAB HEMETOLOGY METHOD 05/11/2025 10:27 AM [facility] Eosinophils Absolute 0.17 0.00 - 0.50 K/mcL LAB HEMETOLOGY METHOD 05/11/2025 10:27 AM [facility] Basophils Absolute 0.10 0.00 - 0.20 K/mcL LAB HEMETOLOGY METHOD 05/11/2025 10:27 AM [facility] Immature Granulocytes Absolute 0.05(H) 0.00 - 0.03 K/mcL LAB HEMETOLOGY METHOD 05/11/2025 10:27 AM [facility] Blood Venous blood specimen / Unknown Venipuncture / Unknown 05/11/2025 8:41 AM EST 05/11/2025 8:41 AM EST us Rome Velazquez NP LAB BLOOD ORDERABLES Final R esult [facility] [address] [place] [address], * (ABNORMAL) Comprehensive metabolic panel (05/11/2025 8:41 AM EST) Sodium 139 133 - 145 mmol/L LAB CHEMISTRY METHOD 05/11/2025 1:04 PM [facility] Potassium 4.7 3.5 - 5.5 mmol/L LAB CHEMISTRY METHOD 05/11/2025 1:04 PM [facility] Chloride 106 96 - 110 mmol/L LAB CHEMISTRY METHOD 05/11/2025 1:04 PM [facility] CO2 28 21 - 32 mmol/L LAB CHEMISTRY METHOD 05/11/2025 1:04 PM [facility] Anion Gap 5 3 - 11 LAB CHEMISTRY METHOD 05/11/2025 1:04 PM [facility] Glucose 75 70 - 100 mg/dL LAB CHEMISTRY METHOD 05/11/2025 1:04 PM [facility] BUN 11 5 - 25 mg/dL LAB CHEMISTRY METHOD 05/11/2025 1:04 PM [facility] Creatinine 0.72 0.50 - 1.10 mg/dL LAB CHEMISTRY METHOD 05/11/2025 1:04 PM [facility] eGFR 101 >=60 mL/min/1. 73m2 LAB CHEMISTRY METHOD 05/11/2025 1:04 PM [facility] Comment:Calculation based on the Chronic Kidney Disease Epidemiology Collaboration (CKD-EPI) equation refit without adjustment for race. BUN/Creatinine Ratio 15.3 LAB CHEMISTRY METHOD 05/11/2025 1:04 PM [facility] Calcium 9.1 8.5 - 10.5 mg/dL LAB CHEMISTRY METHOD 05/11/2025 1:04 PM [facility] AST (SGOT) 16 10 - 42 unit/L LAB CHEMISTRY METHOD 05/11/2025 1:04 PM [facility] ALT (SGPT) 29 10 - 60 unit/L LAB CHEMISTRY METHOD 05/11/2025 1:04 PM [facility] Alkaline Phosphatase 154(H) 42 - 121 unit/L LAB CHEMISTRY METHOD 05/11/2025 1:04 PM [facility] Total Protein 6.5 6.0 - 8.0 g/dL LAB CHEMISTRY METHOD 05/11/2025 1:04 PM [facility] Albumin 3.5 3.2 - 5.0 g/dL LAB CHEMISTRY METHOD 05/11/2025 1:04 PM [facility] Total Bilirubin 0.2 0.0 - 1.4 mg/dL LAB CHEMISTRY METHOD 05/11/2025 1:04 PM [facility] Blood Venous blood specimen / Unknown Venipuncture / Unknown 05/11/2025 8:41 AM EST 05/11/2025 8:41 AM EST us Rome Velazquez JAZZ MUSICIAN LAB BLOOD ORDERABLES Final R esult [facility] [address] [place] [address], * (ABNORMAL) Urinalysis with reflex microscopic and culture (05/11/2025 8:18 AM EST) Specific Bunch Urine 1.016 1.003 - 1.030 LAB URINALYSIS - AUTOMATED METHOD 05/11/2025 10:42 AM [facility] pH, Urine 6.0 5.0 - 8.0 pH LAB URINALYSIS - AUTOMATED METHOD 05/11/2025 10:42 AM [facility] Leukocytes, Urine Negative Negative LAB URINALYSIS - AUTOMATED METHOD 05/11/2025 10:42 AM [facility] Nitrite, Urine Negative Negative LAB URINALYSIS - AUTOMATED METHOD 05/11/2025 10:42 AM [facility] Protein, Urine Trace <=Trace mg/dL LAB URINALYSIS - AUTOMATED METHOD 05/11/2025 10:42 AM [facility] Glucose, Urine Negative Negative mg/dL LAB URINALYSIS - AUTOMATED METHOD 05/11/2025 10:42 AM [facility] Ketones, Urine Negative Negative mg/dL LAB URINALYSIS - AUTOMATED METHOD 05/11/2025 10:42 AM [facility] Urobilinogen , Urine 0.2 0.2 - 1.0 mg/dL LAB URINALYSIS - AUTOMATED METHOD 05/11/2025 10:42 AM [facility] Bilirubin, Urine Negative Negative LAB URINALYSIS - AUTOMATED METHOD 05/11/2025 10:42 AM [facility] Blood, Urine Moderate(A) Negative LAB URINALYSIS - AUTOMATED METHOD 05/11/2025 10:42 AM [facility] RBC, Urine 41.3(H) 0 - 4 /HPF LAB URINALYSIS - AUTOMATED METHOD 05/11/2025 10:42 AM [facility] WBC, Urine 0.8 0 - 4 /HPF LAB URINALYSIS - AUTOMATED METHOD 05/11/2025 10:42 AM [facility] Squamous Epithelial, Urine 17 0 - 60 /LPF LAB URINALYSIS - AUTOMATED METHOD 05/11/2025 10:42 AM [facility] Bacteria, Urine Negative Negative /HPF LAB URINALYSIS - AUTOMATED METHOD 05/11/2025 10:42 AM [facility] Hyaline Casts, Urine 0.4 0 - 3 /LPF LAB URINALYSIS - AUTOMATED METHOD 05/11/2025 10:42 AM EST [facility] Urine Urine specimen obtained by clean catch procedure / Unknown Non-blood Collection / Unknown 05/11/2025 8:18 AM EST 05/11/2025 8:18 AM EST Rome Velazquez JAZZ MUSICIAN LAB URINE ORDERABLES Final R esult Performing Organization Address City/[facility]/ZIP Co de Phone Number [facility] [address] [place] [address], [place] [phone] * Earl urine culture tube (05/11/2025 8:18 AM EST) Extra Tube Hold for add-ons. 05/11/2025 11:01 AM EST [facility] Comment:Auto resulted. Urine Urine specimen obtained by clean catch procedure / Unknown Non-blood Collection / Unknown 05/11/2025 8:18 AM EST 05/11/2025 8:18 AM EST us Rome Velazquez JAZZ MUSICIAN LAB URINE ORDERABLES Final R esult Performing Organization Address City/[facility] Co de Phone Number [facility] [address] [place] [address], [place] [phone] * (ABNORMAL) POC Urine Auto W/O Micro (05/11/2025 7:56 AM EST) Leukocytes UA POC Negative Negative Nitrite UA POC Negative Negative Urobilinogen UA POC Negative Negative Protein UA POC Negative Negative PH UA POC 6.0 5.0 - 9.0 Blood UA POC Positive(A) Negative, Trace Specific Bunch UA POC 1.015 1.001 - 1.035 Ketones UA POC Negative Negative Bilirubin UA POC Negative Negative Glucose UA POC Normal Normal, Trace Urine Urine specimen obtained by clean catch procedure / Unknown 05/11/2025 7:56 AM EST us Rome Velazquez JAZZ MUSICIAN POINT OF CARE TEST ENTER/RACHAEL T ORDERABLES Final Result * Hepatitis C antibody (12/20/2024 10:48 AM EDT) [facility] Hepatitis C Antibody Negative Negative LAB CHEMISTRY METHOD 12/20/2024 5:58 PM EDT [facility] Blood Venous blood specimen / Unknown Venipuncture / Unknown 12/20/2024 10:48 AM EDT 12/20/2024 10:48 AM EDT Rome Velazquez JAZZ MUSICIAN LAB BLOOD ORDERABLES Final R esult [facility] [address] [place] [address], [place] [phone] * (ABNORMAL) Lipid panel with reflex to direct LDL (12/20/2024 10:48 AM EDT) [facility] Cholesterol 261(H) 0 - 200 mg/dL LAB CHEMISTRY METHOD 12/20/2024 4:52 PM EDT [facility] Triglycerides 249(H) 0 - 150 mg/dL LAB CHEMISTRY METHOD 12/20/2024 4:52 PM T [facility] HDL 73 >=40 mg/dL LAB CHEMISTRY METHOD 12/20/2024 4:52 PM EDT [facility] LDL Calculated 138(H) 0 - 100 mg/dL LAB CHEMISTRY METHOD 12/20/2024 4:52 PM EDT [facility] VLDL Cholesterol [place] 49.8 mg/dL LAB CHEMISTRY METHOD 12/20/2024 4:52 PM EDT [facility] Non HDL Chol. (LDL+VLDL) 188(H) <145 mg/dL LAB CHEMISTRY METHOD 12/20/2024 4:52 PM EDT [facility] Chol/HDL Ratio 3.6 0.0 - 4.4 LAB CHEMISTRY METHOD [facility] Blood Venous blood specimen / Unknown Venipuncture / Unknown 12/20/2024 10:48 AM EDT 12/20/2024 10:48 AM EDT Rome Velazquez JAZZ MUSICIAN LAB BLOOD ORDERABLES Final R esult [facility] [address] [place] [address], [place] [phone] * Colonoscopy (04/21/2024) Colonoscopy abnormal, abstracted Anatomical Region Laterality Modality Other Historical Provider HEALTH MAINTENANCE Final Result * Pap Smear (12/05/2008) Pap smear no interpretation , abstracted Historical Provider HEALTH MAINTENANCE Final Result from Last 3 Months or Most Recently Relevant to Health Maintenance Insurance MEDICARE [place]ICAID - [place] Care Teams Network Engineer Administrator Relationship Specialty Start Date End Date Jac Dueñas MD [address] [place] [address] PCP - General 05/06/1999
--- OUTSIDE RECORDS SUMMARY | 2025-07-04 18:16 | XMS_ITS | Encounter Summary ---
Author Organization [facility] [place] [address] Care Team Providers Care Siphon Operator Name Role Phone Jac Dueñas MD Primary Care Provider Encounter Details Date Type Department Care Team (Late Contact Info) Description 05/11/2025 Results Follow-Up [address] [phone] Rome Velazquez NP [address] [place], [place] Social History Tobacco Use Types Packs/Day Years [...] AM EST documented as of this encounter Plan of Treatment Upcoming Encounters Date Type Department Care Team (Late Contact Info) Description 07/05/2025 9:00 AM EST Clinical Support Coumadin Clinic [address] [phone] 07/25/2025 8:30 AM EST Office Visit [address] [phone] Rome Velazquez, BLUEPRINTER [address] [place], [place] 03/08/2026 2:40 PM EDT Office Visit Gastroenterology - [address] [phone] Susannah Harris, SULLY [address] [phone] documented as of this encounter Visit Diagnoses Not on filedocumented in this encounter Additional Health Concerns Assessment Noted Time PHQ-9 Depression Total Score: 0 12/21/19 25 10:00 AM EDT documented as of this encounter Care Teams Siphon Operator Relationship Specialty Start Date End Date Jac Dueñas MD [address] [place], [place] PCP - General 05/06/1999 documented as of this encounter
--- OUTSIDE RECORDS SUMMARY | 2025-07-04 18:16 | XMS_ITS | Encounter Summary ---
Author Organization [facility] Address [address] [place] [address] Care Team Providers Care Mixing Engineer Name Role Phone Jac Dueñas MD Primary Care Provider [phone] Reason for Visit * Reason Onset Date Comments Elevated LFTs 05/11/2025 Encounter Details Date Type Department Care Team (Late st Contact Info) Description 05/11/2025 Results Follow-Up Adult Medicine [facility] [address] [place] [address] Rome Velazquez NP [address] [place], [place] Social History Tobacco Use Types Packs/Day [...] as of this encounter Progress Notes * Rome Velazquez NP - 05/11/2025 6:20 PM EST Patient kidney function electrolytes are normal. However, 1 of liver function test is slightly elevated. No acute concerns. But I would like patient to liver function test in 1 to 2 months. Order sent to the lab. Please call patient and inform of above message. documented in this encounter Plan of Treatment Upcoming Encounters Date Type Department Care Team ([facility] st Contact Info) Description 07/05/2025 9:00 AM EST Clinical Support Coumadin [address] [phone] 07/25/2025 8:30 AM EST Office Visit Adult Medicine [address] [phone] Rome Velazquez NP [address] [place] [address] 03/08/2026 2:40 PM EDT Office Visit Gastroenterology - [address] [place] [phone] Susannah Harris NP [address] [place] [id number] Scheduled Orders Name Type Priority Associated Diagnoses Orde r Schedule Hepatic function panel Lab Routine Alkaline phosphatase elevation Expected: 06/10/2025, Expires: 05/11/2026 documented as of this encounter Visit Diagnoses Diagnosis Alkaline phosphatase elevation- Primary Other nonspecific abnormal serum enzyme levels documented in this encounter Additional Health Concerns Assessment Noted Time PHQ-9 Depression Total Score: 0 12/21/19 25 10:00 AM EDT documented as of this encounter Care Teams Mixing Engineer Relationship Specialty Start Date End Date Jac Dueñas MD [address] [place] [address] PCP - General 05/06/1999 documented as of this encounter
[2025-07-04 19:18] VITALS: BP 0/0; PULSE 0; RESP 20; TEMP -17.7; TEMP 0; O2SAT 0
== END 2025-07-04 19:20 | disposition home or self-care (01) ==
PROVIDERS: Physician Assistant Medical; Emergency Provider Emergency Medicine; PCP Internal Medicine
DX: R31.9 Hematuria, unspecified (principal); R10.A1 Flank pain, right side; R35.0 Frequency of micturition; M54.50 Low back pain, unspecified; Z79.01 Long term (current) use of anticoagulants; Z79.899 Other long term (current) drug therapy; F17.210 Nicotine dependence, cigarettes, uncomplicated
CPT/HCPCS: 36415; 74176; 80053; 81001; 83735; 85025; 85610; 99282; 99284

== ENCOUNTER → 2025-07-04 17:52 | Outpatient (BNV) | payer MEDICARE, MEDICAID, SELFPAY | PROVIDERS: Emergency Provider Emergency Medicine; PCP Internal Medicine; Visit Provider Student in an Organized Health Care Education/Training Program | DX: R31.9 Hematuria, unspecified (principal); R10.A1 Flank pain, right side | CPT/HCPCS: 74176 ==